=== PATIENT | female | born 1945 | race Caucasian/White ===

== ENCOUNTER → 2017-07-10 08:46 | Outpatient (CLI) | payer MEDICARE, SELFPAY ==
--- NOTE | 2017-07-10 08:51 | XR_ITS ---
XR hand LT min 3V HISTORY: ITS.REASON: Possible trigger finger ORDERING PHYSICIAN: Hitesh Garcia MD PATIENT AGE: 72 years COMPARISON: None FINDINGS: There are osteoarthritic changes of the first metacarpal carpal joint, the DIPs, PIPs, DIPs of the digits, and radial ulnar joint. There is flexion deformity of the fourth finger at the PIP. No fracture or dislocation. No lytic or blastic change. IMPRESSION: Osteoarthritis. Flexion deformity at the PIP of the fourth digit
== END ==
PROVIDERS: PCP Family Medicine; Visit Provider Orthopaedic Surgery
DX: M79.645 Pain in left finger(s) (principal)
CPT/HCPCS: 73130

== ENCOUNTER → 2017-09-11 13:55 | Outpatient (CLI) | payer MEDICARE, SELFPAY ==
[2017-09-11 14:23] LABS: Basophils # 0.1 K/mm3 (0-0.2); Basophils % 1.1 % (0.1-2.0); Eosinophils # 0.1 K/mm3 (0.0-0.4); Lymphocytes # 1.9 K/mm3 (0.7-4.5); Lymphocytes % 40.1 K/mm3 (10-50); Mean Corpuscular HGB Conc 33.3 g/dL (31.8-35.4); Mean Corpuscular Hemoglobin 29.7 pg (27.0-31.2); Mean Corpuscular Volume 89.2 fl (81-99); Mean Platelet Volume 8.5 fl (7.4-10.4); Monocytes # 0.3 K/mm3 (0.1-1.0); Monocytes % 6.2 % (1.7-9.3); Neutrophils # 2.3 K/mm3 (1.8-7.8); Neutrophils % 49.6 % (37.0-80.0); Platelet Count 174 K/mm3 (142-424); Red Blood Count 4.71 M/mm3 (4.20-5.40); Red Cell Distribution Width 12.9 % (11.5-17.5); White Blood Count 4.7 K/mm3 (4.8-10.8)
[2017-09-11 15:25] LABS: Alanine Aminotransferase 32 U/L (12-78); Albumin Level 3.8 gm/dL (3.4-5.0); Albumin/Globulin Ratio 1.3 (1.1-1.8); Alkaline Phosphatase 78 U/L (46-116); Anion Gap 13.7 mEq/L (5-15); Aspartate Amino Transferase 23 U/L (15-37); Bilirubin,Total 0.6 mg/dL (0.2-1.0); Blood Urea Nitrogen 19 mg/dL (7-18); Calcium 9.4 mg/dL (8.5-10.1); Carbon Dioxide 29 mmol/L (21.0-32.0); Chloride 102 mmol/L (98-107); Chol/HDL Ratio 2.3 (1-3.5); Cholesterol 159 mg/dL (140-200); Creatinine,Serum 0.77 mg/dL (0.55-1.02); Estimated Glomerular Filt Rate 74 ml/min (>60); GFR (African American) 89 ML/MIN (>60); Globulin 2.9 gm/dl (1.3-3.2); Glucose 248 mg/dL (74-106); HDL Cholesterol 69 mg/dL (29-89); LDL Cholesterol 57 mg/dL (0-130); Potassium 4.7 mmoL/L (3.5-5.1); Sodium 140 mmol/L (136-145); Thyroid Stimulating Hormone 1.92 uIU/ml (0.358-3.740); Total Protein,Serum 6.7 gm/dL (6.4-8.2); Triglycerides 163 mg/dL (30-200); VLDL Cholesterol 33 mg/dL (0-40)
[2017-09-13 09:17] LABS: Creatinine, Urine 32.8 mg/dL (Not Estab.); Microalbumin, Urine <3.0 ug/mL (Not Estab.)
[2017-09-13 20:10] LABS: Vitamin B12 1077 pg/mL (232-1245); Vitamin D 25 Hydroxy 51.7 ng/mL (30.0-100.0)
== END ==
PROVIDERS: Visit Provider Family Medicine
DX: E53.8 Deficiency of other specified B group vitamins (principal); E78.2 Mixed hyperlipidemia; E11.9 Type 2 diabetes mellitus without complications; E55.9 Vitamin D deficiency, unspecified; I10 Essential (primary) hypertension
CPT/HCPCS: 36415; 80053; 80061; 82043; 82570; 82607; 82652; 84443; 85025

== ENCOUNTER → 2017-09-13 11:22 | Outpatient (POV) | payer MEDICARE, SELFPAY | PROVIDERS: Visit Provider Podiatrist | DX: Z00.00 Encounter for general adult medical examination without abnormal findings (principal) ==

== ENCOUNTER 2018-04-09 08:55 | Outpatient (CLI) | payer MEDICARE, SELFPAY ==
[2018-04-09 09:02] VITALS: BMI 26.4
[2018-04-09 09:30] LABS: Calcium 8.8 mg/dL (8.5-10.1); Creatinine Clearance Estimated 62 mL/min (50-200); Creatinine,Serum 0.73 mg/dL (0.55-1.02); Estimated Glomerular Filt Rate 79 ml/min (>60); GFR (African American) 95 ML/MIN (>60)
[2018-04-09 09:31] LABS: Albumin Level 3.4 gm/dL (3.4-5.0)
[2018-04-09 10:10] VITALS: BP 137/65; PULSE 67; RESP 18
[2018-04-09 10:25] VITALS: BP 133/57; PULSE 61; RESP 18
== END 2018-04-09 10:35 | disposition home or self-care (01) ==
LOC: INF 09:00
PROVIDERS: Visit Provider Family Medicine
DX: M85.89 Other specified disorders of bone density and structure, multiple sites (principal)
CPT/HCPCS: 82040; 82310; 82565; 96374; J3489

== ENCOUNTER → 2018-04-18 08:41 | Outpatient (CLI) | payer MEDICARE, SELFPAY ==
--- NOTE | 2018-04-18 08:43 | MM_ITS ---
MM Dig screening mamm BI w/CAD CAD Screening COMPARISON: Digital mammograms with CAD 05/10/2015 and 05/16/2016 INDICATION: There is a history of breast cancer patient's sister diagnosed at age 60 TECHNIQUE: Standard CC and MLO images were obtained. R2 CAD reviewed. FINDINGS: Moderate diffuse heterogenic fibroglandular densities are seen in the central portions of both breasts. There are few scattered benign-appearing calcination is in each breast and there is arterial calcification right breast. There is a mole marker left breast. There is no suspicious lesion and there are no suspicious microcalcifications. IMPRESSION: Stable exam no suspicious lesion seen BI-RADS Category: 2 Benign Finding(s) RECOMMENDED FOLLOW-UP: 1YR - 1 YEAR FOLLOW-UP (A letter has been sent to the patient regarding results of the study.)
== END ==
PROVIDERS: PCP Family Medicine; Visit Provider Family Medicine
DX: Z12.31 Encounter for screening mammogram for malignant neoplasm of breast (principal)
CPT/HCPCS: 77067

== ENCOUNTER → 2018-07-22 08:26 | Outpatient (CLI) | payer MEDICARE, SELFPAY ==
[2018-07-22 09:12] LABS: Basophils # 0.1 K/mm3 (0-0.2); Basophils % 1.3 % (0.1-2.0); Eosinophils # 0.2 K/mm3 (0.0-0.4); Eosinophils % 4.2 % (0.1-12.0); Hemoglobin 14.7 g/dL (12.2-16.2); Lymphocytes # 2.7 K/mm3 (0.7-4.5); Lymphocytes % 52.8 % (10-50); Mean Corpuscular HGB Conc 32.7 g/dL (31.8-35.4); Mean Corpuscular Hemoglobin 29.5 pg (27.0-31.2); Mean Corpuscular Volume 90.2 fl (81-99); Mean Platelet Volume 7.8 fl (7.4-10.4); Monocytes # 0.3 K/mm3 (0.1-1.0); Monocytes % 6.7 % (1.7-9.3); Neutrophils # 1.8 K/mm3 (1.8-7.8); Platelet Count 177 K/mm3 (142-424); Red Blood Count 4.99 M/mm3 (4.20-5.40); Red Cell Distribution Width 13.2 % (11.5-17.5); White Blood Count 5.1 K/mm3 (4.8-10.8)
[2018-07-22 09:40] LABS: MANUAL DIFFERENTIAL MANUAL DIFFERENTIAL (MANUAL DIFF)
[2018-07-22 10:57] LABS: Alanine Aminotransferase 26 U/L (12-78); Albumin/Globulin Ratio 1.4 (1.1-1.8); Alkaline Phosphatase 45 U/L (46-116); Anion Gap 15.1 mEq/L (5-15); Aspartate Amino Transferase 20 U/L (15-37); Bilirubin,Total 0.9 mg/dL (0.2-1.0); Blood Urea Nitrogen 14 mg/dL (7-18); Calcium 9.3 mg/dL (8.5-10.1); Carbon Dioxide 28 mmol/L (21.0-32.0); Chloride 104 mmol/L (98-107); Chol/HDL Ratio 2.3 (1-3.5); Cholesterol 151 mg/dL (140-200); Creatinine,Serum 0.74 mg/dL (0.55-1.02); Eosinophils % 3 % (0-3); Estimated Glomerular Filt Rate 77 ml/min (>60); GFR (African American) 93 ML/MIN (>60); Globulin 2.9 gm/dl (1.3-3.2); Glucose 142 mg/dL (74-106); HDL Cholesterol 65 mg/dL (29-89); LDL Cholesterol 63 mg/dL (0-130); Lymphocytes % 51 % (10-50); Monocytes % 6 % (2-9); Neutrophils % 39 % (42-76); Potassium 4.1 mmoL/L (3.5-5.1); RBC Morphology Normal; Sodium 143 mmol/L (136-145); Thyroid Stimulating Hormone 3.76 uIU/ml (0.358-3.740); Total Cells Counted 100; Total Protein,Serum 6.9 gm/dL (6.4-8.2); Triglycerides 113 mg/dL (30-200); VLDL Cholesterol 23 mg/dL (0-40)
[2018-07-22 10:58] LABS: Platelet Estimate Normal
[2018-07-23 10:14] LABS: Creatinine, Urine 96.1 mg/dL (Not Estab.); Microalbumin, Urine 5.9 ug/mL (Not Estab.)
== END ==
PROVIDERS: Visit Provider Internal Medicine Endocrinology, Diabetes & Metabolism
DX: E11.65 Type 2 diabetes mellitus with hyperglycemia (principal); Z79.84 Long term (current) use of oral hypoglycemic drugs
CPT/HCPCS: 36415; 80053; 80061; 82043; 82570; 84443; 85007; 85025

== ENCOUNTER 2018-08-05 11:00 | Outpatient (RCR) | payer MEDICARE, SELFPAY ==
--- NOTE | 2018-06-02 16:19 | HMH.PTOPEV ---
PT Outpatient Evaluation Rehab PT Outpatient Evaluation Start: 06/02/18 16:00 Freq: Status: Active Protocol: Document 06/02/18 16:01 HUGH (Rec: 06/02/18 16:14 PHORNE [id number]) Electronically Signed By Lexx Mehta, PT 06/02/18 16:01 Outpatient Therapy Subjective History Subjective History Pt is 73 yowf who presents with c/o decreased balance, especially during ambulation, x ~ 6 mos with insidious, gradual onset of symptoms. She reports often feeling like I 'm veering off to the side when I walk. and c/o decreased endurance with most activity. She reports that ~ 2 yrs ago she fell on a sidewalk with resulting pelvic fxs and humerus fx that had to be repaired with a reverse total shld surgery. She also reports she has hx of blurred vision due to problems with her retina, but she sees an opthalmalogist every 6 mos. PMH: HTN, DM-II, Aortic valve replacement. Chief Complaint Weakness Symptoms Relieved By Nothing Symptoms Aggravated By Walking Prior Functional Limitations Walking Stairs Current Functional Limitations Walking Stairs Balance Level of pain today (0-10) 0 Pain scale - at its worst (0-10) 0 Balance Eval Hx of Falls Hx Falls Yes Number in last 6 months 0 Gait/Posture Asssessment General Gait Observation Wide Based Gait Assistive Devices None / NA Hip Observation in Gait Swing Decreased Flexion Hip Observation in Gait Stance Inadequate Extension Ankle/Foot Observation in Gait Swing No Deviation Ankle/Foot Observation in Gait Stance No Deviation Body Alignment Posture Rigid Nystagmus Nystagmus Presence None Oculomotor Gaze Oculomotor Gaze Nml: Vergence Smooth Pursuit Saccades VOR Cancellation [place] Feet Together/Eyes open/Stable Surface pass Feet Together/Eyes Closed/Stable Surface pass Feet Together/Eyes open/Unstable Surface pass Feet Together/Eyes Closed/Unstable pass Surface Dynamic Gait Index Test Protocol Gait Level Whitaker
--- NOTE | 2018-07-08 08:51 | HMH.RHREAS ---
Rehab Reassessment Rehab OP Re-assessment Start: 07/08/18 08:48 Freq: Status: Active Protocol: Document 07/08/18 08:48 HUGH (Rec: 07/08/18 08:51 HUGH [id number]) Electronically Signed By Lexx Mehta, PT 07/08/18 08:48 Rehab Re-assessment Subjective Subjective Pt reports feeling stronger with better balance and less anxious when walking outside. Objective Objective Notes Dynamic Gait Index (DGI)= 21/ 24. MMT rick LE 4+/5 throughout . Assessment Progress Assessment Progressing as Expected Assessment Notes Pt with significant improvement in static and dynamic balance. DGI is 3 pts higher. Patient goals met ST,2,3,4 LT Goals Not Met LT,2,3,5 Revised Goals None Plan Plan Continue per initial POC. Transition to independent with wellness program. Frequency of Therapy 1-2 x/wk Duration of therapy 4 wks Time and Billing Re-Eval Time 15 Re-Eval Billing Units 1 PHYSICIAN CERTIFICATION: I certify the specified therapy services for Halley Stallworth are required, authorized, and reviewed every 30 days.
== END 2018-08-05 11:05 | disposition home or self-care (01) ==
LOC: PT 11:00
PROVIDERS: Visit Provider Family Medicine
DX: R27.0 Ataxia, unspecified (principal)
CPT/HCPCS: 97110; 97112; 97163; 97164

== ENCOUNTER → 2019-01-20 11:40 | Outpatient (CLI) | payer MEDICARE, SELFPAY ==
[2019-01-20 14:39] LABS: Free T4 (Free Thyroxine) 0.89 ng/dl (0.76-1.46); Thyroid Stimulating Hormone 1.92 uIU/ml (0.358-3.740)
[2019-01-21 16:46] LABS: Thyroglobulin Level <1.0 IU/mL (0.0-0.9); Triiodothyronine (T3) Free 2.7 pg/mL (2.0-4.4)
== END ==
PROVIDERS: Visit Provider Internal Medicine Endocrinology, Diabetes & Metabolism
DX: E78.5 Hyperlipidemia, unspecified (principal); E34.9 Endocrine disorder, unspecified; E11.65 Type 2 diabetes mellitus with hyperglycemia; R94.6 Abnormal results of thyroid function studies; Z79.84 Long term (current) use of oral hypoglycemic drugs
CPT/HCPCS: 36415; 84439; 84443; 84481; 86800

== ENCOUNTER → 2019-06-01 08:55 | Outpatient (CLI) | payer MEDICARE, SELFPAY ==
--- NOTE | 2019-06-01 09:03 | MM_ITS ---
PROCEDURE: MM DIG SCREENING MAMM BI W/CAD CLINICAL INDICATION: SCREENING There is a history of breast cancer in patient's sister diagnosed at age 60. COMPARISON: [facility] DIG MAMM-SCREEN AGUSTINA from 05/10/2015 [facility] DIG MAMM-SCREEN AGUSTINA W/CAD from 05/16/2016 [facility] MM Dig screening mamm BI w/CAD from 04/18/2018 TECHNIQUE: Standard CC and MLO images and 3D Tomosynthesis was obtained. R2 CAD reviewed. FINDINGS: Moderate diffuse somewhat heterogenic fibroglandular densities are seen in the central portions of both breasts. There are scattered benign-appearing calcifications in each breast and there is minimal arterial calcification noted bilaterally. Twan images are helpful in this type of heterogenic breast parenchyma and I see no suspicious lesion in either breast. There are no suspicious microcalcifications. IMPRESSION: Moderate breast density with no suspicious lesions seen BI-RAD Category: 2 Benign Finding(s) FOLLOW-UP: 1YR 1 Year Follow-up (A letter has been sent to the patient regarding results of the study.) Dictated by: Dr. Fausto Rubio MD 06/02/2019 09:[address] Fausto Rubio MD in [place] 06/02/2019 09:36
== END ==
PROVIDERS: PCP Family Medicine; Visit Provider Family Medicine
DX: Z12.31 Encounter for screening mammogram for malignant neoplasm of breast (principal)
CPT/HCPCS: 77063; 77067

== ENCOUNTER → 2019-08-17 08:19 | Outpatient (CLI) | payer MEDICARE, SELFPAY ==
--- NOTE | 2019-08-17 08:42 | XR_ITS ---
PROCEDURE: XR DEXA AXIAL SKELETON CLINICAL HISTORY: OSTEOPENIA COMPARISON: No exams were available for comparison FINDINGS: Right femoral neck density 0.713 grams/centimeters sq with a T-score of -1.2. Post a left femur density is 0.760 grams/centimeters sq with a T-score of -1 point. L1-L4 density is 1.102 grams/centimeters sq with a T-score of 0.5. IMPRESSION: Osteopenia with moderate fracture risk. Treatment advised. Suggest follow-up exam in 2 years Dictated by: Juan Jose Barrios MD 08/17/2019 15:04 Electronically signed by Juan Jose Barrios MD in [place] 08/17/2019 15:04
--- NOTE | 2019-08-17 08:43 | FL_ITS ---
PROCEDURE: FL UPPER GI W AIR CLINICAL INDICATION: ESOPHAGEAL DYSPHAGIA COMPARISON: No exams were available for comparison TECHNIQUE: FLUOROSCOPY TIME : 1 minutes and 31 seconds FINDINGS: The esophagus, stomach, and duodenum have an unremarkable appearance.There is a small sliding hiatal hernia with non constricting Schatzki's ring. There has been a prior cholecystectomy. There was some minimal GE reflux. No ulcer or mass evident. No mucosal abnormalities apparent. There is normal peristalsis. The duodenal C-loop is nondisplaced. There has been a prior median sternotomy. IMPRESSION: Small sliding hiatal hernia with non constricting Schatzki's ring and minimal GE reflux Dictated by: Juan Jose Barrios MD 08/17/2019 14:47 Electronically signed by Juan Jose Barrios MD in [place] 08/17/2019 14:47
[2019-08-17 10:27] LABS: Chloride 105 mmol/L (98-107); Potassium 4.1 mmoL/L (3.5-5.1); Sodium 138 mmol/L (136-145)
[2019-08-17 10:30] LABS: Alanine Aminotransferase 17 U/L (12-78); Albumin Level 4.2 g/dl (3.5-5.0); Albumin/Globulin Ratio 1.8 (1.1-1.8); Alkaline Phosphatase 47 U/L (38-126); Anion Gap 8.1 mEq/L (5-15); Aspartate Amino Transferase 29 U/L (14-36); Bilirubin,Total 0.8 mg/dl (0.2-1.3); Blood Urea Nitrogen 17 mg/dl (7-17); Carbon Dioxide 29 mmol/L (22.0-30.0); Cholesterol 130 mg/dl (140-200); Estimated Glomerular Filt Rate 82 ml/min (>60); GFR (African American) 99 ML/MIN (>60); Globulin 2.4 g/dL (1.3-3.2); Total Protein,Serum 6.6 g/dl (6.3-8.2); Triglycerides 118 mg/dl (30-150); VLDL Cholesterol 24 mg/dL (0-40)
[2019-08-17 10:31] LABS: Chol/HDL Ratio 2.2 (1-3.5); HDL Cholesterol 59 mg/dl (40-60)
[2019-08-17 10:37] LABS: Calcium 9.4 mg/dl (8.4-10.2)
[2019-08-17 10:41] LABS: Direct LDL Cholesterol 67.04 mg/dL (100-129)
[2019-08-17 10:49] LABS: Glucose 149 mg/dl (74-100)
[2019-08-17 11:01] LABS: Thyroid Stimulating Hormone 3.66 uIU/mL (0.465-4.68)
[2019-08-18 09:40] LABS: Microalbumin, Urine 29.2 ug/mL (Not Estab.)
[2019-08-18 12:44] LABS: Vitamin B12 837 pg/mL (232-1245); Vitamin D 25 Hydroxy 61.9 ng/mL (30.0-100.0)
== END ==
PROVIDERS: PCP Family Medicine; Visit Provider Family Medicine
DX: R13.10 Dysphagia, unspecified (principal); M85.89 Other specified disorders of bone density and structure, multiple sites; I10 Essential (primary) hypertension; E53.8 Deficiency of other specified B group vitamins; E78.1 Pure hyperglyceridemia; E78.2 Mixed hyperlipidemia; E55.9 Vitamin D deficiency, unspecified
CPT/HCPCS: 36415; 74246; 77080; 80053; 80061; 82043; 82570; 82607; 82652; 84443

== ENCOUNTER → 2019-09-02 10:00 | Outpatient (CLI) | payer MEDICARE, SELFPAY ==
[2019-09-03 14:14] LABS: Covid-19 Nasal PCR Sendout Lex NOT DETECTED
== END ==
PROVIDERS: Visit Provider Internal Medicine Gastroenterology
DX: Z03.818 Encounter for observation for suspected exposure to other biological agents ruled out (principal)
CPT/HCPCS: U0004

== ENCOUNTER 2019-09-04 09:49 | Day surgery (SDC) | payer MEDICARE, SELFPAY ==
--- NOTE | 2019-08-31 15:24 | SUR.PREOP ---
08/31/2019--PHONE CALL MADE TO PATIENT. PATIENT UNDERSTANDS THAT LAB WORK AND COVID TESTING NEEDS TO BE COMPLETED @ 0930 ON 09/02/2019. PATIENT UNDERSTANDS IF LAB WORK AND COVID-19 TESTS ARE NOT COMPLETED BY 12PM ON THAT DATE, THE SURGERY SCHEDULED WILL BE CANCELLED AND RESCHEDULED FOR ANOTHER TIME.
[2019-09-01 12:17] VITALS: BMI 26.6
[2019-09-04] VITALS (7 sets, daily range): BP systolic 89–146; BP diastolic 46–67; PULSE 50–64; RESP 18; TEMP 36.1; O2SAT 92–98
[2019-09-04 10:26] LABS: POC Glucose,Bedside 147 (70-110)
--- NOTE | 2019-09-04 11:41 | P.PCN_ITS ---
[facility] Procedure Note Procedure Note:: Upper Endoscopy Procedure Report: Esophagogastroduodenoscopy with cold biopsies and TTS balloon dilation Endoscopost: Diego Grimaldo II, MD Referring Physician: Mateusz Estevez MD Date of Procedure: September 04, 2019 Equipment: Olympus GIF 180 standard upper endoscope Sedation: MAC sedation Indications: Mrs. Stallworth is a 74-year-old female with increasing dysphagia to meats/solids. She also has had some heartburn, indigestion and belching. She reports no bloating, nausea or early satiety. She is not on any PPI therapy. She did have a barium swallow/upper GI series on August 17, 2019. She did have a very small hiatal hernia with non-constricting Schatzki's ring and minimal GE reflux. The patient does have some alternating constipation with diarrhea (alternating IBS). The patient does have a family history of colon cancer (mother in her 60s). The patient did have 3 consecutive normal colonoscopies in August 1999, December 2004 and January 2010. She has not had a colonoscopy since 2009. Procedure: Prior to the procedure, a history and physical exam was performed, and patient's medications and allergies were reviewed. The risks, benefits and alternatives of the sedation and procedure were discussed with the patient. All questions were answered and informed consent was obtained. The patient was brought to the procedure room. Patient identification and proposed procedure were verified by the physician and the nurse. The patient was placed in a left lateral decubitus position and the scope was passed under direct vision. Throughout the procedure, the patient's blood pressure, pulse, and oxygen saturations were monitored continuously. The upper GI endoscopy was accomplished without difficulty. The patient tolerated the procedure well. Findings: The scope was passed directly into the upper esophagus and advanced to the third portion of the duodenum. The post bulbar duodenum and duodenal bulb were normal with normal mucosa and conniventes. There was minimal scalloping of the duodenal conniventes so biopsies were obtained to rule out celiac disease. The scope was withdrawn through a normal duodenal bulb and pylorus into the stomach. There was bile reflux with some mild linear reactive gastropathy of the antrum and body. There were a couple of erosions identified. The remainder of the antrum, body and fundus of the stomach were grossly normal. Upon retroflexion there was a very small 1 to 2 cm sliding hiatal hernia. 2 biopsies were taken in the antrum and along the lesser curvature for histology to rule out gastritis and/or H pylori. The scope was then withdrawn into the esophagus. There was a distal Schatzki's ring. There was also grade A?B reflux esophagitis (LA classification). Biopsies were taken at the GE junction. This Schatzki's ring and entire esophagus were dilated to 60 Armenian/20 mm with a TTS hydrostatic balloon. There was some resistance at the cricopharyngeus. The remainder of the esophageal mucosa was normal. Impression: 1. Schatzki's ring dilated to 20 mm 2. Grade A?B reflux esophagitis with very small 1 to 2 cm hiatal hernia 3. Bile reflux with linear reactive gastropathy Plan: I would recommend PPI therapy daily for 3 months for healing of the reflux esophagitis and Schatzki's ring. I will follow-up the biopsies. I would encourage repeat surveillance colonoscopy due to her family history and length recent surveillance interval 10 years.
== END 2019-09-04 12:58 | disposition home or self-care (01) ==
LOC: OUTP 09:51
PROVIDERS: PCP Family Medicine; Visit Provider Internal Medicine Gastroenterology
PROC: 0DJ08ZZ Inspection of Upper Intestinal Tract, Via Natural or Artificial Opening Endoscopic (ICD-10-PCS; CPT 43235; principal; 2019-09-04 11:00)
DX: K22.2 Esophageal obstruction (principal); K44.9 Diaphragmatic hernia without obstruction or gangrene; K31.9 Disease of stomach and duodenum, unspecified; K21.0 Gastro-esophageal reflux disease with esophagitis; R13.10 Dysphagia, unspecified; E11.9 Type 2 diabetes mellitus without complications; Z79.84 Long term (current) use of oral hypoglycemic drugs; I10 Essential (primary) hypertension; K58.2 Mixed irritable bowel syndrome
CPT/HCPCS: 43239; 43249; 82962; 88305; C1726

== ENCOUNTER → 2019-10-02 11:03 | Outpatient (CLI) | payer MEDICARE, SELFPAY ==
[2019-10-02 13:40] LABS: Coronavirus 19 IgG Antibody Negative (Negative); Coronavirus 19 IgM Antibody Negative (Negative)
== END ==
PROVIDERS: Visit Provider Internal Medicine Gastroenterology
DX: Z01.818 Encounter for other preprocedural examination (principal)
CPT/HCPCS: 36415; 86328

== ENCOUNTER 2019-10-05 09:58 | Day surgery (SDC) | payer MEDICARE, SELFPAY ==
--- NOTE | 2019-09-30 10:35 | SUR.PREOP ---
Instructed to come to [facility] for COVID testing 10/01 between 8-
[2019-10-05] VITALS (7 sets, daily range): BP systolic 72–150; BP diastolic 38–83; PULSE 47–58; RESP 18; TEMP 36.3–36.6; O2SAT 96–100; BMI 26.8
[2019-10-05 10:29] LABS: POC Glucose,Bedside 97 (70-110)
--- NOTE | 2019-10-05 10:32 | HMH.PROC ---
[facility] Procedure Note Procedure Note:: Colonoscopy Procedure Report: Colonoscopy with cold snare polypectomy Endoscopist: Diego Grimaldo II, MD Referring physician: Mateusz Estevez MD Date of Procedure: October 05, 2019 Equipment: Olympus 180 variable stiffness pediatric colonoscope Sedation: MAC sedation Indication: Mrs. Stallworth is a 74-year-old female who is here for follow-up screening/surveillance colonoscopy. Her mother had colon cancer in her 60s. The patient did have normal colonoscopies in August 1999, December 2004 and January 2010. The patient does have some long-term bowel irregularity (alternating constipation with diarrhea?alternating IBS). She reports no rectal bleeding, abdominal pain or weight loss. She did recently have an EGD with dilation of a Schatzki's ring. She was placed on omeprazole and her symptoms of heartburn and indigestion have significantly improved. Procedure: Prior to the procedure, a history and physical exam was performed, and patient's medications and allergies were reviewed. The risks, benefits and alternatives of the sedation and procedure were discussed with the patient. All questions were answered and informed consent was obtained. The patient was brought to the procedure room. Patient identification and proposed procedure were verified by the physician and the nurse. The patient was placed in a left lateral decubitus position and the scope was passed under direct vision. Throughout the procedure, the patient's blood pressure, pulse, and oxygen saturations were monitored continuously. The colonoscopy was accomplished without difficulty. The patient tolerated the procedure well. Findings: On digital rectal examination there was normal rectal tone. There were no external hemorrhoids. The colonoscope was introduced through the anal canal to the rectum and advanced to the cecum. The ileocecal valve and appendiceal orifice were identified. The scope was advanced a short distance into the ileum which appeared grossly normal. The scope was then withdrawn into the colon. The cecum and ascending colon were normal. There was a 6 mm polyp in the transverse colon removed via cold snare polypectomy. There were a few scattered diverticuli throughout the descending and sigmoid colon (LEFT colon). The rectum itself was normal. Upon retroflexion within the rectum there were grade 1 internal hemorrhoids. The preparation was excellent throughout with [place] Preparation Score of 9. The cecal time was 10 minutes. Impression: 1. Transverse colon polyp (6 mm) 2. Left-sided diverticulosis (mild) 3. Grade 1 internal hemorrhoids Plan: I will follow up the polyp pathology and recommend repeat colonoscopy again in 5 years based upon the patient's family history and present polyp histology. I would encourage fiber supplementation on a long-term daily maintenance basis.
--- NOTE | 2019-10-05 10:40 | HMH.ANESCL ---
[facility] Anesthesia Checklist - Patient Identification Patient Identification: Arm Band - Structural Data Admitted From: Home Planned Operative Procedure/s: colonoscopy Consent for Planned Operative Procedure(s) Verified: Yes Verified Documents: Surgical Consent, History and Physical - NPO Status Verified Time NPO: 00:00 - Additional verifications Anesthesia Reactions: No Hx Blood Transfusions: No Blood Transfusion Reaction: No - Airway Assessment C-Spine Mobility Assessed: Yes (mp2) TMJ Mobility Assessed: Yes Dentition: Good Dentition - Neurological Assessment Level of Consciousness: Awake, Alert - Anesthesia Plan Anesthesia Risk discussed: Yes Anesthesia Plan: Verified ASA Class: III Anesthesia Type: MAC [facility] History I have reviewed the patient's past medical history: Yes Medical History: Reports:: Diabetes Mellitus Type 2, Gastroesophageal Reflux Disease(GERD), Hyperlipidemia, Hypertension Denies:: Cancer, Chronic Obstructive Pulmonary Disease (COPD), Diabetes Mellitus Type 1, Internal Pacemaker, MRSA, Seizures *Have you ever received a pneumonia vaccine?: Yes *Have you received a flu vaccine this season?: Yes Other Medical History: Reports: Cataracts. Denies: Blood Transfusion Reaction Anesthesia experience/problems:: nac Laterality Cases: Left: Arthroscopy Shoulder, Bilateral: Tonsillectomy Other Surgeries: Yes: Cardiac Surgery, Cholecystectomy, Tubal Ligation. No: Pacemaker Amputation: No Fractures: Yes (Right Foot Fracture 10 years ago ) - *Social History Educational Level: Completed High School Smoking Status: Never smoker Alcohol Intake: never Alcohol Intake Frequency:: other Substance Use Type: denies use *Occupational Status:: retired Housing: house Household Members: spouse *Travel in the last 8 weeks: None Family Hx:: Cancer, Diabetes
--- NOTE | 2019-10-05 11:00 | PC.NURSE ---
sophia ADORNO [employer]OOK [employer] AWARE AND OKAY WITH DECREASED BP. CONTINUE TO TRY TO AWAKEN AND STIMULATE PT. RESPIRATION EVEN AND UNLABORED.
== END 2019-10-05 11:40 | disposition home or self-care (01) ==
LOC: OUTP 10:00
PROVIDERS: PCP Family Medicine; Visit Provider Internal Medicine Gastroenterology
PROC: 0DJD8ZZ Inspection of Lower Intestinal Tract, Via Natural or Artificial Opening Endoscopic (ICD-10-PCS; CPT 45378; principal; 2019-10-05 11:00)
DX: Z12.11 Encounter for screening for malignant neoplasm of colon (principal); K57.30 Diverticulosis of large intestine without perforation or abscess without bleeding; K64.0 First degree hemorrhoids; Z80.0 Family history of malignant neoplasm of digestive organs; K58.2 Mixed irritable bowel syndrome; Z87.19 Personal history of other diseases of the digestive system; K63.5 Polyp of colon; E11.9 Type 2 diabetes mellitus without complications; Z79.82 Long term (current) use of aspirin; Z79.84 Long term (current) use of oral hypoglycemic drugs; Z79.899 Other long term (current) drug therapy
CPT/HCPCS: 45385; 82962; 88305

== ENCOUNTER → 2019-10-30 08:43 | Outpatient (CLI) | payer MEDICARE, SELFPAY ==
[2019-10-30 09:39] LABS: Creatinine,Urine Random 110 mg/dL (Not Estab.)
[2019-10-30 09:40] LABS: Microalbumin/Creatinine Ratio 13.8
[2019-10-30 09:44] LABS: Chloride 106 mmol/L (98-107); Potassium 4.5 mmoL/L (3.5-5.1); Sodium 139 mmol/L (136-145)
[2019-10-30 09:46] LABS: Alanine Aminotransferase 17 U/L (12-78); Aspartate Amino Transferase 27 U/L (14-36); Blood Urea Nitrogen 19 mg/dl (7-17); Estimated Glomerular Filt Rate 98 ml/min (>60); GFR (African American) 119 ML/MIN (>60)
[2019-10-30 09:47] LABS: Alkaline Phosphatase 39 U/L (38-126); Anion Gap 7.5 mEq/L (5-15); Bilirubin,Total 0.8 mg/dl (0.2-1.3); Calcium 9.4 mg/dl (8.4-10.2); Carbon Dioxide 30 mmol/L (22.0-30.0); Chol/HDL Ratio 2.2 (1-3.5); Cholesterol 132 mg/dl (140-200); Glucose 142 mg/dl (74-100); HDL Cholesterol 59 mg/dl (40-60); Triglycerides 81 mg/dl (30-150); VLDL Cholesterol 16 mg/dL (0-40)
[2019-10-30 09:58] LABS: Direct LDL Cholesterol 64.84 mg/dL (100-129)
[2019-10-30 10:16] LABS: 25-OH Vitamin D, Total 62.4 ng/mL (30-100)
[2019-10-30 10:17] LABS: Thyroid Stimulating Hormone 3.27 uIU/mL (0.465-4.68)
[2019-10-31 11:11] LABS: Vitamin B12 1141 pg/mL (232-1245)
== END ==
PROVIDERS: Visit Provider Internal Medicine Endocrinology, Diabetes & Metabolism
DX: E11.9 Type 2 diabetes mellitus without complications (principal); E53.8 Deficiency of other specified B group vitamins; E55.9 Vitamin D deficiency, unspecified; I10 Essential (primary) hypertension; Z79.84 Long term (current) use of oral hypoglycemic drugs
CPT/HCPCS: 36415; 80053; 80061; 82043; 82306; 82570; 82607; 84443

== ENCOUNTER 2020-04-04 10:05 | Outpatient (CLI) | payer MEDICARE, SELFPAY ==
[2020-04-04 10:08] VITALS: BMI 26.6
[2020-04-04 10:40] LABS: Albumin Level 4.4 g/dl (3.5-5.0)
[2020-04-04 10:43] LABS: Calcium 9.5 mg/dl (8.4-10.2)
[2020-04-04 11:01] LABS: Creatinine Clearance Estimated 59 mL/min (50-200); Estimated Glomerular Filt Rate 70 ml/min (>60); GFR (African American) 85 ML/MIN (>60)
[2020-04-04 11:05] VITALS: BP 145/68; PULSE 52; RESP 18; TEMP 36.3; O2SAT 98
[2020-04-04 11:27] VITALS: BP 139/69; PULSE 54; RESP 18; O2SAT 97
== END 2020-04-04 11:27 | disposition home or self-care (01) ==
LOC: INF 10:05
PROVIDERS: Visit Provider Family Medicine
DX: M85.89 Other specified disorders of bone density and structure, multiple sites (principal)
CPT/HCPCS: 82040; 82310; 82565; 96374; J3489

== ENCOUNTER → 2020-05-27 08:33 | Outpatient (CLI) | payer MEDICARE, SELFPAY ==
[2020-05-27 09:16] LABS: Microalbumin/Creatinine Ratio 17.7
[2020-05-27 09:19] LABS: Creatinine,Urine Random 84 mg/dL (Not Estab.); Hemoglobin A1C 6.9 % (4.0-6.0)
[2020-05-27 09:24] LABS: Chloride 105 mmol/L (98-107); Sodium 141 mmol/L (136-145)
[2020-05-27 09:25] LABS: Potassium 3.9 mmoL/L (3.5-5.1)
[2020-05-27 09:27] LABS: Alanine Aminotransferase 21 U/L (12-78); Albumin Level 4.6 g/dl (3.5-5.0); Albumin/Globulin Ratio 1.8 (1.1-1.8); Alkaline Phosphatase 53 U/L (38-126); Anion Gap 8.9 mEq/L (5-15); Aspartate Amino Transferase 31 U/L (14-36); Bilirubin,Total 0.9 mg/dl (0.2-1.3); Blood Urea Nitrogen 15 mg/dl (7-17); Carbon Dioxide 31 mmol/L (22.0-30.0); Cholesterol 144 mg/dl (140-200); Estimated Glomerular Filt Rate 82 ml/min (>60); GFR (African American) 99 ML/MIN (>60); Globulin 2.5 g/dL (1.3-3.2); Total Protein,Serum 7.1 g/dl (6.3-8.2); Triglycerides 134 mg/dl (30-150); VLDL Cholesterol 27 mg/dL (0-40)
[2020-05-27 09:28] LABS: Calcium 9.9 mg/dl (8.4-10.2); Chol/HDL Ratio 2.3 (1-3.5); Glucose 131 mg/dl (74-100); HDL Cholesterol 64 mg/dl (40-60)
[2020-05-27 09:39] LABS: Direct LDL Cholesterol 54.49 mg/dL (100-129)
[2020-05-27 09:57] LABS: Thyroid Stimulating Hormone 3.87 uIU/mL (0.465-4.68)
[2020-05-27 10:15] LABS: Vitamin B12 867 pg/mL (239-931)
== END ==
PROVIDERS: Family Medicine; Visit Provider Internal Medicine Endocrinology, Diabetes & Metabolism
DX: I10 Essential (primary) hypertension (principal); E11.9 Type 2 diabetes mellitus without complications; E78.00 Pure hypercholesterolemia, unspecified; E53.8 Deficiency of other specified B group vitamins; E55.9 Vitamin D deficiency, unspecified; Z79.84 Long term (current) use of oral hypoglycemic drugs
CPT/HCPCS: 36415; 80053; 80061; 82043; 82306; 82570; 82607; 83036; 84443

== ENCOUNTER → 2020-08-19 08:54 | Outpatient (CLI) | payer MEDICARE, SELFPAY ==
--- NOTE | 2020-08-19 09:01 | MM_ITS ---
PROCEDURE INFORMATION: Exam: MG Screening 3D Mammography Exam date and time: 08/19/2020 9:01 AM Age: 75 years old Clinical indication: Encounter for screening mammogram for malignant neoplasm of breast TECHNIQUE: Imaging protocol: Screening tomosynthesis and 2D mammography including computer-aided detection (CAD) when performed. COMPARISON: 1. MG MM DIG SCREENING MAMM BI W/CAD 06/01/2019 9:08 AM 2. MG [facility] MM Dig screening mamm BI w/CAD 04/18/2018 8:58 AM FINDINGS: MAMMOGRAPHY: Breast composition: The breast tissue is heterogeneously dense, which may obscure small masses. Mass: None. Architectural distortion: None. Calcifications: No suspicious calcifications. Asymmetric density: None. Skin thickening: None. Axillary adenopathy: None. IMPRESSION: No mammographic evidence of malignancy. Annual screening is recommended unless otherwise clinically indicated. ASSESSMENT: BI-RADS Category 1: Negative
== END ==
PROVIDERS: PCP Family Medicine; Visit Provider Family Medicine
DX: Z12.31 Encounter for screening mammogram for malignant neoplasm of breast (principal)
CPT/HCPCS: 77063; 77067

== ENCOUNTER 2020-12-24 09:51 | Emergency (ER) | payer MEDICARE, SELFPAY ==
[2020-12-24 10:00] VITALS: BP 143/63; PULSE 58; RESP 20; TEMP 36.7; O2SAT 100; BMI 27.4
--- NOTE | 2020-12-24 10:39 | HMH.EDUTC ---
[facility] [place] Disposition Clinical Impression: Exposure to COVID-19 virus Disposition: Home, Self-Care Condition on Discharge: Good Instructions: DI for COVID-19 (Suspected or Confirmed ), Preventing the Spread of Coronavirus Discharge Instructions Additional Instructions: *Monitor Temp, Over the counter Motrin or Tylenol as directed/as needed Tylenol every 4 hours and Motrin every 6 hours (as long as your family doctor has told you that you can take it) for fever or pain. and straight to ER if unable to lower temp less than 101.0 after medication given Follow up IMMEDIATELY for new or worsening symptoms or no Noticeable improvement over the next 48-72 hours. 911 for difficulty breathing or swallowing You were tested for today for COVID19 your test result should be back in the next 24-48 hours, You was given written instructions for [facility] portal you can see your results there when they come back you may check it often to see if they are done You was given a handout with instructions for Self Quarantine and Self isolation for while you wait on test results and what to do if they are positive If you are positive the Health Dept will be contacting you also Make sure to take your Vitamins Vit. C Vit D and Zinc if you can take them Referrals: Mateusz Estevez MD [Primary Care Provider] - As needed Time of Disposition: 10:42 Medical Decision Making - Martin Inquiry Pt receiving controlled substance: No Martin was queried for this patient: No Vital Signs: 12/24/20 10:00 Temperature 98.1 F Temperature Source Oral Pulse Rate [Right Brachial] 58 L Respiratory Rate 20 Blood Pressure [Right Arm] 143/63 H Blood Pressure Mean [Right Arm] 89 Blood Pressure Source [Right Arm] Automatic Cuff Blood Pressure Position [Right Arm] Sitting 02 Sat by Pulse Oximetry 100 Oxygen Delivery Method Room Air Orders (Tests/Meds): ORDERS Category Date Time Status Covid-19 Nasal PCR ([facility]) Routine Lab 12/24/20 10:05 Received [facility] HPI - General Stated complaint: covid test Time Seen by Provider: 12/24/20 10:39 Mode of Arrival: Ambulatory Source of Information: Patient Limitations: No Limitations Description of Symptoms (Recalled from Triage Doc. by RN): COVID TEST D/T COVID EXPOSURE THIS PAST SATURDAY AT [facility]. DENIES SYMPTOMS HEENT Symptoms (Recalled from RN notes): No Resp Symptoms (Recalled from RN notes): No Skin Symptoms (Recalled from RN notes): No MS Symptoms (Recalled from RN notes): No Functional Status (Recalled from RN notes): WNL - History of Present Illness Provider Complaint: Patient states that she was around family members last Saturday at [facility] that tested positive for COVID states that she wanted to get tested to make sure that she didnt have it Denies any symptoms - Related Data Home Medications Medication Instructions Recorded Confirmed Lactobacills gasseri-Bifidobac 1 cap PO DAILY 07/10/17 04/04/20 bifidum,longum 1.5 billion cell capsule calcium carbonate 500 mg calcium 500 mg PO BID tab 07/10/17 04/04/20 (1,250 mg) tablet coenzyme Q10 75 mg capsule 75 mg PO DAILY 07/10/17 04/04/20 colesevelam 625 mg tablet 1,250 mg PO BID 07/10/17 04/04/20 empagliflozin 25 mg tablet 25 mg PO QAM 07/10/17 04/04/20 metoprolol tartrate 25 mg tablet 12.5 mg PO BID 07/10/17 04/04/20 omega-3 acid ethyl esters 1 gram 2 cap PO BID 07/10/17 04/04/20 capsule pravastatin 40 mg tablet 40 mg PO QHS 07/10/17 04/04/20 ramipril 2.5 mg capsule 2.5 mg PO BID 07/10/17 04/04/20 vitamin D3 800 unit-folic acid 1 800 cap PO BID 07/10/17 04/04/20 mg-collagen,hydrolys 300 mg capsule Multivitamin [Multivitamins] 1 each PO DAILY 08/13/17 04/04/20 Aspirin [Aspirin 81mg EC Tab] 81 mg PO DAILY 04/09/18 04/04/20 cyanocobalamin (vitamin B-12) 1,000 mcg PO DAILY 04/29/19 04/04/20 1,000 mcg capsule glimepiride 4 mg tablet 4 mg PO BID tab 04/29/19 04/04/20 metformin 1,000 mg tablet 1,000 mg PO BID tab 04/29/19 04/04/20 omeprazole
[2020-12-24 10:45] VITALS: BP 143/63; PULSE 58; RESP 20; TEMP 36.7; O2SAT 100
== END 2020-12-24 10:50 | disposition home or self-care (01) ==
PROVIDERS: Emergency Provider Nurse Practitioner; PCP Family Medicine
DX: Z20.822 Contact with and (suspected) exposure to COVID-19 (principal)
CPT/HCPCS: 99202; G0463; U0003

== ENCOUNTER → 2021-01-04 09:47 | Outpatient (CLI) | payer MEDICARE, SELFPAY | PROVIDERS: Visit Provider Internal Medicine Gastroenterology | DX: Z01.812 Encounter for preprocedural laboratory examination (principal); Z11.52 Encounter for screening for COVID-19; Z13.810 Encounter for screening for upper gastrointestinal disorder | CPT/HCPCS: C9803; U0003; U0005 ==

== ENCOUNTER 2021-01-06 08:49 | Day surgery (SDC) | payer MEDICARE, SELFPAY ==
[2020-12-30 15:31] VITALS: BMI 27.4
[2021-01-06] VITALS (8 sets, daily range): BP systolic 84–131; BP diastolic 47–75; PULSE 48–61; RESP 16–18; TEMP 36.4–36.7; O2SAT 94–100
[2021-01-06 09:22] LABS: POC Glucose,Bedside 149 (70-110)
--- NOTE | 2021-01-06 10:21 | P.PCN_ITS ---
[facility] Procedure Note Procedure Note:: Upper Endoscopy Procedure Report: Esophagogastroduodenoscopy with cold biopsies and TTS balloon dilation Endoscopost: Diego Grimaldo II, MD Referring Physician: Mateusz Estevez MD Date of Procedure: January 06, 2021 Equipment: Olympus GIF 190 standard upper endoscope Sedation: MAC sedation Indications: Mrs. Stallworth is a 75-year-old female who is here for diagnostic upper endoscopy secondary to dysphagia. 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 She has had a prior Schatzki's ring dilated and grade B reflux esophagitis. The patient stopped her PPI therapy. She was seen by Sully CASAREZ in mid October 2020. She was started back on omeprazole and most of her symptoms have resolved. She still gets some intermittent dysphagia. She does have belching, bloating and some gassiness. She also has some bowel irregularity. The patient had cholecystectomy in 1995. She has never had pancreatitis. Procedure: Prior to the procedure, a history and physical exam was performed, and patient's medications and allergies were reviewed. The risks, benefits and alternatives of the sedation and procedure were discussed with the patient. All questions were answered and informed consent was obtained. The patient was brought to the procedure room. Patient identification and proposed procedure were verified by the physician and the nurse. The patient was placed in a left lateral decubitus position and the scope was passed under direct vision. Throughout the procedure, the patient's blood pressure, pulse, and oxygen saturations were monitored continuously. The upper GI endoscopy was accomplished without difficulty. The patient tolerated the procedure well. Findings: The scope was passed directly into the upper esophagus and advanced to the third portion of the duodenum. The post bulbar duodenum and duodenal bulb were normal with normal mucosa and conniventes. There was minor scalloping of the duodenal conniventes so biopsies were obtained from the first portion of the duodenum. The scope was withdrawn through a normal duodenal bulb and pylorus into the stomach. There was bile reflux with linear reactive gastropathy of the antrum and body. The remainder of the fundus of the stomach was grossly normal. Upon retroflexion there was a very small sliding 1 to 2 cm hiatal hernia. 2 biopsies were taken in the antrum and along the lesser curvature for histology to rule out gastritis and/or H pylori. The scope was then withdrawn into the esophagus. There appeared to be a distal Schatzki's ring that was insignificant. There was no evidence of reflux esophagitis or Connelly's. There were tertiary contractions and evidence of moderate esophageal dysmotility. The entire esophagus was dilated to 60 Kyrgyz/20 mm with a TTS hydrostatic balloon. There was some resistance at the cricopharyngeus. The remainder of the esophageal mucosa was normal. Impression: 1. Nonerosive GERD with moderate esophageal dysmotility and very small sliding hiatal hernia 2. Cricopharyngeal spasm status post dilation to 20 mm 3. Insignificant Schatzki's ring 4. Bile reflux with linear reactive gastropathy 5. Mild duodenal scalloping of conniventes?rule out celiac disease Plan: I will follow-up the biopsies. I will obtain celiac serologies today. I would also consider patient doing sucrose C 13 breath testing. The patient is clinically improved and I would continue PPI therapy (omeprazole).
--- NOTE | 2021-01-06 12:14 | P.PN_ITS ---
[facility] Anesthesia Checklist - Patient Identification Patient Identification: Arm Band - Structural Data Admitted From: Home Planned Operative Procedure/s: EGD Consent for Planned Operative Procedure(s) Verified: Yes Verified Documents: Surgical Consent - NPO Status Verified Time NPO: 04:00 - Chart Verification Results Verified: None - Additional verifications Anesthesia Reactions: No Hx Blood Transfusions: No Blood Transfusion Reaction: No - Cardiovascular Assessment Heart Sounds: S1 & S2 Pulse Rhythm: Regular - Airway Assessment Dentition: Good Dentition - Neurological Assessment Level of Consciousness: Awake, Alert, Appropriate - Anesthesia Plan ASA Class: III Anesthesia Type: General [facility] History I have reviewed the patient's past medical history: Yes Medical History: Reports:: Diabetes Mellitus Type 2, Gastroesophageal Reflux Disease(GERD), Hyperlipidemia, Hypertension Denies:: Cancer, Chronic Obstructive Pulmonary Disease (COPD), Diabetes Mellitus Type 1, Internal Pacemaker, MRSA, Seizures *Have you ever received a pneumonia vaccine?: Yes *Have you received a flu vaccine this season?: Yes Other Medical History: Reports: Cataracts. Denies: Blood Transfusion Reaction Anesthesia experience/problems:: none Laterality Cases: Left: Arthroscopy Shoulder, Bilateral: Tonsillectomy Other Surgeries: Yes: Cardiac Surgery, Cholecystectomy, Tubal Ligation. No: Pacemaker Amputation: No Fractures: Yes (Right Foot Fracture 10 years ago ) - *Social History Last grade of school completed: High school graduate Smoking Status: Never smoker Alcohol Intake: never Alcohol Intake Frequency:: other Substance Use Type: denies use *Occupational Status:: retired Housing: house Household Members: spouse *Travel in the last 8 weeks: None Family Hx:: Cancer, Diabetes
[2021-01-07 15:31] LABS: Deamidated Gliadin Abs, IgA 3 units (0-19); Deamidated Gliadin Abs, IgG 2 units (0-19); Tissue Transglutaminase IgA Ab <2 U/mL (0-3); Tissue Transglutaminase IgG Ab <2 U/mL (0-5)
[2021-01-09 16:11] LABS: Endomysial IgA Antibody Negative (Negative)
[2021-01-11 07:22] LABS: Reticulin IgA Antibody Negative titer (Neg:<1:2.5)
== END 2021-01-06 11:32 | disposition home or self-care (01) ==
LOC: OUTP 08:52
PROVIDERS: PCP Family Medicine; Visit Provider Internal Medicine Gastroenterology
PROC: 0DJ08ZZ Inspection of Upper Intestinal Tract, Via Natural or Artificial Opening Endoscopic (ICD-10-PCS; CPT 43235; principal; 2021-01-06 10:00)
DX: K44.9 Diaphragmatic hernia without obstruction or gangrene (principal); J39.2 Other diseases of pharynx; K21.9 Gastro-esophageal reflux disease without esophagitis; K22.4 Dyskinesia of esophagus; K22.2 Esophageal obstruction; K31.9 Disease of stomach and duodenum, unspecified; Z87.19 Personal history of other diseases of the digestive system; Z90.49 Acquired absence of other specified parts of digestive tract; E11.9 Type 2 diabetes mellitus without complications; I10 Essential (primary) hypertension; E78.5 Hyperlipidemia, unspecified; Z80.9 Family history of malignant neoplasm, unspecified
CPT/HCPCS: 43239; 43249; 82962; 83516; 86255; 86256; 88305; C1726

== ENCOUNTER → 2021-01-26 09:28 | Outpatient (POV) | payer MEDICARE, SELFPAY | PROVIDERS: Visit Provider Audiologist | DX: Z00.00 Encounter for general adult medical examination without abnormal findings (principal) ==

== ENCOUNTER → 2021-05-02 08:49 | Outpatient (CLI) | payer MEDICARE, SELFPAY ==
[2021-05-02 09:42] LABS: Creatinine,Urine Random 117 mg/dL (Not Estab.)
[2021-05-02 09:45] LABS: Microalbumin/Creatinine Ratio 8.7
[2021-05-02 10:32] LABS: Alanine Aminotransferase 19 U/L (12-78); Albumin Level 4.5 g/dl (3.5-5.0); Albumin/Globulin Ratio 2.1 (1.1-1.8); Alkaline Phosphatase 41 U/L (38-126); Anion Gap 9.2 mEq/L (5-15); Aspartate Amino Transferase 29 U/L (14-36); Bilirubin,Total 0.9 mg/dl (0.2-1.3); Blood Urea Nitrogen 16 mg/dl (7-17); Calcium 9.7 mg/dl (8.4-10.2); Carbon Dioxide 31 mmol/L (22.0-30.0); Chloride 101 mmol/L (98-107); Chol/HDL Ratio 2.5 (1-3.5); Cholesterol 146 mg/dl (140-200); Estimated Glomerular Filt Rate 82 ml/min (>60); GFR (African American) 99 ML/MIN (>60); Globulin 2.1 g/dL (1.3-3.2); Glucose 146 mg/dl (74-100); HDL Cholesterol 58 mg/dl (40-60); Potassium 4.2 mmoL/L (3.5-5.1); Sodium 137 mmol/L (136-145); Total Protein,Serum 6.6 g/dl (6.3-8.2); Triglycerides 132 mg/dl (30-150); VLDL Cholesterol 26 mg/dL (0-40)
[2021-05-02 10:43] LABS: Direct LDL Cholesterol 63.96 mg/dL (100-129)
== END ==
PROVIDERS: PCP Family Medicine; Visit Provider Internal Medicine Endocrinology, Diabetes & Metabolism
DX: E11.59 Type 2 diabetes mellitus with other circulatory complications (principal); E11.69 Type 2 diabetes mellitus with other specified complication; I15.2 Hypertension secondary to endocrine disorders; E78.5 Hyperlipidemia, unspecified; Z79.84 Long term (current) use of oral hypoglycemic drugs
CPT/HCPCS: 36415; 80053; 80061; 82043; 82570; 83036

== ENCOUNTER → 2021-08-22 10:50 | Outpatient (CLI) | payer MEDICARE, SELFPAY ==
--- NOTE | 2021-08-22 10:54 | MM_ITS ---
PROCEDURE INFORMATION: Exam: MG Bilateral Screening 3D Mammography Exam date and time: 08/22/2021 10:49 AM Age: 76 years old Clinical indication: Screening examination. Her sister had breast cancer at age 60. TECHNIQUE: Imaging protocol: Bilateral Screening tomosynthesis and 2D mammography including computer-aided detection (CAD) when performed. COMPARISON: 1. MG MM DIG SCREENING MAMM BI W/CAD 08/19/2020 9:00 AM 2. MG MM DIG SCREENING MAMM BI W/CAD 06/01/2019 9:08 AM 3. MG SCBI MM Dig screening mamm BI w/CAD 04/18/2018 8:58 AM 4. MG DMSB DIG MAMM-SCREEN AGUST[place] W/CAD 05/16/2016 8:56 AM FINDINGS: MAMMOGRAPHY: Breast composition: The breasts are heterogeneously dense, which may obscure small masses. Mass: None. Architectural distortion: None. Calcifications: No suspicious calcifications. Asymmetric density: None. Skin thickening: None. Axillary adenopathy: None. IMPRESSION: No mammographic evidence of malignancy. Annual screening is recommended unless otherwise clinically indicated. ASSESSMENT: BI-RADS Category 1: Negative
== END ==
PROVIDERS: PCP Family Medicine; Visit Provider Family Medicine
DX: Z12.31 Encounter for screening mammogram for malignant neoplasm of breast (principal)
CPT/HCPCS: 77063; 77067

== ENCOUNTER → 2021-11-21 09:17 | Outpatient (CLI) | payer MEDICARE, SELFPAY ==
--- NOTE | 2021-11-21 09:20 | XR_ITS ---
FINAL REPORT TECHNIQUE: Bone mineral density was calculated of the lumbar spine and hip. CLINICAL HISTORY: .osteopenia FINDINGS: Using L1-4, the bone mineral density of the spine is 1.177 g/cm2, corresponding to T-score of 1.2. Using the right hip, the bone mineral density of the femoral neck is 0.690 g/cm2, corresponding to a T-score of -1.4. IMPRESSION: Normal bone mineral density of the lumbar spine with osteopenia of the proximal right femur. Lumbar spine measurements are likely falsely elevated secondary to hypertrophic change. FRAX data is not provided as patient was treated for osteoporosis. Reviewed, Interpreted and Dictated by Riley Dia III, MD Transcribed by Homero Rios Authenticated and . [facility]
== END ==
PROVIDERS: PCP Family Medicine; Visit Provider Family Medicine
DX: M85.89 Other specified disorders of bone density and structure, multiple sites (principal)
CPT/HCPCS: 77080

== ENCOUNTER 2022-03-06 13:15 | Outpatient (CLI) | payer MEDICARE, SELFPAY ==
[2022-03-06 13:24] VITALS: BMI 27.1
[2022-03-06 13:44] LABS: Albumin Level 4.4 g/dl (3.5-5.0)
[2022-03-06 13:46] LABS: Creatinine Clearance Estimated 58 mL/min (50-200); Estimated Glomerular Filt Rate 82 ml/min (>60); GFR (African American) 99 ML/MIN (>60)
[2022-03-06 13:47] LABS: Calcium 10.2 mg/dl (8.4-10.2)
[2022-03-06 14:34] VITALS: BP 142/49; PULSE 57; RESP 18; TEMP 36.3; O2SAT 99
[2022-03-06 14:41] VITALS: BP 147/51; PULSE 58; RESP 18; O2SAT 99
== END 2022-03-06 14:42 | disposition home or self-care (01) ==
PROVIDERS: PCP Family Medicine; Visit Provider Family Medicine
DX: M85.89 Other specified disorders of bone density and structure, multiple sites (principal)
CPT/HCPCS: 82040; 82310; 82565; 96374; J3489

== ENCOUNTER → 2022-04-03 09:30 | Outpatient (POV) | payer MEDICARE, SELFPAY | PROVIDERS: Visit Provider Dermatology | DX: Z00.00 Encounter for general adult medical examination without abnormal findings (principal) ==

== ENCOUNTER → 2022-08-21 10:28 | Outpatient (CLI) | payer MEDICARE, SELFPAY ==
--- NOTE | 2022-08-21 10:36 | XR_ITS ---
FINAL REPORT CLINICAL HISTORY: KNEE PAIN FINDINGS: RIGHT KNEE Three views demonstrate no acute fracture or dislocation. There is advanced patella femoral joint space narrowing. Moderate osteophytes are seen along the undersurface of the patella. Osteophytes are seen in the medial joint margin. No acute soft tissue abnormality is seen. IMPRESSION: Degenerative changes with no acute bony abnormality. Reviewed, Interpreted and Dictated by Porfirio Potter MD Transcribed by Christy Sandhu Authenticated and [facility]
--- NOTE | 2022-08-21 10:37 | XR_ITS ---
FINAL REPORT CLINICAL HISTORY: LOW BACK PAIN FINDINGS: LUMBAR SPINE Five views were obtained. There is no acute fracture. There is 30 degrees of lumbar scoliosis convex to the right. Advanced hypertrophic changes of degenerative disc disease are seen at L2-3, L3-4, and L5-S1. IMPRESSION: Degenerative changes with no acute bony abnormality. Reviewed, Interpreted and Dictated by Porfirio Potter MD Transcribed by Christy Sandhu Authenticated and [facility]
== END ==
PROVIDERS: PCP Family Medicine; Visit Provider Family Medicine
DX: M25.561 Pain in right knee (principal); M54.50 Low back pain, unspecified
CPT/HCPCS: 72110; 73562

== ENCOUNTER → 2022-08-23 09:55 | Outpatient (CLI) | payer MEDICARE, SELFPAY ==
--- NOTE | 2022-08-23 09:59 | MM_ITS ---
PROCEDURE INFORMATION: Exam: MG Bilateral Screening 3D Mammography Exam date and time: 08/23/2022 9:54 AM Age: 77 years old Clinical indication: Screening mammogram TECHNIQUE: Imaging protocol: Bilateral Screening tomosynthesis and 2D mammography including computer-aided detection (CAD) when performed. COMPARISON: 1. MG MM DIG SCREENING MAMM BI W/CAD 08/22/2021 10:49 AM 2. MG MM DIG SCREENING MAMM BI W/CAD 08/19/2020 9:00 AM 3. MG MM DIG SCREENING MAMM BI W/CAD 06/01/2019 9:08 AM 4. MG SCBI MM Dig screening mamm BI w/CAD 04/18/2018 8:58 AM FINDINGS: MAMMOGRAPHY: Breast composition: The breast is heterogeneously dense, which may obscure small masses. Mass: None. Architectural distortion: No new or suspicious architectural distortion. Calcifications: Stable benign-appearing calcifications are present. No new or suspicious cluster of microcalcifications have developed. Asymmetric density: No new or suspicious asymmetric density is present Skin thickening: None. Axillary adenopathy: None. IMPRESSION: No mammographic evidence of malignancy. Recommend annual screening mammography unless otherwise clinically indicated. ASSESSMENT: BI-RADS category 2: Benign
== END ==
PROVIDERS: PCP Family Medicine; Visit Provider Family Medicine
DX: Z12.31 Encounter for screening mammogram for malignant neoplasm of breast (principal)
CPT/HCPCS: 77063; 77067

== ENCOUNTER → 2022-11-09 09:15 | Outpatient (CLI) | payer MEDICARE, SELFPAY ==
[2022-11-09 10:05] LABS: Alanine Aminotransferase 23 U/L (12-78); Albumin Level 4.3 g/dl (3.5-5.0); Alkaline Phosphatase 59 U/L (38-126); Anion Gap 7.5 mEq/L (5-15); Aspartate Amino Transferase 31 U/L (14-36); Bilirubin,Total 0.7 mg/dl (0.2-1.3); Blood Urea Nitrogen 17 mg/dl (7-17); Calcium 9.4 mg/dl (8.4-10.2); Carbon Dioxide 31 mmol/L (22.0-30.0); Chloride 105 mmol/L (98-107); Cholesterol 147 mg/dl (140-200); Estimated Glomerular Filt Rate 81 ml/min (>60); GFR (African American) 98 ML/MIN (>60); Globulin 2.2 g/dL (1.3-3.2); Glucose 124 mg/dl (74-100); HDL Cholesterol 74 mg/dl (40-60); Potassium 4.5 mmoL/L (3.5-5.1); Sodium 139 mmol/L (136-145); Total Protein,Serum 6.5 g/dl (6.3-8.2); Triglycerides 111 mg/dl (30-150); VLDL Cholesterol 22 mg/dL (0-40)
[2022-11-09 10:07] LABS: Microalbumin/Creatinine Ratio 14.8
[2022-11-09 10:16] LABS: Creatinine,Urine Random 70 mg/dL (Not Estab.); Hemoglobin A1C 7.2 % (4.0-6.0)
[2022-11-09 10:17] LABS: Direct LDL Cholesterol 61.15 mg/dL (100-129)
[2022-11-09 10:23] LABS: 25-OH Vitamin D, Total 56.5 ng/mL (30-100); Free T4 (Free Thyroxine) 1.05 ng/dl (0.78-2.19)
[2022-11-09 10:36] LABS: Thyroid Stimulating Hormone 2.35 uIU/mL (0.465-4.68)
[2022-11-09 10:56] LABS: Vitamin B12 878 pg/mL (239-931)
[2022-11-10 09:14] LABS: Triiodothyronine (T3) Free 2.3 pg/mL (2.0-4.4)
== END ==
PROVIDERS: PCP Family Medicine; Visit Provider Internal Medicine Endocrinology, Diabetes & Metabolism
DX: E11.9 Type 2 diabetes mellitus without complications (principal); E55.9 Vitamin D deficiency, unspecified; E53.8 Deficiency of other specified B group vitamins; Z79.84 Long term (current) use of oral hypoglycemic drugs
CPT/HCPCS: 80053; 80061; 82043; 82306; 82570; 82607; 83036; 84439; 84443; 84481

== ENCOUNTER → 2023-01-11 15:38 | Outpatient (CLI) | payer MEDICARE, SELFPAY ==
--- NOTE | 2023-01-11 15:41 | XR_ITS ---
FINAL REPORT CLINICAL HISTORY: Right foot pain FINDINGS: RIGHT FOOT Three views demonstrate no acute fracture or dislocation. There are mild to moderate hypertrophic changes of the first metatarsophalangeal joint. There is a moderate plantar spur. There are hypertrophic changes at the intertarsal joints. There is soft tissue swelling over the dorsum of the foot. 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 Reviewed, Interpreted and Dictated by Porfirio Potter MD Transcribed by Christy Sandhu Authenticated and [facility]
--- NOTE | 2023-01-11 15:41 | XR_ITS ---
FINAL REPORT CLINICAL HISTORY: Left foot pain FINDINGS: LEFT FOOT Three views demonstrate no acute fracture or dislocation. There are mild to moderate hypertrophic changes of the first metatarsophalangeal joint. There is a moderate plantar spur. There are hypertrophic changes at the intertarsal joints. There is soft tissue swelling over the dorsum of the foot. 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 Reviewed, Interpreted and Dictated by Porfirio Potter MD Transcribed by Christy Sandhu Authenticated and [facility]
== END ==
PROVIDERS: PCP Family Medicine; Visit Provider Podiatrist
DX: M79.671 Pain in right foot (principal); M79.672 Pain in left foot
CPT/HCPCS: 73630

== ENCOUNTER 2023-05-01 09:00 | Outpatient (RCR) | payer MEDICARE, SELFPAY ==
--- NOTE | 2023-05-01 10:11 | HMH.RHREAS ---
Rehab Reassessment Rehab OP Re-assessment Start: 04/02/23 17:45 Freq: Status: Active Protocol: Document 05/01/23 09:51 JENNIFER (Rec: 05/01/23 10:02 JENNIFER [id number]) E-signed By Ciro Mcintyre, PT Tinetti Sitting Balance Sitting Balance Steady, safe Arising from Chair Ability to Arise Able, w/o using arms Standing Balance Immediate Standing Balance Steady w/o support Standing Balance Steady, wide stance Nudged Response Steady Standing with Eyes Closed Steady Turning Step Pattern Turning 360 Degrees Continuous steps Stability Turning 360 Degrees Steady Sitting Down Sitting Down Uses arms or unsteady Gait and Step Initiation of Gait No hesitancy Right Foot Step Length Does pass stance foot Right Foot Step Height Completely clears floor Left Foot Step Length Does pass stance foot Left Foot Step Height Completely clears floor Step Description Step Symmetry Step length appears equal Step Continuity Steps appear continuous Gait Description Path Description Straight Trunk Description No sway Walking Stance Heels together Scoring and Interpretation Tinetti Composite Score (points) 24 Interpretation of Scores Low risk for falls (>24) Rehab Re-assessment Subjective Subjective Patient reports 80% improvement since start of care. Objective Objective Notes AROM: WNL except for EV R 7 L 12 MMT: R WNL L DF/PF WNL INV/EV 4+/5 Neuro: WNL Pain: 2/10 at worst over past week Assessment Progress Assessment Progressing as Expected Assessment Notes PT suggest patient is good to DC. Patient was agreeable. Patient to continue with HEP. Patient goals met All except for ROM/MMT. Goals Not Met ROM;MMT Revised Goals NA Plan Plan Patient to continue with HEP. Time and Billing Re-Eval Time 15 Re-Eval Billing Units 1 PHYSICIAN CERTIFICATION: I certify the specified therapy services for Halley Stallworth are required, authorized, and reviewed every 30 days.
== END 2023-05-01 10:15 | disposition home or self-care (01) ==
LOC: PT 09:00
PROVIDERS: PCP Family Medicine; Visit Provider Podiatrist
DX: R26.2 Difficulty in walking, not elsewhere classified (principal); M79.671 Pain in right foot; M79.672 Pain in left foot
CPT/HCPCS: 97110; 97112; 97163; 97164; 97530

== ENCOUNTER 2023-05-09 08:23 | Outpatient (CLI) | payer MEDICARE, SELFPAY ==
[2023-05-09 09:28] LABS: Creatinine,Urine Random 67 mg/dL (Not Estab.)
[2023-05-09 09:32] LABS: Microalbumin/Creatinine Ratio 10.7
[2023-05-09 09:35] LABS: Alanine Aminotransferase 19 U/L (12-78); Albumin Level 4.2 g/dl (3.5-5.0); Alkaline Phosphatase 53 U/L (38-126); Anion Gap 8.6 mEq/L (5-15); Aspartate Amino Transferase 26 U/L (14-36); Bilirubin,Total 0.6 mg/dl (0.2-1.3); Blood Urea Nitrogen 18 mg/dl (7-17); Carbon Dioxide 31 mmol/L (22.0-30.0); Chloride 105 mmol/L (98-107); Chol/HDL Ratio 2.9 (1-3.5); Cholesterol 135 mg/dl (140-200); Estimated Glomerular Filt Rate 81 ml/min (>60); GFR (African American) 98 ML/MIN (>60); Globulin 2.1 g/dL (1.3-3.2); Glucose 150 mg/dl (74-100); HDL Cholesterol 47 mg/dl (40-60); Potassium 4.6 mmoL/L (3.5-5.1); Sodium 140 mmol/L (136-145); Total Protein,Serum 6.3 g/dl (6.3-8.2); Triglycerides 104 mg/dl (30-150); VLDL Cholesterol 21 mg/dL (0-40)
[2023-05-09 09:46] LABS: Direct LDL Cholesterol 66.02 mg/dL (100-129)
[2023-05-09 09:50] LABS: 25-OH Vitamin D, Total 59.9 ng/mL (30-100)
[2023-05-09 11:02] LABS: Vitamin B12 > 1000 pg/mL (239-931)
[2023-05-09 11:54] LABS: Hemoglobin A1C 7.5 % (4.0-6.0)
== END 2023-05-09 23:59 ==
LOC: LAB 08:23
PROVIDERS: PCP Family Medicine; Visit Provider Internal Medicine Endocrinology, Diabetes & Metabolism
DX: E11.9 Type 2 diabetes mellitus without complications (principal); E11.59 Type 2 diabetes mellitus with other circulatory complications; E11.69 Type 2 diabetes mellitus with other specified complication; I15.2 Hypertension secondary to endocrine disorders; E55.9 Vitamin D deficiency, unspecified; E78.5 Hyperlipidemia, unspecified; E53.8 Deficiency of other specified B group vitamins; Z79.84 Long term (current) use of oral hypoglycemic drugs
CPT/HCPCS: 36415; 80053; 80061; 82043; 82306; 82570; 82607; 83036

== ENCOUNTER 2023-09-11 08:21 | Outpatient (CLI) | payer MEDICARE, SELFPAY ==
--- NOTE | 2023-09-11 08:27 | MM_ITS ---
PROCEDURE INFORMATION: Exam: MG Bilateral Screening 3D Mammography Exam date and time: 09/11/2023 8:22 AM Age: 78 years old Clinical indication: Screening examination TECHNIQUE: Imaging protocol: Bilateral Screening tomosynthesis and 2D mammography including computer-aided detection (CAD) when performed. COMPARISON: 1. MG MM DIG SCREENING MAMM BI W/CAD 08/23/2022 9:54 AM 2. MG MM DIG SCREENING MAMM BI W/CAD 08/22/2021 10:49 AM FINDINGS: MAMMOGRAPHY: Breast composition: The breasts are heterogeneously dense, which may obscure small masses. Mass: None. Architectural distortion: None. Calcifications: No suspicious calcifications. Asymmetric density: None. Skin thickening: None. Axillary adenopathy: None. IMPRESSION: No mammographic evidence of malignancy. Annual screening is recommended unless otherwise clinically indicated. ASSESSMENT: BI-RADS Category 1: Negative
== END 2023-09-11 23:59 | disposition home or self-care (01) ==
LOC: RAD 08:22
PROVIDERS: PCP Family Medicine; Visit Provider Family Medicine
DX: Z12.31 Encounter for screening mammogram for malignant neoplasm of breast (principal)
CPT/HCPCS: 77063; 77067

== ENCOUNTER 2023-10-23 08:48 | Outpatient (CLI) | payer MEDICARE, SELFPAY ==
--- NOTE | 2023-10-23 08:55 | XR_ITS ---
FINAL REPORT TECHNIQUE: Bone mineral density was calculated of the lumbar spine and hip. CLINICAL HISTORY: osteopenia COMPARISON: 11/21/2021 FINDINGS: Using L1-4, the bone mineral density of the spine is 1.202 g/cm2, corresponding to T-score of 1.4. Using the right hip, the bone mineral density of the femoral neck is 0.690 g/cm2, corresponding to a T-score of -1.4. Using the left hip the bone mineral density of the femoral neck is 0.751 g/cm?, corresponding to a T-score of -1.4. NOTE: T-score: Standard deviation compared with peak bone mass of young adult mean. *Following the recommendations of the International Society of Bone densitometry, classification of hip BMD is based on the lower of two T-scores; total hip or femoral neck. IMPRESSION: Diminished bone mineral density of the hips bilaterally, consistent with low bone density. Normal bone mineral density of the lumbar spine, although this is likely falsely elevated secondary to bony sclerosis. Reviewed, Interpreted and Dictated by Riley Dia III, MD Transcribed by Tigist Mccall Authenticated and . [facility]
== END 2023-10-23 23:59 | disposition home or self-care (01) ==
LOC: RAD 08:50
PROVIDERS: PCP Family Medicine; Visit Provider Family Medicine
DX: Z13.820 Encounter for screening for osteoporosis; M85.89 Other specified disorders of bone density and structure, multiple sites
CPT/HCPCS: 77080

== ENCOUNTER 2023-11-05 09:35 | Outpatient (CLI) | payer MEDICARE, SELFPAY ==
[2023-11-05 10:48] LABS: Chloride 106 mmol/L (98-107); Potassium 4.5 mmoL/L (3.5-5.1); Sodium 139 mmol/L (136-145)
[2023-11-05 10:50] LABS: Alanine Aminotransferase 27 U/L (12-78); Aspartate Amino Transferase 29 U/L (14-36); Blood Urea Nitrogen 21 mg/dl (7-17); Estimated Glomerular Filt Rate 81 ml/min (>60); GFR (African American) 98 ML/MIN (>60)
[2023-11-05 10:51] LABS: Albumin Level 4.3 g/dl (3.5-5.0); Albumin/Globulin Ratio 1.9 (1.1-1.8); Alkaline Phosphatase 65 U/L (38-126); Anion Gap 11.5 mEq/L (5-15); Bilirubin,Total 0.8 mg/dl (0.2-1.3); Calcium 9.9 mg/dl (8.4-10.2); Carbon Dioxide 26 mmol/L (22.0-30.0); Chol/HDL Ratio 2.4 (1-3.5); Cholesterol 165 mg/dl (140-200); Globulin 2.3 g/dL (1.3-3.2); Glucose 211 mg/dl (74-100); HDL Cholesterol 70 mg/dl (40-60); Total Protein,Serum 6.6 g/dl (6.3-8.2); Triglycerides 105 mg/dl (30-150); VLDL Cholesterol 21 mg/dL (0-40)
[2023-11-05 11:02] LABS: Direct LDL Cholesterol 65.82 mg/dL (100-129)
[2023-11-05 11:12] LABS: Microalbumin/Creatinine Ratio 12.2
[2023-11-05 11:14] LABS: Creatinine,Urine Random 103 mg/dL (Not Estab.)
[2023-11-05 11:21] LABS: Thyroid Stimulating Hormone 2.87 uIU/mL (0.465-4.68)
[2023-11-05 11:45] LABS: Hemoglobin A1C 7.8 % (4.0-6.0)
[2023-11-05 11:59] LABS: 25-OH Vitamin D, Total 49.9 ng/mL (30-100)
[2023-11-05 12:32] LABS: Vitamin B12 953 pg/mL (239-931)
== END 2023-11-05 23:59 | disposition home or self-care (01) ==
PROVIDERS: PCP Family Medicine; Visit Provider Family Medicine
DX: E11.9 Type 2 diabetes mellitus without complications (principal); E55.9 Vitamin D deficiency, unspecified; E11.59 Type 2 diabetes mellitus with other circulatory complications; I15.2 Hypertension secondary to endocrine disorders; E11.69 Type 2 diabetes mellitus with other specified complication; E78.5 Hyperlipidemia, unspecified; E53.8 Deficiency of other specified B group vitamins; E78.2 Mixed hyperlipidemia; I10 Essential (primary) hypertension
CPT/HCPCS: 36415; 80053; 80061; 82043; 82306; 82570; 82607; 83036; 84443

== ENCOUNTER 2024-03-03 13:51 | Outpatient (CLI) | payer MEDICARE, SELFPAY ==
--- OUTSIDE RECORDS SUMMARY | 2024-03-03 13:53 | XMS_ITS ---
[facility] Address [address] [place] [id number] Care Team Providers Care Tool Programmer Name Role Phone Jose Alfredo Estevezian Primary Care Provider ALLERGIES No Known Allergies REASON FOR VISIT 6 months MEDICATIONS Medication SIG (Take, Route, Frequency, Duration) Notes Start Date End Date Status Pravastatin Sodium 40 MG 1 tab(s) orally once a day for 90 days Active Gemtesa 75 MG TAKE ONE TABLET BY M OUTH ONCE A DAY Active Celecoxib 100 MG 1 capsule Orally Onc e a day for 90 days Active Sucralfate 1 GM/10ML 2 mL with every meal Orally 0 12/09/2023 Active Colesevelam HCl 625 MG 2 tab(s) orally 2 times a day for 90 days Active Ramipril 2.5 MG 1 cap(s) orally 2 ti mes a day Active Vitamin B-12 1000 MCG 1 tab(s) orally Once a day 0 09/20/2010 Active Vitamin D3 50 MCG (2000 UT) 2 cap(s) orally once a day 09/24/2012 A ctive oxyBUTYnin Chloride ER 10 MG TAKE TWO TABLETS BY MOUTH ONCE A DAY Active [id number] Ethyl Esters 1 GM TAKE 4 CAPSULES BY MOUTH ONCE A DAY Orally Active Estradiol 0.1 MG/GM as directed intravag inally once daily at night Active Metoprolol Tartrate 25 MG 1/2 tab(s) ora lly 2 times a day Active metFORMIN HCl 1000 MG 1 tab orally twice daily Active Aspirin 81 MG 1 tab(s) orally once a day for 30 day(s) Active Glimepiride 4 MG 1 tab orally twice daily Active CoQ10 100 MG 1 cap(s) orally once a day Active [facility] - 1 cap(s) orally once a day Active Jardiance 25 MG 1 tab(s) orally once a day (in the morning) Active Jobst 30-40mmHg Compression Sm DIRECTED 07/25/2016 Active Contour Test - 2 times a day 01/20/2016 Active Reclast 5 MG/100ML 5 mg intravenously e very other year 01/26/2016 Active Multiple Vitamin - 1 cap(s) orally once daily Active Calcium + Vitamin D3 600-5 MG-MCG 1 tablet with a meal Orally Once a day for 30 day(s) Active Lantus SoloStar 100 UNIT/ML 8 units Subcutaneous once daily Active MiraLax - DIRECTED ORALLY O NCE A DAY for 7 DAY(S) Active Omeprazole 10 MG 1 cap(s) orally once a day for 90 days Active IMMUNIZATIONS Vaccine Route Administration Date Status Comme nts Fluzone High Dose (65yr and older) IM Intramuscular 02/24/2024 Administered VITAL SIGNS Weight 169.2 lbs 02/24/2024 Blood pressure systolic 130 mm Hg 02/24/20 24 Blood pressure diastolic 72 mm Hg 024 Heart Rate 68 /min 02/24/2024 Height 66.75 in 02/24/2024 BMI 26.70 kg/m2 02/24/2024 Encounters Encounter Location Date Provider Diagnosis [facility] [address] [phone] 02/24/2024 Mateusz Estevez Essential hypertensi on I10 ; Gastroesophageal reflux disease, esophagitis presence not specified K21.9 ; Osteopenia with high risk of fracture M85.80 and Encounter for immunization Z23 ASSESSMENTS Encounter Date Diagnosis Assessment Notes Treatment Notes Treatment Clinical Notes 02/24/2024 Essential hypertensi on (ICD-10 - I10) 02/24/2024 Gastroesophageal ref lux disease, esophagitis presence not specified (ICD-10 - K21.9) 02/24/2024 Osteopenia with high risk of fracture (ICD-10 - M85.80) 02/24/2024 Encounter for immunization (ICD-10 - Z23) PLAN OF TREATMENT Medication Medication Name Sig Start Date Stop Date Notes Ramipril 2.5 MG 1 cap(s) orally 2 times a day Metoprolol Tartrate 25 MG 1/2 tab(s) orally 2 times a day Reclast 5 MG/100ML 5 mg intravenously e very other year 01/26/2016 Omeprazole 10 MG 1 cap(s) orally once a day for 90 days Next Appt Details Follow Up: 6 Months, Reason: Provider Name:Mateusz akins, 08/24/2024 09:00:00 AM, [address] [facility] [address] [facility], [address], [place], [place], [phone], Progress Notes * Examination Category Sub-Category Detail Notes Endocrinology HEENT: unremarkable Heart: RSR Lungs: clear to auscultatio n Extremities: no leg edema General Appearance: NAD, using a cane to assist with ambulation Skin: normal, no rash History and Physical Notes * HPI (History of Present Illness) Category Sub-Category Detail Notes Endocrinology Recent Blood Sugars Pt here to f /u on DM 2. Pt states she saw endo on 02/19 and her A1C was 7.2% Cardiology Blood Pressure Elevated Pt here for 6 mo f/u on hypertension, states she is doing well and does not have any concerns Hyperlipidemia Pt is fasting today
--- OUTSIDE RECORDS SUMMARY | 2024-03-03 13:53 | XMS_ITS ---
Author Organization [facility] Address [address] [facility] [address] [place] [phone] Care Team Providers Care Vascular Ultrasound Technician Name Role Phone Mateusz Estevez Primary Care Provider REASON FOR VISIT pa reclast MEDICATIONS Medication SIG (Take, Route, Fr equency, Duration) Notes Start Date End Date Status Reclast 5 MG/100ML 5 mg intravenously e very other year 01/26/2016 Active Encounters Encounter Location Date Provider Diagnosis [facility] [address] [facility] [address] [place] [phone] 02/24/2024 Mateusz Estevez Osteopenia with high risk of fracture M85.80 ASSESSMENTS Encounter Date Diagnosis Assessment Notes Treatment Notes Treatment Clinical Notes 02/24/2024 Osteopenia with high risk of fracture (ICD-10 - M85.80) PLAN OF TREATMENT Medication Medication Name Sig Start Date Stop Date Notes Reclast 5 MG/100ML 5 mg intravenously every other year 09/2015 Next Appt Details Provider Name:Mateusz Rogers ry, 08/24/2024 09:00:00 AM, [address] [facility], [address], [place], [phone],
--- OUTSIDE RECORDS SUMMARY | 2024-03-03 13:53 | XMS_ITS ---
Author Organization [facility] Address [address] [facility] [address] [place] [id number] Care Team Providers Care Animal Doctor Name Role Phone Mateusz Estevez Primary Care Provider [phone] REASON FOR VISIT message Encounters Encounter Location Date Provider Diagnosis [facility] [address] [facility] [address] [place] [phone] 02/24/2024 Mateusz Estevez PLAN OF TREATMENT Next Appt Details Provider Name:Mateusz Rogers ry, 08/24/2024 09:00:00 AM, [address], [address], [place], [phone],
--- OUTSIDE RECORDS SUMMARY | 2024-03-03 13:54 | XMS_ITS ---
Author Organization [facility] Address [address] [place] [address] Phone Care Team Providers Care Manuscript Reader Name Role Phone Mia ALFRED, Stiven Hallman Unavailable + [phone] KYA MOJICA Primary Care Provider [phone] Problems Includes: Active, inactive, and resolved Problems All Visits Onset Date Resolved Date Provider Condition S tatus Joint Pain in the Right Knee 09/02/2023 Gonzalo Hall PA-C Active Last Documented On 4 10:38AM ; [facility] Joint Pain Fingers of Left Hand 01/31/2017 Salomon Sanders MD Active Last Documented On 7 10:15AM ; [facility] Note: Trigger finger Pain in Right Upper Arm Only Near the Shoulder 10/03/2015 Maurisio Izquierdo MD Active Last Documented On 6 12:57PM ; [facility] Plan of Treatment Findings Encounter Date Patient screened for future fall risk: documentation of any fall with injury in past year Physician Specified with Gonzalo Hall PA-C 09/02/2023 Last Documented On 4 9:34AM ; [facility] Future Appointments Date Time Location Provi na Follow Up 03/05/2024 1:15PM [facility] Gavino Poe PA-C Last Documented On 4 9:31AM ; [facility] Instructions to patient Lose weight Last Documented On 4 10:40AM ; [facility] Instructions for patient co nsult pcp for bp Last Documented On 7 10:16AM ; [facility] Lose weight Last Documented On 7 10:16AM ; [facility] Instructions for patient con sult pcp for bp Last Documented On 7 10:16AM ; [facility] Lose weight Last Documented On 7 10:16AM ; [facility] Instructions for patient con sult pcp for bp Last Documented On 6 1:51PM ; [facility] Lose weight Last Documented On 6 1:51PM ; [facility] Instructions for patient con sult pcp for bp Last Documented On 6 10:05AM ; [facility] Lose weight Last Documented On 6 10:05AM ; [facility] Instructions for patient con sult pcp for bp Last Documented On 6 10:32AM ; [facility] Lose weight Last Documented On 6 10:32AM ; [facility] Instructions for patient con sult pcp for bp Last Documented On 6 1:58PM ; [facility] Lose weight Last Documented On 6 1:58PM ; [facility] Instructions for patient con sult pcp for bp Last Documented On 6 1:33PM ; [facility] Lose weight Last Documented On 6 1:33PM ; [facility] Instructions for patient con sult pcp for bp Last Documented On 6 11:30AM ; [facility] Lose weight Last Documented On 6 11:31AM ; [facility] Instructions for patient Last Documented On 6 1:06PM ; [facility] Assessments Includes: Assessments for all patient encounters Findings Encounter Date Overweight Physician Specified with Gonzalo Hall PA-C 09/02/2023 Last Documented On 4 9:34AM ; [facility] Instructions Includes: Instructions for all patient encounters Instructions to patient Lose weight Last Documented On 4 10:40AM ; [facility] Instructions for patient con sult pcp for bp Last Documented On 7 10:16AM ; [facility] Lose weight Last Documented On 7 10:16AM ; [facility] Instructions for patient con sult pcp for bp Last Documented On 7 10:16AM ; [facility] Lose weight Last Documented On 7 10:16AM ; [facility] Instructions for patient con sult pcp for bp Last Documented On 6 1:51PM ; [facility] Lose weight Last Documented On 6 1:51PM ; [facility] Instructions for patient con sult pcp for bp Last Documented On 6 10:05AM ; [facility] Lose weight Last Documented On 6 10:05AM ; [facility] Instructions for patient con sult pcp for bp Last Documented On 6 10:32AM ; [facility] Lose weight Last Documented On 6 10:32AM ; [facility] Instructions for patient con sult pcp for bp Last Documented On 6 1:58PM ; [facility] Lose weight Last Documented On 6 1:58PM ; [facility] Instructions for patient con sult pcp for bp Last Documented On 6 1:33PM ; [facility] Lose weight Last Documented On 6 1:33PM ; [facility] Instructions for patient con sult pcp for bp Last Documented On 6 11:30AM ; [facility] Lose weight Last Documented On 6 11:31AM ; [facility] Instructions for patient Last Documented On 6 1:06PM ; [facility] Medical Equipment - Implanted Devices Includes: Current and historical Devices No Medical Equipment Recorded Medications Includes: Current and historical Medications Current Medications (continue as prescribed) Ramipril 5 MG Capsule 10/03/2015 Provider: Diagnosis: Last Documented On 6 12:58PM By Laxmi Hoover ; [facility] Metoprolol Succinate ER 25 MG Tablet Extended Re lease 24 Hour 10/03/2015 Provider: Diagnosis: Last Documented On 6 12:59PM By Laxmi Hoover ; [facility] Pravastatin Sodium 10 MG Tablet 10/03/2015 Provider: Diagnosis: Last Documented On 6 12:59PM By Laxmi Hoover ; [facility] Ecotrin Low Strength 81 MG Tablet Delayed Release 09/20 Provider: Diagnosis: Last Documented On 6 12:59PM By Laxmi Hoover ; [facility] EQL Vitamin D Gummies Child 400 UNIT Tablet Chewable 0 10/03/2015 Provider: Diagnosis: Last Documented On 6 1:00PM By Laxmi Hoover ; [facility] Co Q 10 10 MG Capsule 10/03/2015 Provider: Diagnosis: Last Documented On 6 1:00PM By Laxmi Hoover ; [facility] Oscal 500/200 D-3 500-200 MG-UNIT Tablet 10/03/2015 Provider: Diagnosis: Last Documented On 6 1:00PM By Laxmi Hoover ; [facility] ChoiceFul Multivitamin Capsule 10/03/2015 Provider: Diagnosis: Last Documented On 6 1:01PM By Laxmi Hoover ; [facility] Percocet 5-325 MG Tablet 10/03/2015 Provider: Diagnosis: Last Documented On 6 1:01PM By Laxmi Hoover ; [facility] Welchol 625 MG Tablet 10/03/2015 Provider: Diagnosis: Last Documented On 6 1:01PM By Laxmi Hoover ; [facility] SM Vitamin B12 TR 1000 MCG Tablet Extended Release Provider: Diagnosis: Last Documented On 6 12:58PM By Laxmi Hoover ; [facility] Januvia 25 MG Tablet 10/03/2015 Provider: Diagnosis: Last Documented On 6 12:58PM By Laxmi Hoover ; [facility] Actos 15 MG Tablet 10/03/2015 Provider: Diagnosis: Last Documented On 6 12:58PM By Laxmi Hoover ; [facility] GlyBURIDE-MetFORMIN 1.25-250 MG Tablet 10/03/2015 Pr ovider: Diagnosis: Last Documented On 6 12:57PM By Laxmi Hoover ; [facility] CO-Q 10 [place]-3 Fish Oil Capsule 10/03/2015 Provider : Diagnosis: Last Documented On 6 12:57PM By Laxmi Hoover ; [facility] Past Medications on file Cyclobenzaprine HCl 5 MG Tablet 05/21/2016 - 06/20/2016 Provider: Maurisio thomas MD Diagnosis: three times a day Last Documented On 7 9:38AM By Rohan Green ; [facility] Cyclobenzaprine HCl 5 MG Tablet 04/04/2016 - 05/04/2016 Provider: Maurisio thomas MD Diagnosis: three times a day Last Documented On 6 11:13AM By Elysia Schroeder ; [facility] Percocet 5-325 MG Tablet 11/25/2015 - 12/05/2015 Provider: Maurisio Izquierdo MD Diagnosis: Displaced commin uted fx shaft of humerus, right arm, init 1-2 po q 4-6h prn pain Last Documented On 6 9:40AM By Laxmi Hoover ; [facility] Bactrim DS 800-160 MG Tablet 10/11/2015 - 10/18/2015 Provider: Maurisio thomas MD Diagnosis: Displ commnt fx shaft of humer, r arm, 7thD twice a day Last Documented On 6 11:32AM By Laxmi Hoover ; [facility] Percocet 5-325 MG Tablet 10/05/2015 - 10/15/2015 Provider: Maurisio Izquierdo MD Diagnosis: Displaced commin uted fx shaft of humerus, right arm, init 1-2 po q 4-6h prn pain Last Documented On 6 1:30PM By Laxmi Hoover ; [facility] Medications Administered Includes: Administered Medications in patient's chart No Administered Medications Recorded Vital Signs Includes: Vital Signs from 03/03/2023 through 03/03/2024 Vital Name 09/02/2023 10:40A Height (in) 65 Weight (lb) 163 Body Mass Index 27.1 Body Surface Area 1.8 Note: ab Last Documented: On 09/02/2023 10:40A M ; [facility] Results Includes: Results from 03/03/2023 through 03/03/2024 No Results Recorded For Specified Dates History of Present Illness History of Present Illness not supported for this document type No History of Present Illness Recorded Social History Description Last Updated No recent change in diet 09/02/2023 Last Documented On 4 9:34AM ; [facility] Not a current smoker. 09/02/2023 Last Documented On 4 9:34AM ; [facility] Not using alcohol 09/02/2023 Last Documented On 4 9:34AM ; [facility] Not using drugs 09/02/2023 Last Documented On 4 9:34AM ; [facility] Smoking status : Never smoker 10/26/2015 Last Documented On 6 2:14PM ; [facility] No tobacco use 10/05/2015 Last Documented On 6 3:00PM ; [facility] Caffeine use 10/03/2015 Last Documented On 6 10:34AM ; [facility] Not a current smoker 10/03/2015 Last Documented On 6 10:34AM ; [facility] Not exercising regularly 10/03/2015 Last Documented On 6 10:34AM ; [facility] Recent change in diet 10/03/2015 Last Documented On 6 10:34AM ; [facility] Procedures and Surgical History Includes: Procedures from 03/03/2023 through 03/03/2024 Procedures Code Diagnosis Performing Provider Service Location Service Date Triamcinolone/Ke nalog, 10mg per cc [id number] Unilateral primary osteoarthritis, right knee Gavino Poe PA-C [facility] 01/22/2024 Last Documented On 4 8:54AM ; [facility] DRAIN/INJECT, JOINT/BURSA (RIGHT) Unilateral primary osteoarthritis, right knee Gavino Deepika [facility] 01/22/2024 Last Documented On 4 8:54AM ; [facility] Triamcinolone/Kenalog, 10mg per cc [id number] Unilateral primary osteoarthritis, right knee Gavino Deepika [facility] 10/16/2023 Last Documented On 4 10:53AM ; [facility] DRAIN/INJECT, JOINT/BURSA (RIGHT) Unilateral primary osteoarthritis, right knee Gavino Deepika [facility] 10/16/2023 Last Documented On 4 10:53AM ; [facility] X-RAY EXAM KNEE 4 OR MORE (RIGHT) [id number] Unilateral primary osteoarthritis, right knee Gonzalo Hall PA-C [facility] 09/02/2023 Last Documented On 4 6:44PM ; [facility] DRAIN/INJECT, JOINT/BURSA (RIGHT) Unilateral primary osteoarthritis, right knee Gonzalo Hall PA-C [facility] 09/02/2023 Last Documented On 4 6:44PM ; [facility] Surgical History Last Updated History of heart surgery 10/03/2015 Last Documented On 6 10:34AM ; [facility] History of hernia repair 10/03/2015 Last Documented On 6 10:34AM ; [facility] Medical History Includes: Medical History in patient's chart Description Last Updated History of Hypertension 09/02/2023 Last Documented On 4 9:34AM ; [facility] A recent immunization for pneumococcal p neumonia 03/06/2015 10/03/2015 Last Documented On 6 10:34AM ; [facility] Arthritic joint problems 10/03/2015 Last Documented On 6 10:34AM ; [facility] Gallbladder disease 10/03/2015 Last Documented On 6 10:34AM ; [facility] History of diabetes mellitus 10/03/2015 Last Documented On 6 10:34AM ; [facility] Intermittent hypertension 10/03/2015 Last Documented On 6 10:34AM ; [facility] Family History Includes: Family History in patient's chart Description Last Updated Family history of cancer mother, father, sister 10/03/2015 Last Documented On 6 10:34AM ; [facility] Family history of diabetes mellitus moth er, father, brother, sister 10/03/2015 Last Documented On 6 10:34AM ; [facility] Family history of hypertension mother, f ather 10/03/2015 Last Documented On 6 10:34AM ; [facility] Paternal history of family history of he art disease father 10/03/2015 Last Documented On 6 10:34AM ; [facility] Review of Systems Review of Systems not supported for this document type No Review of Systems Recorded Mental Status No Mental Status Recorded Functional Status No Functional Status Recorded Physical Exam Physical Exam not supported for this document type No Physical Exam Recorded Immunizations Includes: Immunizations in patient's chart Vaccine Dose # Date Site Reaction(s) Status Source PCV (Pneumovax 23) 1 01/03/2016 Complete ( Reported) Patient Last Documented On 6 1:58PM ; [facility] Allergies Includes: Active, inactive, and resolved Allergies No Known Allergies Encounters Includes: Encounters from 03/03/2023 through 03/03/2024 Encounter Provider Location Date Check-In Time Check-Out Time Diagnosis INJECTION Gavino Poe PA-C [facility] 01/22/20 24 8:53AM 9:25AM INJECTION Gavino Poe PA-C [facility] 10/16/19 24 10:38AM 11:01AM Physician Specified Gonzalo Hall PA-C [facility] 09/02/19 24 10:04AM 11:17AM Overweight Insurance Includes: Active Insurance Policies Plan Name Member ID Group # Subscriber Relationship Effect anahi Dates 1 - [employer] [id number] Halley Stallworth Self 04/22/2015 - Unknown Clinical Notes Includes: Signed Clinical Notes starting from 04/05/2022 * Progress note Date Encounter Last Documented by 09/02/2023 Physician Specified Last maggi dobbs on 09/13/2023; 9:34 AM, Gonzalo Hall PA-C; [facility] Active Problems & Conditions - Joint Pain Fingers of Left Hand - Trigger finger - Joint Pain in the Right Knee - Pain in Right Upper Arm Only Near the Shoulder Subjective Which knee or hip hurts the most? Where on the hip or knee?right knee pain on the inside of the knee Have you had prior knee or hip surgery?no What medicines have you taken for the pain?tylenol sometimes What injections have you tried for the pain?no Do you need a cane or walker to ambulate?no Have you improved your shoes or tried a brace?knee brace sometimes and it does not help Have you tried to lose weight?no Chief Complaint The Chief Complaint is: Right knee pain. Referred Here Referred by. History of Present Illness Halley Stallworth is a 78 year old female. - Allergy list reviewed - Problem list reviewed - Medication list reviewed - Patient pain level from 1-10: 6 - No previous treatment. - - Review of medications documented Current Medication - Actos 15 MG Tablet once a day 0 days, 0 refills - ChoiceFul Multivitamin Capsule once a day 0 days, 0 refills - Co Q 10 10 MG Capsule 1 every bedtime 0 days, 0 refills - CO-Q 10 [place]-3 Fish Oil Capsule once a day 0 days, 0 refills - Ecotrin Low Strength 81 MG Tablet Delayed Release once a day 0 days, 0 refills - EQL Vitamin D Gummies Child 400 UNIT Tablet Chewable 10 MCG (400 UNIT) once a day 0 days, 0 refills - GlyBURIDE-MetFORMIN 1.25-250 MG Tablet once a day 0 days, 0 refills - Januvia 25 MG Tablet once a day 0 days, 0 refills - Metoprolol Succinate ER 25 MG Tablet Extended Release 24 Hour once a day 0 days, 0 refills - Oscal 500/200 D-3 500-200 MG-UNIT Tablet once a day 0 days, 0 refills - Percocet 5-325 MG Tablet as needed 0 days, 0 refills - Pravastatin Sodium 10 MG Tablet once a day 0 days, 0 refills - Ramipril 5 MG Capsule once a day 0 days, 0 refills - SM Vitamin B12 TR 1000 MCG Tablet Extended Release once a day 0 days, 0 refills - Welchol 625 MG Tablet 1 every bedtime 0 days, 0 refills Past Medical/Surgical History Reported: Medical: Gallbladder disease and joint problems arthritic. Intermittent hypertension. Immunization History: Recent immunization for pneumococcal pneumonia 03/06/2015. Diagnoses: Hypertension. Diabetes mellitus Surgical: - Heart surgery - Hernia repair Social History Not a current smoker. Current diet: Recent change in diet. No recent change in diet. Caffeine use: Caffeine use. Alcohol: Not using alcohol. Drug Use: Not using drugs. Habits: Not exercising regularly. Allergies - No Known Allergies Family History Cancer mother, father, sister Systemic hypertension mother, father Diabetes mellitus mother, father, brother, sister Paternal: Heart disease father Review Of Systems Systemic: Not feeling tired, no recent weight loss, and no recent weight gain. Head: No headache and no sinus pain. Eyes: No vision problems, no Cataracts, no Glasses/Contacts, and no Glaucoma. Otolaryngeal: No hearing loss and no tinnitus. Cardiovascular: No chest pain or discomfort, no palpitations, no Hypertension, and no High Cholesterol. Pulmonary: No daytime asthma symptoms and no chronic cough. No wheezing. Gastrointestinal: No heartburn and no abdominal pain. No Indigestion, no Peptic Ulcer, no GI Stomach Bleed, no Ulcers, and no Acid Reflux. Endocrine: No hot flashes, no muscle weakness, no Diabetes, no Hypothyroid, and no Hyperthyroid. Hematologic: No easy bleeding, no tendency for easy bruising, and no Anemia. Musculoskeletal: No Arthritis and no lower back pain. No soft tissue swelling and no localized joint pain. Neurological: No dizziness, no convulsions, and no numbness. Psychological: No anxiety, no emotional lability, no depression, and no insomnia. Not crying for no reason. Skin: No dry skin. No Ulcers, no Scars, and no rash. Allergic and Immunologic: No complaint of seasonal allergic reaction. Physical Findings - Vitals taken 09/02/2023 10:40 am ab Height 65 in Weight 163 lbs Body Mass Index 27.1 kg/m2 Body Surface Area 1.8 m2 Patient alert and oriented x3 Mildly overweight Normal gait Bilateral hips stiff, equally Right knee exam Skin clean, dry and intact Qinn-um-nzyyepgi knee swelling, mild effusion Knee flexion contracture 5- Knee Flexion 125- Patellar grind test positive Moderately severe MJT, [No] LJT, [No] Pes Tenderness Strength [5/5] TA, [5/5] Gastroc, [5/5] Quad Sensation intact to light touch throughout Palpable pulses DP/PT Tests 4-view x-ray right knee taken today demonstrates severe medial joint space narrowing, severe patellofemoral joint space narrowing. Assessment - Overweight Severe right knee DJD Previous Tests Imaging: Intravascular Ultrasound (Coronary Vessel/Graft): An X-ray was performed. Counseling/Education - Tobacco non-user - Use of tobacco assessment performed - Lose weight Plan - Patient screened for future fall risk: documentation of any fall with injury in past year Fall Risk Assessment: This patient has been identified as a fall risk. Balance/gait along with postural blood pressure, vision and home fall hazards have been assessed. Medications have been reviewed, and recommendations made with regard to contributing factors for future falls. Plan of care: Consideration of vitamin D supplementation along with balance and strength training with consideration for formal physical therapy has been discussed with the patient. Patient presents today for evaluation of right knee pain, stiffness progressively interfering with walking, life activities. We reviewed she has severe knee DJD. Patient wants to proceed with the attempted cortisone injection however diabetic, offered Zilretta as an alternative not to run her sugars up. Due to stiff hip offered Lido test today we will get x-rays in the future. The [Right] knee was prepped with 3 betadine swabs and an alcohol swab. 3cc 1% Lidocaine plain was injected into the knee superficially. The knee was reprepped in the same fashion. 10 cc mix of Marcaine and lidocaine were then injected into the knee with good fill, patient tolerated procedure well. Hemostasis was obtained with a band-aid Patient is remarks immediate relief before leaving Notes This dictation was done with voice recognition software and may contain errors and omissions. Care Team - KYA MOJICA - [facility]
--- OUTSIDE RECORDS SUMMARY | 2024-03-03 13:54 | XMS_ITS | Clinical Summary ---
Author Organization [facility] Address [address] [place] [address] Phone Care Team Providers Care Fumigator And Sterilizer Name Role Phone Mia ALFRED, Stiven Hallman Unavailable + [phone] KYA MOJICA Primary Care Provider [phone] Reason for Visit and Chief Complaint INJECTION Problems Includes: Problems addressed during this encounter and other active Problems All Visits Onset Date Resolved Date Provider Condition S tatus Joint Pain in the Right Knee 09/02/2023 Gonzalo Hall PA-C Active Last Documented On 4 10:38AM ; [facility] Joint Pain Fingers of Left Hand 01/31/2017 Salomon Sanders MD Active Last Documented On 7 10:15AM ; [facility] Note: Trigger finger Pain in Right Upper Arm Only Near the Shoulder 10/03/2015 Maurisio Izquierdo MD Active Last Documented On 6 12:57PM ; [facility] Plan of Treatment Future Appointments Date Time Location Provi na Follow Up 03/05/2024 1:15PM [facility] Gavino Poe PA-C Last Documented On 4 9:31AM ; [facility] Assessments Includes: Assessments from this encounter No Assessments Recorded Medical Equipment - Implanted Devices Includes: Current Devices No Medical Equipment Recorded Medications Includes: Medications discussed during this encounter and other current Medications Current Medications (continue as prescribed) Ramipril 5 MG Capsule 10/03/2015 Provider: Diagnosis: Last Documented On 6 12:58PM By Laxmi Hoover ; [facility] Metoprolol Succinate ER 25 MG Tablet Extended Re lease 24 Hour 10/03/2015 Provider: Diagnosis: Last Documented On 6 12:59PM By Laxmi Hoover ; [facility] Pravastatin Sodium 10 MG Tablet 10/03/2015 Provider: Diagnosis: Last Documented On 6 12:59PM By Laxmi Hoover ; [facility], [facility] Ecotrin Low Strength 81 MG Tablet Delayed Release 09/20 Provider: Diagnosis: Last Documented On 6 12:59PM By Laxmi Hoover ; [facility] EQL Vitamin D Gummies Child 400 UNIT Tablet Chewable 0 10/03/2015 Provider: Diagnosis: Last Documented On 6 1:00PM By Laxmi Hoover ; [facility], [facility] Co Q 10 10 MG Capsule 10/03/2015 Provider: Diagnosis: Last Documented On 6 1:00PM By Laxim Hoover ; [facility], [facility] Oscal 500/200 D-3 500-200 MG-UNIT Tablet 10/03/2015 Provider: Diagnosis: Last Documented On 6 1:00PM By Laxmi Hoover ; [facility], [facility] ChoiceFul Multivitamin Capsule 10/03/2015 Provider: Diagnosis: Last Documented On 6 1:01PM By Laxmi Hoover ; [facility], [facility] Percocet 5-325 MG Tablet 10/03/2015 Provider: Diagnosis: Last Documented On 6 1:01PM By Laxmi Hoover ; [facility], [facility] Welchol 625 MG Tablet 10/03/2015 Provider: Diagnosis: Last Documented On 6 1:01PM By Laxmi Hoover ; [facility] SM Vitamin B12 TR 1000 MCG Tablet Extended Release Provider: Diagnosis: Last Documented On 6 12:58PM By Laxmi Hoover ; [facility], [facility] Januvia 25 MG Tablet 10/03/2015 Provider: Diagnosis: Last Documented On 6 12:58PM By Laxmi Hoover ; [facility], [facility] Actos 15 MG Tablet 10/03/2015 Provider: Diagnosis: Last Documented On 6 12:58PM By Laxmi Lopez [facility] GlyBURIDE-MetFORMIN 1.25-250 MG Tablet 10/03/2015 Pr ovider: Diagnosis: Last Documented On 6 12:57PM By Laxmi Hoover ; [facility] CO-Q 10 [place]-3 Fish Oil Capsule 10/03/2015 Provider : Diagnosis: Last Documented On 6 12:57PM By Laxmi Hoover ; [facility] Medications Administered Includes: Administered Medications from this encounter No Administered Medications Recorded Results Includes: Results discussed during this encounter No Results Recorded For Specified Dates History of Present Illness Includes: History of Present Illness from this encounter No History of Present Illness Recorded Social History No Social History Recorded - Smoking Status Unknown Procedures and Surgical History Includes: Procedures from this encounter Procedures Code Diagnosis Performing Provider Service Location Service Date DRAIN/INJECT, JOINT/BURSA (RIGHT) Unilateral primary osteoarthritis, right knee Gavino Poe PA-C [facility] 01/22/2024 Last Documented On 4 8:54AM ; [facility] Triamcinolone/Kenalog, 10mg per cc [id number] Unilateral primary osteoarthritis, right knee Gavino Poe PA-C [facility] 01/22/2024 Last Documented On 4 8:54AM ; [facility] Medical History Includes: Medical History addressed during this encounter No Medical History Recorded Family History Includes: Family History addressed during this encounter No Family History Recorded Review of Systems Includes: Review of Systems from this encounter No Review of Systems Recorded Mental Status Includes: Mental Status from this encounter No Mental Status Recorded Functional Status Includes: Functional Status from this encounter No Functional Status Recorded Physical Exam Includes: Physical Exam from this encounter No Physical Exam Recorded Allergies Includes: Active Allergies No Known Allergies Encounters Encounter Provider Location Date Check-In Time Check-Out Time Diagnosis INJECTION Gavino Poe PA-C [facility] 4 8:53AM 9:25AM Insurance Includes: Active Insurance Policies Plan Name Member ID Group # Subscriber Relationship Effect anahi Dates 1 - [employer] [id number] Halley Stallworth Self 04/22/2015 - Unknown Clinical Notes Includes: Clinical Notes from this encounter No Clinical Notes Recorded
--- OUTSIDE RECORDS SUMMARY | 2024-03-03 13:54 | XMS_ITS | Patient Health Record ---
Author Organization [facility] Address [address] [place] [id number] Care Team Providers Care Dish Room Worker Name Role Phone Mateusz Estevez Primary Care Provider ALLERGIES No Known Allergies RESULTS Component Value Reference Range Notes Mammogram Reviewed date:09/13/2023 12:08:36 PM Interpretation:Negative; annual f/u Performing Lab: Notes/Report: Negative; annual f/u result neg H-VITAMIN B12 Reviewed date:11/05/2023 02:33:01 PM Interpretation:953 Performing Lab: Notes/Report: SHARE RESULTS WITH ED KEVIN MD VITB12 953 239-931 pg/mL H-Glycohemoglobin A1C Reviewed date:11/05/2023 02:33:01 PM Interpretation:7.8 Performing Lab: Notes/Report: SHARE RESULTS WITH ED KEVIN MD HGBA1C 7.8 4.0-6.0 % < 6% Non-Diabetic Level < 7% Controlled Diabetic Level > 8% Poorly Controlled Diabetic Level H-CMP Reviewed date:11/05/2023 02:33:00 PM Interpretation:bun 21, gluc 211, a/g 1.9 Performing Lab: Notes/Report: SHARE RESULTS WITH ED KEVIN MD NA 139 136-145 mmol/L K 4.5 3.5-5.1 mmoL/L CL 106 98-107 mmol/L CO2 26 22.0-30.0 mmol/L GAP 11.5 5-15 mEq/L BUN 21 7-17 mg/dl CREATT 0.70 0.52-1.04 mg/dl GFRAA 98 >60 ML/MIN EGFR 81 >60 ml/min GLU 211 74-100 mg/dl CA 9.9 8.4-10.2 mg/dl BILIT 0.8 0.2-1.3 mg/dl AST 29 14-36 U/L ALT 27 12-78 U/L TP 6.6 6.3-8.2 g/dl ALB 4.3 3.5-5.0 g/dl GLOB 2.3 1.3-3.2 g/dL AGRATIO 1.9 1.1-1.8 ALP 65 38-126 U/L H-Lipid Panel Reviewed date:11/05/2023 02:33:00 PM Interpretation:dldl 66, hdl 70 Performing Lab: Notes/Report: SHARE RESULTS WITH ED KEVIN MD Patient Fasting? Y TRIG 105 30-150 mg/dl CHOL 165 140-200 mg/dl DLDL 65.82 100-129 mg/dL VLDL 21 0-40 mg/dL HDL 70 40-60 mg/dl CHLHDL 2.4 1-3.5 H-Microalbumine/Creatinine Reviewed date:11/05/2023 02:32:59 PM Interpretation:Normal Performing Lab: Notes/Report: SHARE RESULTS WITH ED KEVIN MD UCREAT 103 Not Estab. mg/dL Random urine reference range not established. 24 hour urine samples recommended. MICROALB 12.600 0-16.7 mg/L MALBCREAT 12.2 Units: mg/g creat Normal: 0 - 29 Moderately Increased: 30 - 300 Severely Increased: >300 H-VITAMIN D Reviewed date:11/05/2023 02:32:59 PM Interpretation:49.9 Performing Lab: Notes/Report: TVITD 49.9 30-100 ng/mL Deficient <20 ng/mL Insufficient 20-30 ng/mL Sufficient 30-100 ng/mL Potential Toxicity >100 ng/mL H-TSH Reviewed date:11/05/2023 02:32:59 PM Interpretation:Normal Performing Lab: Notes/Report: SHARE RESULTS WITH ED KEVIN MD TSH 2.87 0.465-4.68 uIU/mL DEXA Hip and Spine Reviewed date:10/28/2023 12:04:33 PM Interpretation:osteopenia bilateral hips Performing Lab: Notes/Report: osteopenia bilateral hips Dexa results osteopenia bilateral hips H-VITAMIN B12 Reviewed date:11/05/2023 02:31:14 PM Interpretation: Performing Lab: Notes/Report: VITB12 H-Glycohemoglobin A1C Reviewed date:11/05/2023 12:03:39 PM Interpretation: Performing Lab: Notes/Report: HGBA1C H-CMP Reviewed date:11/05/2023 11:36:16 AM Interpretation: Performing Lab: Notes/Report: NA K CL CO2 GAP BUN CREATT GFRAA EGFR GLU CA BILIT AST ALT TP ALB GLOB AGRATIO ALP CRCLE H-Lipid Panel Reviewed date:11/05/2023 11:36:01 AM Interpretation: Performing Lab: Notes/Report: Chol/HDL Ratio Cholesterol HDL Cholesterol LDL Cholesterol Triglycerides VLDL Cholesterol TRIG CHOL DLDL VLDL HDL CHLHDL H-Microalbumine/Creatinine Reviewed date:11/05/2023 11:35:47 AM Interpretation: Performing Lab: Notes/Report: MICROALB UCREAT UCREAT MALBCREAT H-VITAMIN D Reviewed date:11/05/2023 02:30:51 PM Interpretation: Performing Lab: Notes/Report: TVITD H-TSH Reviewed date:11/05/2023 11:35:34 AM Interpretation: Performing Lab: Notes/Report: TSH REASON FOR REFERRAL No Information MEDICATIONS Medication SIG (Take, Route, Frequency, Duration) Notes Start Date End Date Status Pravastatin Sodium 40 MG 1 tab(s) orally once a day for 90 days Active Ramipril 2.5 MG 1 cap(s) orally 2 ti mes a day Active Multiple Vitamin - 1 cap(s) orally once daily Active Gemtesa 75 MG TAKE ONE TABLET BY M OUTH ONCE A DAY Active CoQ10 100 MG 1 cap(s) orally once a day Active Metoprolol Tartrate 25 MG 1/2 tab(s) ora lly 2 times a day Active Lalalama Colon Health - 1 cap(s) orally once a day Active Jardiance 25 MG 1 tab(s) orally once a day (in the morning) Active Jobst 30-40mmHg Compression Sm DIRECTED 07/25/2016 Active metFORMIN HCl 1000 MG 1 tab orally twice daily Active Reclast 5 MG/100ML 5 mg intravenously e very other year 01/26/2016 Active Contour Test - 2 times a day 01/20/2016 Active Aspirin 81 MG 1 tab(s) orally once a day for 30 day(s) Active Glimepiride 4 MG 1 tab orally twice daily Active Omeprazole 10 MG 1 cap(s) orally once a day for 90 days Active Estradiol 0.1 MG/GM as directed intravag inally once daily at night Active Vitamin B-12 1000 MCG 1 tab(s) orally Once a day 0 09/20/2010 Active Vitamin D3 50 MCG (2000 UT) 2 cap(s) orally once a day 09/24/2012 A ctive oxyBUTYnin Chloride ER 10 MG TAKE TWO TABLETS BY MOUTH ONCE A DAY Active Bvbcl-2-ihni Ethyl Esters 1 GM TAKE 4 CAPSULES BY MOUTH ONCE A DAY Orally Active Celecoxib 100 MG 1 capsule Orally Onc e a day for 90 days Active Sucralfate 1 GM/10ML 2 mL with every meal Orally 0 12/09/2023 Active Calcium + Vitamin D3 600-5 MG-MCG 1 tablet with a meal Orally Once a day for 30 day(s) Active Lantus SoloStar 100 UNIT/ML 8 units Subcutaneous once daily Active Colesevelam HCl 625 MG 2 tab(s) orally 2 times a day for 90 days Active MiraLax - DIRECTED ORALLY O NCE A DAY for 7 DAY(S) Active IMMUNIZATIONS Vaccine Route Administration Date Status Comme nts xAdministration of injection IM Intramuscular 02/15/2012 Administered Tetanus Tdap-Adacel (over 7yrs) ID Intradermal 02/14/2015 Administered Shingrix IM Intramuscular 04/05/2018 Administered Shingrix IM Intramuscular 10/07/2018 Administered Prevnar (PCV20) IM Intramuscular 08/21/2022 Administered Prevnar (PCV13) IM Intramuscular 03/25/2015 Administered PNEUMOVAX 23 VACCINE IM Intramuscular 11/11/2012 Administe red PNEUMOVAX 23 VACCINE IM Intramuscular 03/19/2018 Administe red Hepatitis A (adult) IM Intramuscular 04/05/2018 Administer ed Hepatitis A (adult) IM Intramuscular 10/07/2018 Administer ed Fluzone PF Quad (6-35 months) Unknown 02/15/2021 Administered Fluzone PF Quad (6-35 months) Unknown 02/22/2022 Administered Fluzone High Dose (65yr and older) IM Intramuscular 01/29/2014 Administered Fluzone High Dose (65yr and older) IM Intramuscular 02/14/2015 Administered Fluzone High Dose (65yr and older) IM Intramuscular 01/26/2016 Administered Fluzone High Dose (65yr and older) IM Intramuscular 02/13/2017 Administered Fluzone High Dose (65yr and older) IM Intramuscular 03/19/2018 Administered Fluzone High Dose (65yr and older) IM Intramuscular 02/18/2020 Administered Fluzone High Dose (65yr and older) IM Intramuscular 02/25/2023 Administered Fluzone High Dose (65yr and older) IM Intramuscular 02/24/2024 Administered COVID 19 Pfizer Unknown 05/19/2020 Administered COVID 19 Pfizer Unknown 06/09/2020 Administered COVID 19 Pfizer Unknown 01/18/2021 Administered SOCIAL HISTORY Sex Assigned At : Social History Observation Description Sex Assigned At Unknown PROBLEMS Problem Type ICD Code Onset Dates Problem Status W/U Status Risk SNOMED Code Notes Problem Type 2 diabetes mellitus without complications (E11.9) Active confirmed Type I I diabetes mellitus without complication (790277379) Problem Essential (primary) hypertension (I10) Active confirmed Essential hypertension (40030982) Problem Vitamin D deficiency (E55.9) Active confirmed 67343266 Problem Vitamin B12 deficien cy (E53.8) Active confirmed 877845692 Problem Essential hypertensi on (I10) Active confirmed 73384819 Problem Hypertriglyceridemia (E78.1) Active confirmed 453577149 Problem OAB (overactive bladder) (N32.81) Active confirmed 562472464 Problem Mixed hyperlipidemia (E78.2) Active confirmed 633536781 Problem H/O aortic valve replacement (Z95.2) Active confirmed History of heart valve repair with prosthesis (408955883404042 ) Problem Hyperlipidemia, unspecified (E78.5) Active confirmed Hyperlip idemia (88621776) Problem Type 2 diabetes mellitus without complication (E11.9) Active confirmed 12986319 Problem 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) Active confirmed 246594231 Problem Obstructive sleep apnea syndrome (G47.33) Active confirmed 04838993 Problem Gastroesophageal reflux disease, esophagitis presence not specified (K21.9) Active confirmed 574351717 Problem Ataxia (R27.0) Active confirmed 4507602 6 Problem Urge incontinence of urine (N39.41) Active confirmed 62639920 Problem Osteopenia with high risk of fracture (M85.80) Active confirmed 687538648 Problem Body mass index (BMI ) of 30.0-30.9 in adult (Z68.30) Active confirmed 679393759 Problem Schatzki's ring of distal esophagus (K22.2) Active confirmed 104506591 Problem Esophageal dysphagia (R13.10) Active confirmed 38569993 VITAL SIGNS Heart Rate 68 /min 02/24/2024 Blood pressure diastolic 72 mm Hg 02/24/2024 Height 66.75 in 02/24/2024 Blood pressure systolic 130 mm Hg 02/24/2024 Weight 169.2 lbs 02/24/2024 BMI 26.70 kg/m2 02/24/2024 Encounters Encounter Location Date Provider Diagnosis [facility] [facility] [address] [place], [place] [id number] 06/21/2023 Mateusz Avinger Furuncle of chin L02 .02 ; OAB (overactive bladder) N32.81 ; Urge incontinence of urine N39.41 and Pain in right knee M25.561 [facility] [address] [facility] [address] [place], [place] [phone] 07/15/2023 Mateusz Avinger Urge incontinence of urine N39.41 [facility] [address] [facility] [address] [place], [place] [id number] 08/26/2023 Mateusz Avinger Type 2 diabetes matt itus without complication E11.9 ; Essential hypertension I10 ; Mixed hyperlipidemia E78.2 ; Vitamin D deficiency E55.9 ; Vitamin B12 deficiency E53.8 ; Osteopenia with high risk of fracture M85.80 ; Other osteoarthritis involving multiple joints M15.8 ; OAB (overactive bladder) N32.81 ; Urge incontinence of urine N39.41 and Osteoporosis screening Z13.820 [facility] [address] [facility] [address] [place], [place] [id number] 10/28/2023 Mateusz Avinger [facility] [address] [facility] [address] [place], [place] [id number] 11/05/2023 Mateusz Avinger [facility] [address] [facility] [address] [place], [place] [id number] 12/09/2023 Mateusz Avinger [facility] [address] [facility] [address] [place] [id number] 02/24/2024 Mateusz Avinger Essential hypertensi on I10 ; Gastroesophageal reflux disease, esophagitis presence not specified K21.9 ; Osteopenia with high risk of fracture M85.80 and Encounter for immunization Z23 [facility] [address] [facility] [address] [place] [id number] 02/24/2024 Mateusz Avinger Osteopenia with high risk of fracture M85.80 [facility] [address] [facility] [address] [place] [id number] 02/24/2024 Mateusz Avinger ASSESSMENTS Encounter Date Diagnosis Assessment Notes Treatment Notes Treatment Clinical Notes 02/24/2024 Osteopenia with high risk of fracture (ICD-10 - M85.80) 02/24/2024 Essential hypertensi on (ICD-10 - I10) 02/24/2024 Gastroesophageal ref lux disease, esophagitis presence not specified (ICD-10 - K21.9) 08/26/2023 Essential hypertensi on (ICD-10 - I10) 08/26/2023 Type 2 diabetes mellitus without complication (ICD-10 - E11.9) 07/15/2023 Urge incontinence of urine (ICD-10 - N39.41) 06/21/2023 OAB (overactive bladder) (ICD-10 - N32.81) 06/21/2023 Furuncle of chin (ICD-10 - L02.02) 08/26/2023 Mixed hyperlipidemia (ICD-10 - E78.2) 06/21/2023 Urge incontinence of urine (ICD-10 - N39.41) 02/24/2024 Osteopenia with high risk of fracture (ICD-10 - M85.80) 02/24/2024 Encounter for immunization (ICD-10 - Z23) 08/26/2023 Vitamin D deficiency (ICD-10 - E55.9) 06/21/2023 Pain in right knee (ICD-10 - M25.561) OTC topical treatments discussed 08/26/2023 Vitamin B12 deficien cy (ICD-10 - E53.8) 08/26/2023 Osteopenia with high risk of fracture (ICD-10 - M85.80) 08/26/2023 Other osteoarthritis involving multiple joints (ICD-10 - M15.8) 08/26/2023 OAB (overactive bladder) (ICD-10 - N32.81) 08/26/2023 Urge incontinence of urine (ICD-10 - N39.41) 08/26/2023 Osteoporosis screeni ng (ICD-10 - Z13.820) PLAN OF TREATMENT Next Appt Details Provider Name:Mateusz Rogers ry, 08/24/2024 09:00:00 AM, [address], [place], [place], [id number], Insurance Providers Payer Name Payer Address Payer Phone Subscriber Number Group Number Insured Name Patient Relationship to Insured Coverage Start Date Coverage End Date [employer] (MEDICAR E) [address] [address] [place] [address] [id number] SINAN WILKINSON Self - patient is the insured MEDICAL (GENERAL) HISTORY Medical History History ICD Code Hypertension Type 2 DM, followed by Endo Hyperlipidemia Post Menopausal Aortic Stenosis, mod-severe Echo 11/24, s /p valve replacement 11/25 MOLECULAR PHYSICIST - Dr. Lau Optho - [facility]. Campbell at [facility] sleep apnea, Dx 2013 Right proximal humerus fracture September 201 6 Osteopenia, Reclast initiated in 2015 Esophageal Stricture osteoarthritis, multiple joints, right k nee is worst Surgical History Surgery Date(Month/Year) Tonsillectomy Tubal Ligation Cholecystectomy Colonoscopy 2003 Aortic Valve Replacement - [employer]: Mo del [id number], SN [id number] 11/26/2005 RT Eye, Repaired Hole in Macula 04/2009 Yag procedure on right eye 03/26/2013 LT Cateract Removal 01/26/2014 RT Shoulder Repair 09/2015 Hospitalization History Reason Date(Month/Year) Fall- [facility] ER 10/01/2015 RT Shoulder Repair- Psychiatric 10/12-2 10/2015 Clarita Sharma - Physical thera py 10/04/2015
--- OUTSIDE RECORDS SUMMARY | 2024-03-03 13:54 | XMS_ITS ---
Care Plan - [facility], [facility] Created on: March 03, 2024 Halley Stallworth : 1945 Sex: Female Author Organization [facility] Address [address] [place] [address] Phone Care Team Providers Care Bicycle Subassembler Name Role Phone Mia ALFRED, Stiven Hallman Unavailable [phone] KYA MOJICA Primary Care Provider [phone]
--- OUTSIDE RECORDS SUMMARY | 2024-03-03 13:55 | XMS_ITS | Clinical Summary ---
Author Organization [facility] , [facility] Address [address] [place] [address] Phone Care Team Providers Care Animal Caretaker Supervisor Name Role Phone Mia ALFRED, Stiven Hallman Unavailable + [phone] KYA MOJICA Primary Care Provider [phone] Reason for Visit and Chief Complaint The Chief Complaint is: 6 month recheck right shoulder Problems Includes: Problems addressed during this encounter and other active Problems All Visits Onset Date Resolved Date Provider Condition S tatus Joint Pain in the Right Knee 09/02/2023 Gonzalo Hall PA-C Active Last Documented On 4 10:38AM ; [facility], [facility] Joint Pain Fingers of Left Hand 01/31/2017 Salomon Sanders MD Active Last Documented On 7 10:15AM ; [facility], [facility] Note: Trigger finger Pain in Right Upper Arm Only Near the Shoulder 10/03/2015 Maurisio Izquierdo MD Active Last Documented On 6 12:57PM ; [facility], [facility] Plan of Treatment Future Appointments Date Time Location Provi na Follow Up 03/05/2024 1:15PM [facility] Gavino Poe PA-C Last Documented On 4 9:31AM ; [facility], [facility] Instructions to patient Instructions for patient con sulbill pcp for bp Last Documented On 7 10:16AM ; [facility] Lose weight Last Documented On 7 10:16AM ; [facility], [facility] Assessments Includes: Assessments from this encounter No Assessments Recorded Instructions Includes: Instructions from this encounter Instructions to patient Instructions for patient madonna jay pcp for bp Last Documented On 7 10:16AM ; [facility], [facility] Lose weight Last Documented On 7 10:16AM ; [facility], [facility] Medical Equipment - Implanted Devices Includes: Current Devices No Medical Equipment Recorded Medications Includes: Medications discussed during this encounter and other current Medications Current Medications (continue as prescribed) Ramipril 5 MG Capsule 10/03/2015 Provider: Diagnosis: Last Documented On 6 12:58PM By Laxmi Hoover ; [facility] Metoprolol Succinate ER 25 MG Tablet Extended Re lease 24 Hour 10/03/2015 Provider: Diagnosis: Last Documented On 6 12:59PM By Laxmi Hoover ; [facility] Pravastatin Sodium 10 MG Tablet 10/03/2015 Provider: Diagnosis: Last Documented On 6 12:59PM By Laxim Hoover ; [facility] Ecotrin Low Strength 81 MG Tablet Delayed Release 09/20 Provider: Diagnosis: Last Documented On 6 12:59PM By Laxmi Hoover ; [facility], [facility] EQL Vitamin D Gummies Child 400 UNIT Tablet Chewable 0 10/03/2015 Provider: Diagnosis: Last Documented On 6 1:00PM By Laxmi Hoover ; [facility], [facility] Co Q 10 10 MG Capsule 10/03/2015 Provider: Diagnosis: Last Documented On 6 1:00PM By Laxmi Hoover ; [facility], [facility] Oscal 500/200 D-3 500-200 MG-UNIT Tablet 10/03/2015 Provider: Diagnosis: Last Documented On 6 1:00PM By Laxmi Hoover ; [facility], [facility] ChoiceFul Multivitamin Capsule 10/03/2015 Provider: Diagnosis: Last Documented On 6 1:01PM By Laxmi Hoover ; [facility], [facility] Percocet 5-325 MG Tablet 10/03/2015 Provider: Diagnosis: Last Documented On 6 1:01PM By Laxmi Hoover ; [facility], [facility] Welchol 625 MG Tablet 10/03/2015 Provider: Diagnosis: Last Documented On 6 1:01PM By Laxmi Hooevr ; [facility], [facility] Vitamin B12 TR 1000 MCG Tablet Extended Release Provider: Diagnosis: Last Documented On 6 12:58PM By Laxmi Hoover ; [facility], [facility] Januvia 25 MG Tablet 10/03/2015 Provider: Diagnosis: Last Documented On 6 12:58PM By Laxmi Hoover ; [facility], [facility] Actos 15 MG Tablet 10/03/2015 Provider: Diagnosis: Last Documented On 6 12:58PM By Laxmi Hoover ; [facility], [facility] GlyBURIDE-MetFORMIN 1.25-250 MG Tablet 10/03/2015 Pr ovider: Diagnosis: Last Documented On 6 12:57PM By Laxmi Hoover ; [facility], [facility] CO-Q 10 [place]-3 Fish Oil Capsule 10/03/2015 Provider : Diagnosis: Last Documented On 6 12:57PM By Laxmi Hoover ; [facility] Past Medications on file Cyclobenzaprine HCl 5 MG Tablet 05/21/2016 - 06/20/2016 Provider: Maurisio thomas MD Diagnosis: three times a day Last Documented On 7 9:38AM By Rohan Green ; [facility] Cyclobenzaprine HCl 5 MG Tablet 04/04/2016 - 05/04/2016 Provider: Maurisio thomas MD Diagnosis: three times a day Last Documented On 6 11:13AM By Elysia Schroeder ; [facility] Percocet 5-325 MG Tablet 11/25/2015 - 12/05/2015 Provider: Maurisio Izquierdo MD Diagnosis: Displaced commin uted fx shaft of humerus, right arm, init 1-2 po q 4-6h prn pain Last Documented On 6 9:40AM By [facility] ; [facility], [facility] Bactrim DS 800-160 MG Tablet 10/11/2015 - 10/18/2015 Provider: Maurisio thomas MD Diagnosis: Displ commnt fx shaft of humer, r arm, 7thD twice a day Last Documented On 6 11:32AM By Laxmi Hoover ; [facility], [facility] Percocet 5-325 MG Tablet 10/05/2015 - 10/15/2015 Provider: Maurisio Izquierdo MD Diagnosis: Displaced commin uted fx shaft of humerus, right arm, init 1-2 po q 4-6h prn pain Last Documented On 6 1:30PM By Laxmi Hoover ; [facility], [facility] Medications Administered Includes: Administered Medications from this encounter No Administered Medications Recorded Vital Signs Includes: Vital Signs from this encounter Vital Name 10/17/2016 10:30A 10/17/2016 10: 16A Blood Pressure Sitting (mmHg) 161/76 Pulse Rate-Sitting (bpm) 65 Height (in) 69 69 Weight (lb) 191 Body Mass Index (kg/m2) 28.2 Body Surface Area (m2) 2.0 Note: SAW Last Documented: On 10/17/2016 10:31A M ; [facility], [facility] On 10/17/2016 10:16AM ; [facility], [facility] Results Includes: Results discussed during this encounter No Results Recorded For Specified Dates History of Present Illness Includes: History of Present Illness from this encounter HPI Halely Stallworth is a 71 year old female. - Medication list reviewed with patient. Social History Description Last Updated Not using drugs 09/02/2023 Last Documented On 7 10:16AM ; [facility], [facility] Smoking status : Never smoker 10/26/2015 Last Documented On 7 10:16AM ; [facility], [facility] No tobacco use 10/05/2015 Last Documented On 7 10:16AM ; [facility], [facility] Caffeine use 10/03/2015 Last Documented On 7 10:16AM ; [facility], [facility] Not a current smoker 10/03/2015 Last Documented On 7 10:16AM ; [facility], [facility] Not exercising regularly 10/03/2015 Last Documented On 7 10:16AM ; [facility], [facility] Recent change in diet 10/03/2015 Last Documented On 7 10:16AM ; [facility], [facility] Procedures and Surgical History Includes: Procedures from this encounter Procedures Code Diagnosis Performing Provider Service L ocation Service Date Clinical summary provided to patient Last Documented On 7 10:16AM ; [facility], [facility] Surgical History Last Updated History of heart surgery 10/03/2015 Last Documented On 7 10:16AM ; [facility], [facility] History of hernia repair 10/03/2015 Last Documented On 7 10:16AM ; [facility], [facility] Medical History Includes: Medical History addressed during this encounter Description Last Updated A recent immunization for pneumococcal p neumonia 03/06/2015 10/03/2015 Last Documented On 7 10:16AM ; [facility] Arthritic joint problems 10/03/2015 Last Documented On 7 10:16AM ; [facility] Gallbladder disease 10/03/2015 Last Documented On 7 10:16AM ; [facility] History of diabetes mellitus 10/03/2015 Last Documented On 7 10:16AM ; [facility], [facility] Intermittent hypertension 10/03/2015 Last Documented On 7 10:16AM ; [facility], [facility] Family History Includes: Family History addressed during this encounter Description Last Updated Family history of cancer mother, father, sister 10/03/2015 Last Documented On 7 10:16AM ; [facility] Family history of diabetes mellitus moth er, father, brother, sister 10/03/2015 Last Documented On 7 10:16AM ; [facility] Family history of hypertension mother, f ather 10/03/2015 Last Documented On 7 10:16AM ; [facility] Paternal history of family history of he art disease father 10/03/2015 Last Documented On 7 10:16AM ; [facility], [facility] Review of Systems Includes: Review of Systems from this encounter No Review of Systems Recorded Mental Status Includes: Mental Status from this encounter No Mental Status Recorded Functional Status Includes: Functional Status from this encounter No Functional Status Recorded Physical Exam Includes: Physical Exam from this encounter Allergies Includes: Active Allergies No Known Allergies Encounters Encounter Provider Location Date Check-In Time Check- Out Time Diagnosis Follow Up Maurisio Izquierdo MD [facility] 7 10:14AM 11:15AM Insurance Includes: Active Insurance Policies Plan Name Member ID Group # Subscriber Relationship Effect anahi Dates 1 - [employer] [id number] Halley Stallworth Self 04/22/2015 - Unknown Clinical Notes Includes: Clinical Notes from this encounter No Clinical Notes Recorded
--- OUTSIDE RECORDS SUMMARY | 2024-03-03 13:55 | XMS_ITS | Clinical Summary ---
Author Organization [facility] , [facility] Address [address] [place] [address] Phone Care Team Providers Care Child Welfare Manager Name Role Phone Mia ALFRED, Stiven Hallman Unavailable + [phone] KYA MOJICA Primary Care Provider [phone] Reason for Visit and Chief Complaint INJECTION Problems Includes: Problems addressed during this encounter and other active Problems All Visits Onset Date Resolved Date Provider Condition S tatus Joint Pain in the Right Knee 09/02/2023 Gonzalo Hall PA-C Active Last Documented On 4 10:38AM ; [facility], [facility] Joint Pain Fingers of Left Hand 01/31/2017 Salomon Sanders MD Active Last Documented On 7 10:15AM ; [facility], [facility] Note: Trigger finger Pain in Right Upper Arm Only Near the Shoulder 10/03/2015 Maurisio Izquierdo MD Active Last Documented On 6 12:57PM ; [facility], [facility] Plan of Treatment Future Appointments Date Time Location Provi na Follow Up 03/05/2024 1:15PM [facility] Gavino Poe PA-C Last Documented On 4 9:31AM ; [facility], [facility] Assessments Includes: Assessments from this encounter No Assessments Recorded Medical Equipment - Implanted Devices Includes: Current Devices No Medical Equipment Recorded Medications Includes: Medications discussed during this encounter and other current Medications Current Medications (continue as prescribed) Ramipril 5 MG Capsule 10/03/2015 Provider: Diagnosis: Last Documented On 6 12:58PM By Laxmi Hoover ; [facility], [facility] Metoprolol Succinate ER 25 MG Tablet Extended Re lease 24 Hour 10/03/2015 Provider: Diagnosis: Last Documented On 6 12:59PM By Laxmi Hoover ; [facility], [facility] Pravastatin Sodium 10 MG Tablet 10/03/2015 Provider: Diagnosis: Last Documented On 6 12:59PM By Laxmi Hoover ; [facility], [facility] Ecotrin Low Strength 81 MG Tablet Delayed Release 09/20 Provider: Diagnosis: Last Documented On 6 12:59PM By Laxmi Hoover ; [facility], [facility] EQL Vitamin D Gummies Child 400 UNIT Tablet Chewable 0 10/03/2015 Provider: Diagnosis: Last Documented On 6 1:00PM By Laxmi Hoover ; [facility], [facility] Co Q 10 10 MG Capsule 10/03/2015 Provider: Diagnosis: Last Documented On 6 1:00PM By Laxmi Hoover ; [facility], [facility] Oscal 500/200 D-3 500-200 MG-UNIT Tablet 10/03/2015 Provider: Diagnosis: Last Documented On 6 1:00PM By Laxmi Hoover ; [facility], [facility] ChoiceFul Multivitamin Capsule 10/03/2015 Provider: Diagnosis: Last Documented On 6 1:01PM By Laxmi Hoover ; [facility], [facility] Percocet 5-325 MG Tablet 10/03/2015 Provider: Diagnosis: Last Documented On 6 1:01PM By Laxmi Hoover ; [facility], [facility] Welchol 625 MG Tablet 10/03/2015 Provider: Diagnosis: Last Documented On 6 1:01PM By Laxmi Hoover ; [facility], [facility] SM Vitamin B12 TR 1000 MCG Tablet Extended Release Provider: Diagnosis: Last Documented On 6 12:58PM By Laxmi Hoover ; [facility], [facility] Januvia 25 MG Tablet 10/03/2015 Provider: Diagnosis: Last Documented On 6 12:58PM By Laxmi Hoover ; [facility], [facility] Actos 15 MG Tablet 10/03/2015 Provider: Diagnosis: Last Documented On 6 12:58PM By Laxmi Lopez [facility] GlyBURIDE-MetFORMIN 1.25-250 MG Tablet 10/03/2015 Pr ovider: Diagnosis: Last Documented On 6 12:57PM By Laxmi Hoover ; [facility] CO-Q 10 [place]-3 Fish Oil Capsule 10/03/2015 Provider : Diagnosis: Last Documented On 6 12:57PM By Laxmi Hoover ; [facility] Medications Administered Includes: Administered Medications from [...] primary osteoarthritis, right knee Gavino Poe PA-C [facility] 10/16/2023 Last Documented On 4 10:53AM ; [facility] Triamcinolone/Kenalog, 10mg per cc [id number] Unilateral primary osteoarthritis, right knee Gavino Poe PA-C [facility] 10/16/2023 Last Documented On 4 10:53AM ; [facility] Medical History Includes: Medical History addressed [...] Check-Out Time Diagnosis INJECTION Gavino Poe PA-C [facility] 4 10:38AM 11:01AM Insurance Includes: Active Insurance Policies Plan Name Member ID Group # Subscriber Relationship Effect anahi Dates 1 - [employer] [id number] Halley Stallworth Self 04/22/2015 - Unknown Clinical Notes Includes: Clinical Notes from this encounter No Clinical Notes Recorded
--- OUTSIDE RECORDS SUMMARY | 2024-03-03 13:55 | XMS_ITS | Clinical Summary ---
Author Organization [facility] Address [address] [place] [address] Phone Care Team Providers Care C Architect Name Role Phone Mia ALFRED, Stiven Hallman Unavailable + [phone] KYA MOJICA Primary Care Provider [phone] Reason for Visit and Chief Complaint The Chief Complaint is: Left hand trigger finger Problems Includes: Problems addressed during this encounter and other active Problems Current Visit Onset Date Resolved Date Provider Conditio n Status Joint Pain Fingers of Left Hand 01/31/2017 Salomon Sanders MD Active Last Documented On 01/31/2017 10:15AM ; [facility] Note: Trigger finger Past Visits Onset Date Resolved Date Provider Condition Status Joint Pain in the Right Knee 09/02/2023 Gonzalo Hall PA-C Active Last Documented On 4 10:38AM ; [facility] Pain in Right Upper Arm Only Near the Shoulder 10/03/2015 Maurisio Izquierdo MD Active Last Documented On 6 12:57PM ; [facility] Plan of Treatment We discussed her physical exam findings. We discussed the risks and benefits of the trigger finger injection and she wished to proceed today. She will follow-up as needed. Left hand injection: The base of the finger on the palmar surface was prepped with ALCOHOL. The needle was inserted in the sterile area. Aspiration revealed no presence of vascular bed. I then injected 0.5 cc of Kenalog and 0.5 cc of lidocaine into the flexor tendon sheath. - Last Documented On 02/04/2017 1:35PM ; [facility] Future Appointments Date Time Location Provi na Follow Up 03/05/2024 1:15PM [facility] Gavino Poe PA-C Last Documented On 4 9:31AM ; [facility], [facility] Instructions to patient Instructions for patient con sult pcp for bp Last Documented On 7 10:16AM ; [facility] Lose weight Last Documented On 7 10:16AM ; [facility] Assessments Includes: Assessments from this encounter Findings Left hand trigger finger - Last Documented On 02/04/2017 1:35PM ; [facility] Instructions Includes: Instructions from this encounter Instructions to patient Instructions for patient con sult pcp for bp Last Documented On 7 10:16AM ; [facility] Lose weight Last Documented On 7 10:16AM ; [facility] Medical Equipment - Implanted Devices Includes: Current Devices No Medical Equipment Recorded Medications Includes: Medications discussed during this encounter and other current Medications Current Medications (continue as prescribed) Ramipril 5 MG Capsule 10/03/2015 Provider: Diagnosis: Last Documented On 6 12:58PM By Laxmi Lopez [facility] Metoprolol Succinate ER 25 MG Tablet Extended Re lease 24 Hour 10/03/2015 Provider: Diagnosis: Last Documented On 6 12:59PM By Laxmi Lopez [facility] Pravastatin Sodium 10 MG Tablet 10/03/2015 Provider: Diagnosis: Last Documented On 6 12:59PM By Laxmi Lopez [facility] Ecotrin Low Strength 81 MG Tablet Delayed Release 09/20 Provider: Diagnosis: Last Documented On 6 12:59PM By Laxmi Lopez [facility] EQL Vitamin D Gummies Child 400 UNIT Tablet Chewable 0 10/03/2015 Provider: Diagnosis: Last Documented On 6 1:00PM By Laxmi Lopez [facility] Co Q 10 10 MG Capsule 10/03/2015 Provider: Diagnosis: Last Documented On 6 1:00PM By Laxmi Hoover ; [facility] Oscal 500/200 D-3 500-200 MG-UNIT Tablet 10/03/2015 Provider: Diagnosis: Last Documented On 6 1:00PM By Laxmi Hoover ; [facility], [facility] ChoiceFul Multivitamin Capsule 10/03/2015 Provider: Diagnosis: Last Documented On 6 1:01PM By Laxmi Hoover ; [facility] Percocet 5-325 MG Tablet 10/03/2015 Provider: Diagnosis: Last Documented On 6 1:01PM By Laxmi Hoover ; [facility], [facility] Welchol 625 MG Tablet 10/03/2015 Provider: Diagnosis: Last Documented On 6 1:01PM By Laxmi Hoover ; [facility], [facility] Vitamin B12 TR 1000 MCG Tablet Extended Release Provider: Diagnosis: Last Documented On 6 12:58PM By Laxmi Hoover ; [facility] Januvia 25 MG Tablet 10/03/2015 Provider: Diagnosis: Last Documented On 6 12:58PM By Laxmi Hoover ; [facility] Actos 15 MG Tablet 10/03/2015 Provider: Diagnosis: Last Documented On 6 12:58PM By Laxmi Hoover ; [facility] GlyBURIDE-MetFORMIN 1.25-250 MG Tablet 10/03/2015 Pr ovider: Diagnosis: Last Documented On 6 12:57PM By Laxmi Hoover ; [facility] CO-Q 10 Alba-3 Fish Oil Capsule 10/03/2015 Provider : Diagnosis: Last Documented On 6 12:57PM By Laxmi Hoover ; [facility], [facility] Past Medications on file Cyclobenzaprine HCl 5 MG Tablet 05/21/2016 - 06/20/2016 Provider: Maurisio thomas MD Diagnosis: three times a day Last Documented On 7 9:38AM By Rohan Green ; [facility], [facility] Cyclobenzaprine HCl 5 MG Tablet 04/04/2016 - 05/04/2016 Provider: Maurisio thomas MD Diagnosis: three times a day Last Documented On 6 11:13AM By Elysia Schroeder ; [facility] Percocet 5-325 MG Tablet 11/25/2015 - 12/05/2015 Provider: Maurisio Izquierdo MD Diagnosis: Displaced commin uted fx shaft of humerus, right arm, init 1-2 po q 4-6h prn pain Last Documented On 6 9:40AM By Laxmi Hoover ; [facility] Bactrim DS 800-160 MG Tablet 10/11/2015 - 10/18/2015 Provider: Maurisio thomas MD Diagnosis: Displ commnt fx shaft of humer, r arm, 7thD twice a day Last Documented On 6 11:32AM By Laxmi Hoover ; [facility] Percocet 5-325 MG Tablet 10/05/2015 - 10/15/2015 Provider: Maurisio Izquierdo MD Diagnosis: Displaced commin uted fx shaft of humerus, right arm, init 1-2 po q 4-6h prn pain Last Documented On 6 1:30PM By Laxmi Hoover ; [facility] Medications Administered Includes: Administered Medications from this encounter No Administered Medications Recorded Vital Signs Includes: Vital Signs from this encounter Vital Name 01/31/2017 10:17A Blood Pressure Sitting (mmHg) 130/59 Pulse Rate-Sitting (bpm) 48 Height (in) 69 Weight (lb) 191 Body Mass Index (kg/m2) 28.2 Body Surface Area (m2) 2.0 Note: el Last Documented: On 01/31/2017 10:18A M ; [facility] Results Includes: Results discussed during this encounter No Results Recorded For Specified Dates History of Present Illness Includes: History of Present Illness from this encounter ZAKIYA Stallworth is a 71 year old female. - Symptoms Left Trigger finger is locked up. - Medication list reviewed with patient. - Pain is throbbing - Pain is dull, aching Please rate pain on scale of 1 - 10: Previous Treatment: none This is a 71-year-old female who presents today for initial evaluation of left trigger finger. Patient presents today with the ring finger of the left left hand in a locked position. She does have a history of this within the same finger locked 2 years ago that was remedied with injection. Social History Description Last Updated Not using drugs 09/02/2023 Last Documented On 7 10:16AM ; [facility] Smoking status : Never smoker 10/26/2015 Last Documented On 7 10:16AM ; [facility] No tobacco use 10/05/2015 Last Documented On 7 10:16AM ; [facility] Caffeine use 10/03/2015 Last Documented On 7 10:16AM ; [facility] Not a current smoker 10/03/2015 Last Documented On 7 10:16AM ; [facility] Not exercising regularly 10/03/2015 Last Documented On 7 10:16AM ; [facility] Recent change in diet 10/03/2015 Last Documented On 7 10:16AM ; [facility] Procedures and Surgical History Surgical History Last Updated History of heart surgery 10/03/2015 Last Documented On 7 10:16AM ; [facility] History of hernia repair 10/03/2015 Last Documented On 7 10:16AM ; [facility] Medical History Includes: Medical History addressed during this encounter Description Last Updated A recent immunization for pneumococcal p neumonia 03/06/2015 10/03/2015 Last Documented On 7 10:16AM ; [facility] Arthritic joint problems 10/03/2015 Last Documented On 7 10:16AM ; [facility] Gallbladder disease 10/03/2015 Last Documented On 7 10:16AM ; [facility] History of diabetes mellitus 10/03/2015 Last Documented On 7 10:16AM ; [facility] Intermittent hypertension 10/03/2015 Last Documented On 7 10:16AM ; [facility] Family History Includes: Family History addressed during this encounter Description Last Updated Family history of cancer mother, father, sister 10/03/2015 Last Documented On 7 10:16AM ; [facility] Family history of diabetes mellitus moth er, father, brother, sister 10/03/2015 Last Documented On 7 10:16AM ; [facility] Family history of hypertension mother, f ather 10/03/2015 Last Documented On 7 10:16AM ; [facility] Paternal history of family history of he art disease father 10/03/2015 Last Documented On 7 10:16AM ; [facility] Review of Systems Includes: Review of Systems from this encounter All systems within normal limits with exception of musculoskeletal. Musculoskeletal: Left hand ring finger in a locked position with tenderness to palpation about the palmar surface. Mental Status Includes: Mental Status from this encounter No Mental Status Recorded Functional Status Includes: Functional Status from this encounter No Functional Status Recorded Physical Exam Includes: Physical Exam from this encounter Allergies Includes: Active Allergies No Known Allergies Encounters Encounter Provider Location Date Check-In Time Check-Out Time Diagnosis NEW PATIENT Salomon Sanders MD [facility] 02/01/20 17 8:41AM 11:15AM Insurance Includes: Active Insurance Policies Plan Name Member ID Group # Subscriber Relationship Effect anahi Dates 1 - [employer] [id number] Halley Vishal Stallworth Self 04/22/2015 - Unknown Clinical Notes Includes: Clinical Notes from this encounter No Clinical Notes Recorded
--- OUTSIDE RECORDS SUMMARY | 2024-03-03 13:55 | XMS_ITS | Clinical Summary ---
Author Organization [facility] , [facility] Address [address] [place] [address] Phone Care Team Providers Care General Dentist/Owner Name Role Phone Mia ALFRED, Stiven Hallman Unavailable [phone] KYA MOJICA Primary Care Provider [phone] Reason for Visit and Chief Complaint The Chief Complaint is: right knee pain Problems Includes: Problems addressed during this encounter and other active Problems Current Visit Onset Date Resolved Date Provider Condkatieo n Status Joint Pain in the Right Knee 09/02/2023 Gonzalo Hall PA-C Active Last Documented On 4 10:38AM ; [facility], [facility] Past Visits Onset Date Resolved Date Provider Condition Status Joint Pain Fingers of Left Hand 01/31/2017 Salomon Sanders MD Active Last Documented On 01/31/2017 10:15AM ; [facility], [facility] Note: Trigger finger Pain in Right Upper Arm Only Near the Shoulder 10/03/2015 Maurisio Izquierdo MD Active Last Documented On 6 12:57PM ; [facility], [facility] Plan of Treatment - Patient screened for future fall risk: documentation of any fall with injury in past year - Last Documented On 09/13/2023 9:34AM ; [facility], [facility] Fall Risk Assessment: This patient has been [...] therapy has been discussed with the patient. - Last Documented On 09/13/2023 9:34AM ; [facility], [facility] Patient presents today for evaluation of right [...] Patient is remarks immediate relief before leaving - Last Documented On 09/13/2023 9:34AM ; [facility], [facility] Future Appointments Date Time Location Provi na Follow Up 03/05/2024 1:15PM [facility] Gavino Poe PA-C Last Documented On 4 9:31AM ; [facility], [facility] Instructions to patient Lose weight Last Documented On 4 10:40AM ; [facility], [facility] Assessments Includes: Assessments from this encounter Findings - Overweight - Last Documented On 09/13/2023 9:34AM ; [facility], [facility] Severe right knee DJD - Last Documented On 09/13/2023 9:34AM ; [facility], [facility] Instructions Includes: Instructions from this encounter Instructions to patient Lose weight Last Documented On 4 10:40AM ; [facility], [facility] Medical Equipment - Implanted Devices Includes: Current Devices No Medical Equipment Recorded Medications Includes: Medications discussed during this encounter and other current Medications Current Medications (continue as prescribed) Ramipril 5 MG Capsule 10/03/2015 Provider: Diagnosis: Last Documented On 6 12:58PM By Lxami Lopez [facility], [facility] Metoprolol Succinate ER 25 MG Tablet Extended Re lease 24 Hour 10/03/2015 Provider: Diagnosis: Last Documented On 6 12:59PM By Laxmi Lopez [facility], [facility] Pravastatin Sodium 10 MG Tablet 10/03/2015 Provider: Diagnosis: Last Documented On 6 12:59PM By Laxmi Hoover ; [facility], [facility] Ecotrin Low Strength 81 MG Tablet Delayed Release 09/20 Provider: Diagnosis: Last Documented On 6 12:59PM By Laxmi Hoover ; [facility], [facility] EQL Vitamin D Gummies Child 400 UNIT Tablet Chewable 0 10/03/2015 Provider: Diagnosis: Last Documented On 6 1:00PM By Laxmi Hoover ; [facility], [facility] Co Q 10 10 MG Capsule 10/03/2015 Provider: Diagnosis: Last Documented On 6 1:00PM By Laxmi Hoover ; [facility], [facility] Oscal 500/200 D-3 500-200 MG-UNIT Tablet 10/03/2015 Provider: Diagnosis: Last Documented On 6 1:00PM By Laxmi Hoover ; [facility], [facility] ChoiceFul Multivitamin Capsule 10/03/2015 Provider: Diagnosis: Last Documented On 6 1:01PM By Laxmi Hoover ; [facility], [facility] Percocet 5-325 MG Tablet 10/03/2015 Provider: Diagnosis: Last Documented On 6 1:01PM By Laxmi Hoover ; [facility], [facility] Welchol 625 MG Tablet 10/03/2015 Provider: Diagnosis: Last Documented On 6 1:01PM By Laxmi Hoover ; [facility], [facility] SM Vitamin B12 TR 1000 MCG Tablet Extended Release Provider: Diagnosis: Last Documented On 6 12:58PM By Laxmi Hoover ; [facility], [facility] Januvia 25 MG Tablet 10/03/2015 Provider: Diagnosis: Last Documented On 6 12:58PM By Laxmi Hoover ; [facility], [facility] Actos 15 MG Tablet 10/03/2015 Provider: Diagnosis: Last Documented On 6 12:58PM By Laxmi Hoover ; [facility], [facility] GlyBURIDE-MetFORMIN 1.25-250 MG Tablet 10/03/2015 Pr ovider: Diagnosis: Last Documented On 6 12:57PM By Laxmi Hoover ; [facility], [facility] CO-Q 10 [place]-3 Fish Oil Capsule 10/03/2015 Provider : Diagnosis: Last Documented On 6 12:57PM By Laxmi Hoover ; [facility], [facility] Past Medications on file Cyclobenzaprine HCl 5 MG Tablet 05/21/2016 - 06/20/2016 Provider: Maurisio thomas MD Diagnosis: three times a day Last Documented On 7 9:38AM By Rohan Green ; [facility], [facility] Cyclobenzaprine HCl 5 MG Tablet 04/04/2016 - 05/04/2016 Provider: Maurisio thomas MD Diagnosis: three times a day Last Documented On 6 11:13AM By Elysia Schroeder ; [facility] Percocet 5-325 MG Tablet 11/25/2015 - 12/05/2015 Provider: Maurisio Izquierdo MD Diagnosis: Displaced commin uted fx shaft of humerus, right arm, init 1-2 po q 4-6h prn pain Last Documented On 6 9:40AM By Laxmi Hoover ; [facility], [facility] Bactrim DS 800-160 MG Tablet 10/11/2015 - 10/18/2015 Provider: Maurisio thomas MD Diagnosis: Displ commnt fx shaft of humer, r arm, 7thD twice a day Last Documented On 6 11:32AM By Laxmi Hoover ; [facility] Percocet 5-325 MG Tablet 10/05/2015 - 10/15/2015 Provider: Maurisio Izquierdo MD Diagnosis: Displaced commin uted fx shaft of humerus, right arm, init 1-2 po q 4-6h prn pain Last Documented On 6 1:30PM By Laxmi Hoover ; [facility], [facility] Medications Administered Includes: Administered Medications from this encounter No Administered Medications Recorded Vital Signs Includes: Vital Signs from this encounter Vital Name 09/02/2023 10:40A Height (in) 65 Weight (lb) 163 Body Mass Index 27.1 Body Surface Area 1.8 Note: ab Last Documented: On 09/02/2023 10:40A M ; [facility], [facility] Results Includes: Results discussed during this encounter No Results Recorded For Specified Dates History of Present Illness Includes: History of Present Illness from this encounter HPI Halley Stallworth is a 78 year old female. - Allergy list reviewed - Problem list reviewed - Medication list reviewed - Patient pain level from 1-10: 6 - No previous treatment. - - Review of medications documented Social History Description Last Updated No recent change in diet 09/02/2023 Last Documented On 4 9:34AM ; [facility], [facility] Not a current smoker. 09/02/2023 Last Documented On 4 9:34AM ; [facility], [facility] Not using alcohol 09/02/2023 Last Documented On 4 9:34AM ; [facility], [facility] Not using drugs 09/02/2023 Last Documented On 4 9:34AM ; [facility], [facility] Caffeine use 10/03/2015 Last Documented On 4 10:38AM ; [facility], [facility] Not exercising regularly 10/03/2015 Last Documented On 4 10:38AM ; [facility], [facility] Recent change in diet 10/03/2015 Last Documented On 4 10:38AM ; [facility], [facility] Smoking Status Unknown Procedures and Surgical History Includes: Procedures from this encounter Procedures Code Diagnosis Performing Provider Service Location Service Date DRAIN/INJECT, JOINT/BURSA (RIGHT) Unilateral primary osteoarthritis, right knee Gonzalo Hall PA-C [facility] 09/02/2023 Last Documented On 4 6:44PM ; [facility] X-RAY EXAM KNEE 4 OR MORE (RIGHT) 46394 Unilateral primary osteoarthritis, right knee Gonzalo Hall PA-C [facility] 09/02/2023 Last Documented On 4 6:44PM ; [facility] an X-ray was performed [id number] Last Documented On 4 11:09AM ; [facility] Surgical History Last Updated History of heart surgery 10/03/2015 Last Documented On 4 10:38AM ; [facility] History of hernia repair 10/03/2015 Last Documented On 4 10:38AM ; [facility], [facility] Medical History Includes: Medical History addressed during this encounter Description Last Updated History of Hypertension 09/02/2023 Last Document[facility] 4 9:34AM ; [facility] A recent immunization for pneumococcal p neumonia 03/06/2015 10/03/2015 Last Documented On 4 10:38AM ; [facility], [facility] Arthritic joint problems 10/03/2015 Last Documented On 4 10:38AM ; [facility], [facility] Gallbladder disease 10/03/2015 Last Documented On 4 10:38AM ; [facility], [facility] History of diabetes mellitus 10/03/2015 Last Documented On 4 10:38AM ; [facility], [facility] Intermittent hypertension 10/03/2015 Last Documented On 4 10:38AM ; [facility], [facility] Family History Includes: Family History addressed during this encounter Description Last Updated Family history of cancer mother, father, sister 10/03/2015 Last Documented On 4 10:38AM ; [facility] Family history of diabetes mellitus moth er, father, brother, sister 10/03/2015 Last Documented On 4 10:38AM ; [facility] Family history of hypertension mother, f ather 10/03/2015 Last Documented On 4 10:38AM ; [facility] Paternal history of family history of he art disease father 10/03/2015 Last Documented On 4 10:38AM ; [facility], [facility] Review of Systems Includes: Review of Systems from this encounter Systemic: Not feeling tired, no recent weight [...] Immunologic: No complaint of seasonal allergic reaction. Mental Status Includes: Mental Status from this encounter Description No anxiety Functional Status Includes: Functional Status from this encounter No Functional Status Recorded Physical Exam Includes: Physical Exam from this encounter Allergies Includes: Active Allergies No Known Allergies Encounters Encounter Provider Location Date Check-In Time Check-Out Time Diagnosis Physician Specified Gonzalo Hall PA-C [facility] 09/02/19 10:04AM 11:17AM Overweight Insurance Includes: Active Insurance Policies Plan Name Member ID Group # Subscriber Relationship Effect anahi Dates - [employer] [id number] Halley Stallworth Self 04/22/2015 - Unknown Clinical Notes Includes: Clinical Notes from this encounter * Progress note Date Encounter Last Documented by 09/02/2023 Physician Specified Last maggi dobbs on 09/13/2023; 9:34 AM, Gonzalo Hall PA-C; [facility], [facility] Active Problems & Conditions - Joint [...] 0 days, 0 refills - CO-Q 10 [place]-3 Fish Oil Capsule once a day 0 [...] knee exam Skin clean, dry and intact [id number] knee swelling, mild effusion Knee flexion contracture [...] omissions. Care Team - KYA MOJICA - FEEDER OPERATOR
[2024-03-03 13:57] VITALS: BMI 26.6
[2024-03-03 14:15] LABS: Albumin Level 4.8 g/dl (3.5-5.0); Calcium 9.6 mg/dl (8.4-10.2); Creatinine Clearance Estimated 56 mL/min (50-200); Estimated Glomerular Filt Rate 70 ml/min (>60); GFR (African American) 84 ML/MIN (>60)
[2024-03-03 14:25] VITALS: BP 170/72; PULSE 56; RESP 18; O2SAT 99
[2024-03-03] MEDS: ZOLEDRONIC ACID/MANNITOL-WATER 5 MG/100 ML PGGYBK.BTL 400 MG IV (14:25)
[2024-03-03] MEDS: 0.9 % SODIUM CHLORIDE 50 ML 100 ML IV (14:36)
[2024-03-03 14:51] VITALS: BP 178/81; PULSE 61; RESP 18; O2SAT 98
== END 2024-03-03 14:51 | disposition home or self-care (01) ==
LOC: INF 13:51
PROVIDERS: PCP Family Medicine; Visit Provider Family Medicine
DX: M85.80 Other specified disorders of bone density and structure, unspecified site (principal)
CPT/HCPCS: 82040; 82310; 82565; 96374; J3489

== ENCOUNTER 2024-07-17 13:00 | Outpatient (RCR) | payer MEDICARE, SELFPAY | END 2024-07-17 23:59 | disposition home or self-care (01) | LOC: PT 13:00 | PROVIDERS: PCP Family Medicine; Visit Provider Physician Assistant | DX: Z96.651 Presence of right artificial knee joint (principal) | CPT/HCPCS: 97110; 97140; 97163; 97530 ==

== ENCOUNTER 2024-08-17 11:00 | Outpatient (RCR) | payer MEDICARE, SELFPAY | END 2024-08-17 23:59 | disposition home or self-care (01) | LOC: PT 11:00 | PROVIDERS: PCP Family Medicine; Visit Provider Physician Assistant | DX: Z96.651 Presence of right artificial knee joint (principal) | CPT/HCPCS: 97110; 97140; 97530 ==

== ENCOUNTER 2024-09-09 11:00 | Outpatient (RCR) | payer MEDICARE, SELFPAY | END 2024-09-09 23:59 | disposition home or self-care (01) | LOC: PT 11:00 | PROVIDERS: PCP Family Medicine; Visit Provider Physician Assistant | DX: Z47.89 Encounter for other orthopedic aftercare (principal); Z96.651 Presence of right artificial knee joint | CPT/HCPCS: 97110; 97530 ==

== ENCOUNTER 2024-09-23 08:50 | Day surgery (SDC) | payer MEDICARE, SELFPAY ==
--- NOTE | 2024-07-27 14:43 | SUR.PREOP ---
attempted to preop pt, no answer. voicemail left with callback number
[2024-09-21 17:10] VITALS: BMI 25.8
[2024-09-23 09:10] VITALS: BP 155/67; PULSE 67; RESP 17; TEMP 36.1; O2SAT 98
[2024-09-23] MEDS: LACTATED RINGERS 1000ML 1,000 ML 50 ML IV (09:16)
--- NOTE | 2024-09-23 09:38 | EXP.ANES.CKL ---
[facility] Disclaimer: The information contained in this section may have been updated after the patient was seen, as this information can be updated by other users. Medical History Cataracts, both eyes GERD (gastroesophageal reflux disease) Cancer Hyperlipemia Hypertension Diabetes mellitus Surgical History History of right knee joint replacement H/O tubal ligation Family History Other No significant family history Social History Smoking Status: Never smoker second hand exposure: No alcohol intake: never substance use type: denies use current occupational status: retired Travel in the last 8 weeks?: None household members: spouse housing: house current occupational exposures/hazards: No caffeine: Yes Have you lived/traveled outside US in past 30 days?: No Contact w/someone who lives/traveled outside US past 30 days?: No Exposure to someone with infectious disease in past 14 days?: No Do you have a fever (greater than 100.4 F or 38 C)?: No Have you tested positive for COVID-19?: No Exposed to someone with COVID-19 in past 14 days?: No Do you have a sore throat?: No Do you have a cough?: No Do you have any weakness?: No Do you have any diarrhea?: No Are you experiencing any unusual bleeding?: No Do you have any muscle aches/pain?: No Do you have any abdominal pain?: No Are you experiencing loss of taste or smell?: No [facility] Anesthesia Checklist Patient Identification Patient Identification: Arm Band and Verbal (Name & ) Structural Data Admitted From: Home Planned Operative Procedure/s: EGD Verified Documents: Surgical Consent NPO Status Verified Time NPO: 00:00 Chart Verification Results Verified: None Additional verifications Fingerstick Blood Glucose: 88 Anesthesia Reactions: No Hx Blood Transfusions: No Blood Transfusion Reaction: No Airway Assessment Mallampati Score:: Class II C-Spine Mobility Assessed: Yes TMJ Mobility Assessed: Yes Dentition: Good Dentition Neurological Assessment Level of Consciousness: Awake, Alert and Appropriate Hx Seizures: No Numbness or tingling in extremities: No Anesthesia Plan Anesthesia Plan: Verified ASA Class: II Anesthesia Type: MAC
--- NOTE | 2024-09-23 10:37 | EXP.HP ---
History of Present Illness *Admission Date: 09/23/24 *Reason for visit:: Dysphagia/GERD *History of present illness: Mrs. Stallworth is a 79-year-old female who is here for diagnostic EGD because of dysphagia/swallowing difficulty. She also has GERD. She did have esophageal dilation previously several years ago. The examination is deemed medically necessary for diagnostic EGD. The patient has been seen, interviewed and examined prior to the procedure by both myself and the anesthesia provider. [facility] Disclaimer: The information contained in this section may have been updated after the patient was seen, as this information can be updated by other users. Medical History (Updated 09/23/24 @ 10:39 by Diego Grimaldo II, MD) Cataracts, both eyes GERD (gastroesophageal reflux disease) Cancer Hyperlipemia Hypertension Diabetes mellitus Surgical History History of right knee joint replacement H/O tubal ligation Family History Other No significant family history Social History Smoking Status: Never smoker second hand exposure: No alcohol intake: never substance use type: denies use current occupational status: retired Travel in the last 8 weeks?: None household members: spouse housing: house current occupational exposures/hazards: No caffeine: Yes Have you lived/traveled outside US in past 30 days?: No Contact w/someone who lives/traveled outside US past 30 days?: No Exposure to someone with infectious disease in past 14 days?: No Do you have a fever (greater than 100.4 F or 38 C)?: No Have you tested positive for COVID-19?: No Exposed to someone with COVID-19 in past 14 days?: No Do you have a sore throat?: No Do you have a cough?: No Do you have any weakness?: No Do you have any diarrhea?: No Are you experiencing any unusual bleeding?: No Do you have any muscle aches/pain?: No Do you have any abdominal pain?: No Are you experiencing loss of taste or smell?: No Other Medical History Have you received the Flu Vaccine for this season: Yes Have you received the Pneumonia Vaccine: Yes Review of Systems Review of Systems Review of systems (narrative): Negative *Cardiovascular Comments: Negative *Gastrointestinal Comments: Negative *Genitourinary Comments: Negative *Musculoskeletal Comments: Negative *Neurologic Comments: Negative Meds Home Medications and Allergies Home Medications ?Medication ?Instructions ?Recorded ?Confirmed ?Type Lactobacills gasseri-Bifidobac 1 cap PO DAILY Supplement 07/10/17 09/23/24 History bifidum,longum 1.5 billion cell capsule ([employer]) calcium carbonate 500 mg PO BID Supplement 07/10/17 09/23/24 History coenzyme Q10 75 mg capsule (Ultra 75 mg PO DAILY Supplement 07/10/17 09/23/24 History CoQ10) colesevelam 625 mg tablet (WelChol) 1,250 mg PO BID Cholesterol 07/10/17 09/23/24 History empagliflozin 25 mg tablet 25 mg PO QAM sugar 07/10/17 09/23/24 History (Jardiance) metoprolol tartrate 25 mg tablet 12.5 mg PO BID bp 07/10/17 09/23/24 History omega-3 acid ethyl esters 1 gram 2 cap PO BID Supplement 07/10/17 09/23/24 History capsule (Lovaza) pravastatin 40 mg tablet 40 mg PO QHS Cholesterol 07/10/17 09/23/24 History (Pravachol) ramipril 2.5 mg capsule 2.5 mg PO BID bp 07/10/17 09/23/24 History vitamin D3 800 unit-folic acid 1 800 cap PO BID Supplement 07/10/17 09/23/24 History mg-collagen,hydrolys 300 mg capsule multivitamin 1 each PO DAILY Supplement 08/13/17 09/23/24 History aspirin 81 mg tablet,delayed 81 mg PO DAILY heart 04/09/18 09/23/24 History release cyanocobalamin (vitamin B-12) 1,000 mcg PO DAILY Supplement 04/29/19 09/23/24 History 1,000 mcg capsule glimepiride 4 mg tablet 4 mg PO BID Diabetes 04/29/19 09/23/24 History metformin 1,000 mg tablet 1,000 mg PO BID Diabetes 04/29/19 09/23/24 History celecoxib 100 mg capsule 100 mg PO DAILY 01/16/23 09/23/24 History blood sugar diagnostic (Accu-Chek #10 ea 03/20/23 04/08/24 History Shalonda Plus test strips) lancets (Accu-Chek Softclix #100 ea 03/20/23 04/08/24 History Lancets) omeprazole 40 mg capsule,delayed 40 mg PO DAILY #60 caps 04/08/24 09/23/24 Rx release sacrosidase 8,500 unit/mL oral 2 ml PO 6XD #1,080 mL 04/08/24 09/23/24 Rx solution (Sucraid) New Prescriptions to Start Prescriptions: Allergies Allergy/AdvReac Type Severity Reaction Status Date / Time No Known Allergies Allergy Verified 09/23/24 09:05 Exam Data for Last 24 hours Vital signs and Labs for Last 24 Hours: Temp Pulse Resp BP Pulse Ox O2 Del Method 97 F L 67 17 155/67 H 98 Room Air 09/23/24 09:10 09/23/24 09:10 09/23/24 09:10 09/23/24 09:10 09/23/24 09:10 09/23/24 09:10 I & O for Last 24 hours: Intake & Output 09/20/24 09/21/24 09/22/24 09/23/24 23:59 23:59 23:59 23:59 Weight 160 lb *Routine HEENT Exam Head: Present normocephalic Eye: Present EOMI and PERRL ENT: Present mucous membranes moist *Routine Neck Exam Neck: Present supple *Routine Respiratory Exam Respiratory: Present CTA bilaterally *Routine Cardiovascular Exam Cardiovascular: Present RRR *Routine Abdominal Exam Abdominal: Present soft and normoactive bowel sounds; Absent tenderness *Routine Rectal Exam Rectal:: deferred *Routine Genitalia Exam Genitalia:: deferred *Routine Extremities Exam Extremities: Absent cyanosis, clubbing or edema *Routine Skin Exam Skin: Present warm; Absent rash *Routine Neurological Exam Neurological: Present alert and oriented X3 Assessment and Plan *Assessment and plan (1) Dysphagia: Status: Acute Category: Medical Code(s): R13.10 - Dysphagia, unspecified (2) Bloating: Status: Acute Category: Medical Code(s): R14.0 - Abdominal distension (gaseous) (3) Sucrase-isomaltase deficiency: Status: Acute Category: Medical Code(s): E74.31 - Sucrase-isomaltase deficiency (4) GERD (gastroesophageal reflux disease): Status: Acute Category: Medical Code(s): K21.9 - Gastro-esophageal reflux disease without esophagitis Plan A/P: 1. Dysphagia/swallowing difficulty and GERD is the preprocedural diagnosis. The patient also has some bloating and sucrase isomaltase deficiency. The patient will be anesthetized/sedated using MAC sedation. The patient has been seen and examined. Cardiac and lung assessment prior to the examination is stable. Proceed with planned EGD.
--- NOTE | 2024-09-23 10:52 | P.PCN_ITS ---
[facility] Procedure Note Date: 09/23/24 Time: 11:00 Procedure Note:: Upper Endoscopy Procedure Report: Esophagogastroduodenoscopy with cold biopsies and TTS balloon dilation Endoscopost: Diego Grimaldo II, MD Referring Physician: Mateusz Estevez MD Date of Procedure: September 23, 2024 Equipment: Olympus GIF 190 standard upper endoscope Sedation: MAC sedation Indications: Mrs. Stallworth is a 79-year-old female with dysphagia here for diagnostic/therapeutic upper endoscopy. She does have a history of GERD, IBS and sucrase isomaltase deficiency. She does have a lot of bloating and gassiness. She has done very well with low sucrose diet and Sucraid. She does struggle some with constipation but will alternate to explosive diarrhea. She does report some belching and recurrence of dysphagia with food getting hung up several times. She did have esophageal dilation several years ago. Her mother had colon cancer in her 60s but she reports no family history of esophageal cancer or weight loss. She has had no melena. Procedure: Prior to the procedure, a history and physical exam was performed, and patient's medications and allergies were reviewed. The risks, benefits and alternatives of the sedation and procedure were discussed with the patient. All questions were answered and informed consent was obtained. The patient was brought to the procedure room. Patient identification and proposed procedure were verified by the physician and the nurse. The patient was placed in a left lateral decubitus position and the scope was passed under direct vision. Throughout the procedure, the patient's blood pressure, pulse, and oxygen saturations were monitored continuously. The upper GI endoscopy was accomplished without difficulty. The patient tolerated the procedure well. Findings: The scope was passed directly into the upper esophagus and advanced to the fourth portion of duodenum and proximal jejunum. Cold biopsies were taken x 2 of the proximal jejunum for disaccharidase assay. The proximal jejunum, post bulbar duodenum, ampulla and duodenal bulb were normal with normal mucosa and conniventes. The scope was withdrawn through a normal duodenal bulb and pylorus into the stomach. There was some bile reflux with linear reactive gastropathy of the antrum and body of the stomach. Biopsies were taken from the lesser curvature. Upon retroflexion there was a small 1 to 2 cm sliding hiatal hernia. The scope was then withdrawn into the esophagus. There was a distal Schatzki's ring. There were tertiary contractions and evidence of moderate esophageal dysmotility. There was no evidence of reflux esophagitis or Connelly's. The entire esophagus was dilated to 60 Vietnamese/20 mm with a TTS hydrostatic balloon. There was fracturing of the Schatzki's ring. The remainder of the esophageal mucosa was normal. Impression: 1. Schatzki's ring dilated to 20 mm 2. Nonerosive GERD with moderate esophageal dysmotility and very small sliding 1 to 2 cm hiatal hernia 3. Bile reflux with mild linear reactive gastropathy Plan: I will discussed the findings with the patient and family and follow-up biopsies and disaccharidase assay. I would continue the fiber bowel regimen (combined MiraLAX plus Citrucel).
[2024-09-23 11:05] VITALS: BP 103/58; PULSE 65; RESP 16; TEMP 36.2; O2SAT 93
[2024-09-23 11:15] VITALS: BP 89/49; PULSE 63; RESP 17; O2SAT 98
[2024-09-23 11:25] VITALS: BP 109/59; PULSE 60; RESP 18; O2SAT 98
[2024-09-23 11:35] VITALS: BP 138/63; PULSE 62; RESP 18; O2SAT 99
[2024-09-23 16:23] LABS: POC Glucose,Bedside 88 (70-110)
[2024-09-28 15:10] LABS: Disclaimer Notes (.); Interpretation Notes (.); Lactase 74.12 (>/= 14.0); Maltase 308.34 (>/= 110.0); Palatinase 19.58 (>/= 8.5); Reference Notes (.); Sucrase 80.18 (>/= 25.0)
== END 2024-09-23 11:45 | disposition home or self-care (01) ==
PROVIDERS: PCP Family Medicine; Visit Provider Internal Medicine Gastroenterology
PROC: 0DJ08ZZ Inspection of Upper Intestinal Tract, Via Natural or Artificial Opening Endoscopic (ICD-10-PCS; CPT 43239; principal; 2024-09-23 10:30)
DX: K22.2 Esophageal obstruction (principal); K21.9 Gastro-esophageal reflux disease without esophagitis; K22.4 Dyskinesia of esophagus; K44.9 Diaphragmatic hernia without obstruction or gangrene; R13.10 Dysphagia, unspecified; R14.0 Abdominal distension (gaseous); E74.31 Sucrase-isomaltase deficiency; K31.89 Other diseases of stomach and duodenum; I10 Essential (primary) hypertension; E78.5 Hyperlipidemia, unspecified; E11.9 Type 2 diabetes mellitus without complications; Z79.899 Other long term (current) drug therapy; Z79.82 Long term (current) use of aspirin; Z79.84 Long term (current) use of oral hypoglycemic drugs
CPT/HCPCS: 43239; 43249; 82657; 82962; 88305; C1726; J7120

== ENCOUNTER 2024-09-30 14:55 | Outpatient (CLI) | payer MEDICARE, SELFPAY ==
--- OUTSIDE RECORDS SUMMARY | 2024-08-03 15:00 | XMS_ITS | Encounter Summary ---
Author Organization [facility] [address] Care Team Providers Care Quick Mixer Operator Name Role Phone Mateusz Estevez MD Primary Care Provider [phone] Reason for Visit * Reason Comments Diabetes Encounter Details Date Type Department Care Team (Late st Contact Info) Description 08/03/2024 3:00 PM EDT Office Visit [facility] [place] [address] [facility] [address] [place] [address] Reno Suggs MD [address] [place] [address] Type 2 diabetes mellitus without complication, without long-term current use of insulin (HCC) (Primary Dx); Hypertension associated with diabetes (HCC) Social History Tobacco Use Types Packs/Day Years Used Date Smoking Tobacco: Never Smokeless Tobacco: Never Tobacco Cessation:Counseling Given: Not Answered Comments Unknown Sex and Gender Information Value Date Recorded Sex Assigned at Not on file Legal Sex Female 1:19 PM EST Gender Identity Not on file Sexual Orientation Not on file documented as of this encounter Last Filed Vital Signs Vital Sign Reading Time Taken Comments Blood Pressure 126/62 08/03/2024 3:22 PM EDT Pulse 60 08/03/2024 3:22 PM EDT Temperature - - Respiratory Rate 16 08/03/2024 3:22 PM EDT Oxygen Saturation - - Inhaled Oxygen Concentration - - Weight 72.3 kg (159 lb 4.8 oz) 08/03/2024 3:22 P M EDT Height 167.6 cm (5' 6 ) 08/03/2024 3:22 PM EDT Body Mass Index 25.71 08/03/2024 3:22 PM EDT documented in this encounter Ordered Prescriptions Prescription Sig Dispense Quantity Refills Last Filled Start Date End Date metFORMIN (GLUCOPHAGE) 1,000 mg Oral TabletIndications :Type 2 diabetes mellitus without complication, without long-term current use of insulin (HCC) Take 1 Tablet by mouth 2 times daily. 180 Tablet 08/03/2024 Insulin [place], Disposable, (ELO PEN NEEDLE) 32 [facility] x 5/[facility] :Type 2 diabetes mellitus without complication, without long-term current use of insulin (HCC) Subcutaneous (Inject under the skin) 1 Each daily. To be used with insulin pen. 50 Each 3 08/03/2024 insulin glargine (LANTUS SOLOSTAR U-100 INSULIN) 100 unit/mL (3 mL) SubQ Insulin Pen Subcutaneous (Inject under the skin) 10 Units every evening. 15 mL 1 08/03/2024 glimepiride (AMARYL) 4 mg Oral TabletIndications :Type 2 diabetes mellitus without complication, without long-term current use of insulin (HCC) Take 1 Tablet by mouth 2 times daily. 180 Tablet 3 08/03/2024 empagliflozin (JARDIANCE) 25 mg Oral TabletIndications :Type 2 diabetes mellitus without complication, without long-term current use of insulin (HCC) Take 1 Tablet by mouth daily. 90 Tablet 3 08/03/2024 ACCU-CHEK SOFTCLIX LANCETS [facility] USE DIRECTED TO TEST BLOOD SUGAR ONCE DAILY 100 Each 1 08/03/2024 documented in this encounter Progress Notes * Sheri Browne MA - 08/03/2024 3:00 PM EDT Pt checks BS once daily. A1C: 6.7% * Reno Suggs MD - 08/03/2024 3:00 PM EDT Subjective Subjective: Patient ID: Halley Stallworth is a 79 y.o. female. Chief Complaint Patient presents with Diabetes HPI: Halley returns for follow up of Type 2 diabetes. She had successful right TKR since last visit and has recovered well and feeling much better. She hasn't had any problems with hypoglycemia since last visit. She reports FBG in the 124 or lower range . PMSFH: Past Medical History: Diagnosis Date Diabetes mellitus (HCC) Patients past medical, family and social histories were reviewed and updated. There were no changesexcept as noted. Review of Systems Objective Outpatient Medications Marked as Taking for the 08/03/24 encounter (Office Visit) with Reno Suggs MD Medication Sig Dispense Refill ACCU-CHEK LEXI PLUS TEST STRP Misc Strip Use as directed to test BS once daily. 100 Each 3 ACCU-CHEK SOFTCLIX LANCETS Misc Misc USE DIRECTED TO TEST BLOOD SUGAR ONCE DAILY 100 Each 1 [DISCONTINUED] ACCU-CHEK SOFTCLIX LANCETS Misc Misc USE DIRECTED TO TEST BLOOD SUGAR ONCE DAILY 100 Each 1 aspirin 81 mg Oral Tablet, Chewable Take 81 mg by mouth daily. Blood Sugar Diagnostic (ACCU-CHEK GUIDE TEST STRIPS) Misc Strip 1 Strip by Misc.(Non-Drug; Combo Route) route daily. 100 Strip 11 calcium carbonate (OS-FLORENCE) 500 mg calcium (1,250 mg) Oral Tablet Take 1 Tablet by mouth 2 times daily. celecoxib (CELEBREX) 100 mg Oral Capsule Take 100 mg by mouth daily. Cholecalciferol, Vitamin D3, 50 mcg (2,000 unit) Oral Capsule Take 1 Capsule by mouth 2 times daily. Coenzyme Q10 100 mg Oral Capsule Take 1 Tab by mouth daily. cyanocobalamin 1,000 mcg Oral Tablet Take 1,000 mcg by mouth daily. empagliflozin (JARDIANCE) 25 mg Oral Tablet Take 1 Tablet by mouth daily. 90 Tablet 3 [DISCONTINUED] empagliflozin (JARDIANCE) 25 mg Oral Tablet TAKE ONE TABLET BY MOUTH ONCE A DAY 90 Tablet 0 GEMTESA 75 mg Oral Tablet Take 75 mg by mouth daily. glimepiride (AMARYL) 4 mg Oral Tablet Take 1 Tablet by mouth 2 times daily. 180 Tablet 3 [DISCONTINUED] glimepiride (AMARYL) 4 mg Oral Tablet TAKE ONE TABLET BY MOUTH 2 TIMES A DAY 180 Tablet 0 insulin glargine (LANTUS SOLOSTAR U-100 INSULIN) 100 unit/mL (3 mL) SubQ Insulin Pen Subcutaneous (Inject under the skin) 10 Units every evening. 15 mL 1 [DISCONTINUED] insulin glargine (LANTUS SOLOSTAR U-100 INSULIN) 100 unit/mL (3 mL) SubQ Insulin PenSubcutaneous (Inject under the skin) 10 Units every evening. 15 mL 1 Insulin [place], Disposable, (ELO PEN NEEDLE) 32 gauge x 5/32 Misc Needle Subcutaneous (Inject under the skin) 1 Each daily. To be used with insulin pen. 50 Each 3 [DISCONTINUED] Insulin [place], Disposable, (ELO PEN NEEDLE) 32 gauge x 5/32 Misc Needle Subcutaneous (Inject under the skin) 1 Each daily. To be used with insulin pen. 50 Each 3 L gasseri/B bifidum/B longum (Comply365 ORAL) Take 1 Tablet by mouth daily. metFORMIN (GLUCOPHAGE) 1,000 mg Oral Tablet Take 1 Tablet by mouth 2 times daily. 180 Tablet 0 [DISCONTINUED] metFORMIN (GLUCOPHAGE) 1,000 mg Oral Tablet TAKE ONE TABLET BY MOUTH 2 TIMES A DAY 180 Tablet 0 Methylcellulose, with Sugar, (CITRUCEL, SUCROSE,) Oral Powder Take by mouth daily. metoprolol (LOPRESSOR) 25 mg Oral Tablet Take 0.5 Tabs by mouth 2 times daily. multivit with minerals/lutein (MULTIVITAMIN 50 PLUS ORAL) Take 1 Each by mouth daily. omega-3 acid ethyl esters (LOVAZA) 1 gram Oral Capsule Take 2 Caps by mouth 2 times daily. omeprazole (PRILOSEC) 20 mg Oral Capsule, Delayed Release(E.C.) Take 1 Cap by mouth daily. polyethylene glycol (GLYCOLAX) 17 gram/dose Oral Powder Take 17 g by mouth daily. pravastatin (PRAVACHOL) 40 mg Oral Tablet Take 1 Tab by mouth daily. ramipriL (ALTACE) 2.5 mg Oral Capsule Take 1 Cap by mouth 2 times daily. SUCRAID 8,500 unit/mL Oral Solution WELCHOL 625 mg Oral Tablet Take 2 Tabs by mouth 2 times daily. Objective: DATA REVIEW: LABS Recent and historical labs reviewed in chart, results discussed with patient. DIABETES CGM Glucose range reported to be 56-118 with most readings below 100. Lab Results Component Value Date HGBA1C 6.7 (A) 08/03/2024 HGBA1C 7.2 (A) 02/20/2024 HGBA1C 8.1 (A) 11/13/2023 RENAL Lab Results Component Value Date CREATININE 0.7 11/05/2023 No results found for: MICROALBCR LIPIDS No components found for: LDL No results found for: LDLCALC Lab Results Component Value Date LDLDIRECT 66.02 05/09/2023 Lab Results Component Value Date HDL 70 11/05/2023 No results found for: TRIG Lab Results Component Value Date CHOLESTEROL 165 11/05/2023 OTHER Lab Results Component Value Date TSH 2.870 11/05/2023 FREET4 1.05 11/09/2022 Lab Results Component Value Date AOCH01PX 49.9 11/05/2023 Lab Results Component Value Date [id number] 953 11/05/2023 Vitals: 08/03/24 1522 BP: 126/62 BP Location: Left arm Patient Position: Sitting Pulse: 60 Resp: 16 Weight: 159 lb 4.8 oz (72.3 kg) Height: 5' 6 (1.676 m) Body mass index is 25.71 kg/m??. Physical Exam Vitals and nursing note reviewed. Cardiovascular: Pulses: Dorsalis pedis pulses are 2+ on the right side and 2+ on the left side. Posterior tibial pulses are 2+ on the right side and 2+ on the left side. Musculoskeletal: Left foot: Bunion present. Feet: Right foot: Protective Sensation: 10 sites tested. 10 sites sensed. Skin integrity: Skin integrity normal. Toenail Condition: Right toenails are normal. Left foot: Protective Sensation: 10 sites tested. 10 sites sensed. Skin integrity: Skin integrity normal. Toenail Condition: Left toenails are normal. Assessment and Plan: Diagnoses and all orders for this visit: Type 2 diabetes mellitus without complication, without long-term current use of insulin (HCC) (Chronic) - POCT GLYCATED HEMOGLOBIN, TOTAL - empagliflozin (JARDIANCE) 25 mg Oral Tablet; Take 1 Tablet by mouth daily. Dispense: 90 Tablet; Refill: 3 - glimepiride (AMARYL) 4 mg Oral Tablet; Take 1 Tablet by mouth 2 times daily. Dispense: 180 Tablet; Refill: 3 - Insulin [place], Disposable, (ELO PEN NEEDLE) 32 gauge x 5/32 Misc Needle; Subcutaneous (Injectunder the skin) 1 Each daily. To be used with insulin pen. Dispense: 50 Each; Refill: 3 - metFORMIN (GLUCOPHAGE) 1,000 mg Oral Tablet; Take 1 Tablet by mouth 2 times daily. Dispense: 180 Tablet; Refill: 0 Hypertension associated with diabetes (HCC) (Chronic) Other orders - ACCU-CHEK SOFTCLIX LANCETS Misc Misc; USE DIRECTED TO TEST BLOOD SUGAR ONCE DAILY Dispense: 100 Each; Refill: 1 - insulin glargine (LANTUS SOLOSTAR U-100 INSULIN) 100 unit/mL (3 mL) SubQ Insulin Pen; Subcutaneous (Inject under the skin) 10 Units every evening. Dispense: 15 mL; Refill: 1 Assessment and Recommendations: 1. Type 2 diabetes with hyperglycemia. Her HbA1c is much better at 6.7%. She is no longer having hypoglycemia. I recommend continuing Lantus to 8 units. 2. Hypertension controlled with ARB. Her eGFR and UACR are normal. 3. Hypercholesterolemia treated with statin is at goal with LDL < 70. 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 5. Osteopenia managed by Dr. Estevez with Reclast every other year. Return to office: Return in about 6 months (around 02/02/2025) for TYpe 2 diabetes. documented in this encounter Plan of Treatment Upcoming Encounters Date Type Department Care Team (Late st Contact Info) Description 02/03/2025 10:45 AM EDT Office Visit [facility] [place] [address] [address] Reno Suggs MD [address] [place] [address] documented as of this encounter Procedures Procedure Name Priority Date/Time Associated Diagnosis Comments POCT GLYCATED HEMOGLOBIN, TOTAL Routine 08/03/2024 3:24 PM EDT Type 2 diabetes mellitus without complication, without long-term current use of insulin (HCC) documented in this encounter Results * (ABNORMAL) POCT GLYCATED HEMOGLOBIN, TOTAL (08/03/2024 3:24 PM EDT) Hemoglobin A1C 6.7(A) 4 - 6 % SEP OFFICE Lot Number SEP OFFICE Expiration Date SEP OFFICE SeriAl # SEP OFFICE 08/03/2024 3:24 PM EDT us Reno Suggs MD POINT OF CARE TEST ORDERABLES Final Result SEP OFFICE documented in this encounter Visit Diagnoses Diagnosis Type 2 diabetes mellitus without complication, without long-term current use of insulin (HCC)- Primary Hypertension associated with diabetes (HCC) Type II or unspecified type diabetes mellitus with other specified manifestations, not stated as uncontrolled documented in this encounter Discontinued Medications Medication Sig Discontinue Reason Start Date End Da te Insulin [place], Disposable, (ELO PEN NEEDLE) 32 gauge x 5/32 Misc NeedleIndications:Typ e 2 diabetes mellitus without complication, without long-term current use of insulin (HCC) Subcutaneous (Inject under the skin) 1 Each daily. To be used with insulin pen. Reorder 09/25/2023 08/03/2024 insulin glargine (LANTUS SOLOSTAR U-100 INSULIN) 100 unit/mL (3 mL) SubQ Insulin Pen Subcutaneous (Inject under the skin) 10 Units every evening. Reorder 02/20/2024 08/03/2024 ACCU-CHEK SOFTCLIX LANCETS [facility] Misc USE DIRECTED TO TEST BLOOD SUGAR ONCE DAILY Reorder 06/02/2024 08/03/2024 empagliflozin (JARDIANCE) 25 mg Oral TabletIndications:Typ e 2 diabetes mellitus without complication, without long-term current use of insulin (HCC) TAKE ONE TABLET BY MOUTH ONCE A DAY 07/22/2024 08/03/2024 metFORMIN (GLUCOPHAGE) 1,000 mg Oral TabletIndications:Typ e 2 diabetes mellitus without complication, without long-term current use of insulin (HCC) TAKE ONE TABLET BY MOUTH 2 TIMES A DAY Reorder 07/22/2024 08/03/2024 glimepiride (AMARYL) 4 mg Oral TabletIndications:Typ e 2 diabetes mellitus without complication, without long-term current use of insulin (HCC) TAKE ONE TABLET BY MOUTH 2 TIMES A DAY Reorder 07/22/2024 08/03/2024 documented as of this encounter Additional Health Concerns Assessment Noted Time A fall risk assessment has been complete d for the patient 02/20/2024 10:20 AM EDT documented as of this encounter Care Teams Quick Mixer Operator Relationship Specialty Start Date End Date Mateusz Estevez MD [address] [place] [id number] PCP - General Family Medicine 05/02/20 documented as of this encounter
--- NOTE | 2024-09-30 14:58 | MM_ITS ---
PROCEDURE INFORMATION: Exam: MG Bilateral Screening 3D Mammography Exam date and time: 09/30/2024 3:08 PM Age: 79 years old Clinical indication: Screening examination TECHNIQUE: Imaging protocol: Bilateral Screening tomosynthesis and 2D mammography including computer-aided detection (CAD) when performed. COMPARISON: 1. MG MM DIG SCREENING MAMM BI W/CAD 09/11/2023 8:22 AM 2. MG MM DIG SCREENING MAMM BI W/CAD 08/23/2022 9:54 AM FINDINGS: MAMMOGRAPHY: Breast composition: There are scattered areas of fibroglandular density. Mass: None. Architectural distortion: None. Calcifications: No suspicious calcifications. Asymmetric density: None. Skin thickening: None. Axillary adenopathy: None. IMPRESSION: No mammographic evidence of malignancy. Annual screening is recommended unless otherwise clinically indicated. ASSESSMENT: BI-RADS Category 1: Negative.
--- OUTSIDE RECORDS SUMMARY | 2024-09-30 14:58 | XMS_ITS ---
Author Organization Unknown TREATMENT PLAN [facility] Start Date Provider Encounter for Check-up [id number] [facility]
--- OUTSIDE RECORDS SUMMARY | 2024-09-30 14:58 | XMS_ITS | Clinical Summary ---
Author Organization [facility] Address [address] [id number] Care Team Providers Care Body Shop Supervisor Name Role Phone Mateusz Estevez MD Primary Care Provider [phone] Social History Tobacco Use Types Packs/Day Years Used Date Smoking Tobacco: Never Assessed Comments Unknown Sex and Gender Information Value Date Recorded Sex Assigned at Not on file Legal Sex Female 6:30 PM EDT Gender Identity Not on file Sexual Orientation Not on file Plan of Treatment Upcoming Encounters Date Type Department Care Team (Late st Contact Info) Description 04/27/2025 11:00 AM EST Ovarian Cancer Screening [facility] Gynecology [address] [place] [address] Health Maintenance Due Date Last Done Comments [facility]-Bone Density Scan 1945 [facility]-Depression Screening 1945 [facility]-Hepatitis C Screening 1945 [facility]-Medicare Annual Wellness (AWV) 1945 [facility]-/Child/Adol SDOH Screenings 1945 [facility]- SDOH Screenings 1964 [facility]-Adult SDOH Screenings 1964 [facility]-DTaP,Tdap,and Td Vaccines (1 - Tdap) 1965 [facility]-Zoster Vaccines (1 of 2) 1996 [id number] Vaccine ( season) 2024 01/31/2024, 01/17/2022, 01/18/2021, Additional history exists [facility]-Influenza Vaccine (Season Ended) 2024 02/22/2022, 02/15/2021, 02/18/2020, Additional history exists [facility]-Pneumococcal Vaccine: 50+ Years Completed 08/21/2022, 03/19/2018 [facility]-RSV Vaccine: 60+ Years or Completed 05/02/2023 HPV Vaccines Aged Out No longer eligi ble based on patient's age to complete this topic [facility]-HIB Vaccines Aged Out No longer e ligible based on patient's age to complete this topic [facility]-Hepatitis A Vaccines Aged Out No longer eligible based on patient's age to complete this topic [facility]-IPV Vaccines Aged Out No longer e ligible based on patient's age to complete this topic [facility]-Rotavirus Vaccines Aged Out No lo nger eligible based on patient's age to complete this topic Insurance [facility] MEDICARE Care Teams Body Shop Supervisor Relationship Specialty Start Date End Date Mateusz Estevez MD [address] [place] [address] PCP - General 08/31/21
--- OUTSIDE RECORDS SUMMARY | 2024-09-30 14:58 | XMS_ITS | Continuity of Care Document ---
Author Organization [facility] Address [address] [place] [address] Phone Care Team Providers Care Greens Laborer Name Role Phone Mateusz Estevez MD Primary Care Provider [phone] Encounters Date Type Department Care Team Description 08/03/2024 3:00 PM EDT Office Visit [facility] [address] [place], [place] [phone] Reno Suggs MD Type 2 diabetes mellitus without complication, without long-term current use of insulin (HCC) (Primary Dx); Hypertension associated with diabetes (HCC) 07/21/2024 Refill [facility] [address] [place] [phone] Reno Suggs MD Medication Refill 06/05/2024 Telephone [facility] [address] [place] [phone] Reno Suggs MD Cancellation 06/01/2024 Refill [facility] [address] [place] [phone] Reno Suggs MD Medication Refill 02/20/2024 Telephone [facility] [address] [place] [address] Mateusz Estevez MD Results 02/20/2024 [place] [address] Reno Suggs MD Type 2 diabetes mellitus without complication, without long-term current use of insulin (HCC) (Primary Dx) 02/20/2024 10:30 [place] [address] Reno Suggs MD Type 2 diabetes mellitus with hyperglycemia, with long-term current use of insulin (HCC) (Primary Dx) 01/07/2024 [place] [address] Reno Suggs MD Medication Refill 12/06/2023 [place] [address] Reno Suggs MD Blood Sugar Problem 11/13/2023 10:45 [place] [address] Reno Suggs MD Type 2 diabetes mellitus without complication, without long-term current use of insulin (HCC) (Primary Dx) 10/10/2023 10:30 AM EDT Office Visit [facility] [address] [place] [address] Whitney Justin, RD,LD,CDE Type 2 diabetes mellitus without complication, without long-term current use of insulin (HCC) (Primary Dx) 09/26/2023 9:00 AM EDT Office Visit [facility] [address] [address] Thalia Wood LPN Type 2 diabetes mellitus without complication, without long-term current use of insulin (HCC) (Primary Dx) 09/25/2023 Orders Only [facility] [address] [place] [address] Reno Suggs MD Type 2 diabetes mellitus without complication, without long-term current use of insulin (HCC) 09/18/2023 Telephone [facility] [address] [facility] [address] [place] [address] Reno Suggs MD Medication Management 05/15/2023 10:45 AM EST Office Visit [place] [address] [facility] [address] [place], [place] [phone] Reno Suggs MD Type 2 diabetes mellitus without complication, without long-term current use of insulin (HCC) (Primary Dx); Hypertension associated with diabetes (HCC); Hyperlipidemia associated with type 2 diabetes mellitus (HCC); Vitamin D deficiency; Vitamin B 12 deficiency 11/12/2022 11:00 AM EDT Office Visit [address] [place] [facility] [address] [place] [address] Reno Suggs MD Type 2 diabetes mellitus without complication, without long-term current use of insulin (HCC) (Primary Dx); Hypertension associated with diabetes (HCC); Vitamin D deficiency; Vitamin B 12 deficiency; Hyperlipidemia associated with type 2 diabetes mellitus (HCC) 11/07/2022 Telephone [facility] [address] [facility] [address] [place] [address] Reno Suggs MD Labs Only 05/14/2022 10:30 AM EST Office Visit [facility] [address] [address] Reno Suggs MD Type 2 diabetes mellitus without complication, without long-term current use of insulin (HCC) 11/08/2021 10:30 AM EDT Office Visit [place] [address] [facility] [address] [place] [phone] Reno Suggs MD Type 2 diabetes mellitus without complication, without long-term current use of insulin (HCC) (Primary Dx) 05/10/2021 10:00 AM EST Office Visit [place] [address] [employer] [facility] [address] [address] Reno Suggs MD Type 2 diabetes mellitus without complication, without long-term current use of insulin (HCC) (Primary Dx); Hypertension associated with diabetes (HCC); Hyperlipidemia associated with type 2 diabetes mellitus (HCC) 04/27/2021 Telephone [place] [address] [address] Reno Suggs MD Medication Refill 11/04/2020 Travel 11/04/2020 10:15 AM EDT Office Visit [place] [address] [employer] [facility] [address] [address] Reno Suggs MD Type 2 diabetes mellitus without complication, without long-term current use of insulin (HCC) (Primary Dx); Hyperlipidemia associated with type 2 diabetes mellitus (HCC); Hypertension associated with diabetes (HCC) 05/02/2020 Travel 05/02/2020 1:45 PM EST Office Visit [address] [employer] [facility] [address] [address] Reno Suggs MD Type 2 diabetes mellitus without complication, without long-term current use of insulin (HCC) (Primary Dx); Hypercholesterolemia; Essential hypertension Allergies No known active allergies Medications ramipriL (ALTACE) 2.5 mg Oral Capsule Take 1 Cap by mouth 2 times daily. 0 Active metoprolol (LOPRESSOR) 25 mg Oral Tablet Take 0.5 Tabs by mouth 2 times daily. 0 Active oxybutynin (DITROPAN-XL) 10 mg Oral Tablet Extended Rel 24 hr Take 1 Tab by mouth daily. 0 Active pravastatin (PRAVACHOL) 40 mg Oral Tablet Take 1 Tab by mouth daily. 0 Active WELCHOL 625 mg Oral Tablet Take 2 Tabs by mouth 2 times daily. 0 Active Coenzyme Q10 100 mg Oral Capsule Take 1 Tab by mouth daily. Active omega-3 acid ethyl esters (LOVAZA) 1 gram Oral Capsule Take 2 Caps by mouth 2 times daily. 0 Active estradioL (ESTRACE) 0.01 % (0.1 mg/gram) Vagl Cream Place 1 g vaginally nightly. 0 Active omeprazole (PRILOSEC) 20 mg Oral Capsule, Delayed Release(E.C.) Take 1 Cap by mouth daily. 1 Active aspirin 81 mg Oral Tablet, Chewable Take 81 mg by mouth daily. Active Cholecalciferol , Vitamin D3, 50 mcg (2,000 unit) Oral Capsule Take 1 Capsule by mouth 2 times daily. Active L gasseri/B bifidum/B longum ([employer] HEALTH ORAL) Take 1 Tablet by mouth daily. Active cyanocobalamin 1,000 mcg Oral Tablet Take 1,000 mcg by mouth daily. Active Methylcellulose , with Sugar, (CITRUCEL, SUCROSE,) Oral Powder Take by mouth daily. Active polyethylene glycol (GLYCOLAX) 17 gram/dose Oral Powder Take 17 g by mouth daily. Active SUCRAID 8,500 unit/mL Oral Solution 2 Active ACCU-CHEK LEXI PLUS TEST STRP Misc Strip Use as directed to test BS once daily. 100 Each 3 3 Active celecoxib (CELEBREX) 100 mg Oral Capsule Take 100 mg by mouth daily. 4 Active calcium carbonate (OS-FLORENCE) 500 mg calcium (1,250 mg) Oral Tablet Take 1 Tablet by mouth 2 times daily. 8 Active multivit with minerals/lutein (MULTIVITAMIN 50 PLUS ORAL) Take 1 Each by mouth daily. 8 Active Blood Sugar Diagnostic (ACCU-CHEK GUIDE TEST STRIPS) Misc Strip 1 Strip [place] [facility] [place]Non-Drug; Combo Route) route daily. 100 Strip 11 4 Active GEMTESA 75 mg Oral Tablet Take 75 mg by mouth daily. 4 Active ACCU-CHEK SOFTCLIX LANCETS [facility] [facility] [place] DIRECTED TO TEST BLOOD SUGAR ONCE DAILY 100 Each 1 5 Active empagliflozin (JARDIANCE) 25 mg Oral TabletIndicatio ns:Type 2 diabetes mellitus without complication, without long-term current use of insulin (HCC) Take 1 Tablet by mouth daily. 90 Tablet 5 Active glimepiride (AMARYL) 4 mg Oral TabletIndicatio ns:Type 2 diabetes mellitus without complication, without long-term current use of insulin (HCC) Take 1 Tablet by mouth 2 times daily. 180 Tablet 3 Active insulin glargine (LANTUS SOLOSTAR U-100 INSULIN) 100 unit/mL (3 mL) SubQ Insulin Pen Subcutaneous (Inject under the skin) 10 Units every evening. 15 mL Active Insulin [place], Disposable, (ELO PEN NEEDLE) 32 gauge x /32 Misc NeedleIndicatio ns:Type 2 diabetes mellitus without complication, without long-term current use of insulin (HCC) Subcutaneous (Inject under the skin) 1 Each daily. To be used with insulin pen. 50 Each Active metFORMIN (GLUCOPHAGE) 1,000 mg Oral TabletIndicatio ns:Type 2 diabetes mellitus without complication, without long-term current use of insulin (HCC) Take 1 Tablet by mouth 2 times daily. 180 Tablet 5 Active Active Problems Problem Noted Date Diagnosed Date Hyperlipidemia associated with type 2 diabetes m ellitus 10/30/2020 Type 2 diabetes mellitus wit hout complication, without long-term current use of insulin 05/02/2020 Hypercholesterolemia 05/02/2020 Hypertension associated with diabetes 05/02/2020 Social History Smoking Status as of 09/30/2024 Tobacco Use Types Packs/Day Years Used Date Smoking Tobacco: Never Assessed Sex and Gender Information Value Date Recorded Sex Assigned at Not on file Legal Sex Female 1:19 PM EST Gender Identity Not on file Sexual Orientation Not on file Last Filed Vital Signs Vital Sign Reading [...] Mass Index 25.71 08/03/2024 3:22 PM EDT Plan of Treatment Upcoming Encounters Date Type Department Care Team (Late st Contact Info) Description 02/03/2025 10:45 AM EDT Office Visit [facility] [place] [address] [facility] [address] [place] [address] Reno Suggs MD [address] [place] [address] Procedures Procedure Name Priority Date/Time Associated Diagnosis Comments POCT GLYCATED HEMOGLOBIN, TOTAL Routine 08/03/2024 3:24 PM EDT Type 2 diabetes mellitus without complication, without long-term current use of insulin (HCC) POCT GLYCATED HEMOGLOBIN, TOTAL Routine 02/20/2024 10:26 AM EDT Type 2 diabetes mellitus with hyperglycemia, with long-term current use of insulin (HCC) POCT GLYCATED HEMOGLOBIN, TOTAL Routine 11/13/2023 11:08 AM EDT Type 2 diabetes mellitus without complication, without long-term current use of insulin (HCC) COMPREHENSIVE METABOLIC PANEL Routine 11/05/2023 HEMOGLOBIN A1C Routine 11/05/2023 LIPID PANEL REFLEX Routine 11/05/2023 THYROID STIMULATING HORMONE Routine 11/05/2023 VITAMIN B12 LEVEL Routine 11/05/2023 MICROALBUMIN/CREATININ E RATIO URINE Routine 11/05/2023 VITAMIN D 25 HYDROXY Routine 11/05/2023 HM DIABETES EYE EXAM Routine 08/19/2023 7:18 AM EDT SCANNED LABS 05/14/2023 11:00 AM EST VITAMIN D 25 HYDROXY Routine 05/09/2023 MICROALBUMIN/CREATININ E RATIO URINE Routine 05/09/2023 COMPREHENSIVE METABOLIC PANEL Routine 05/09/2023 LIPID PANEL REFLEX Routine 05/09/2023 VITAMIN B12 LEVEL Routine 05/09/2023 HEMOGLOBIN A1C Routine 05/09/2023 SCANNED LABS 11/20/2022 5:40 AM EDT HEMOGLOBIN A1C Routine 11/09/2022 COMPREHENSIVE METABOLIC PANEL Routine 11/09/2022 LIPID PANEL REFLEX Routine 11/09/2022 THYROID STIMULATING HORMONE Routine 11/09/2022 VITAMIN B12 LEVEL Routine 11/09/2022 T3 FREE Routine 11/09/2022 T4, FREE (THYROXINE) Routine 11/09/2022 VITAMIN D 25 HYDROXY Routine 11/09/2022 MICROALBUMIN/CREATININ E RATIO URINE Routine 11/09/2022 POCT GLYCATED HEMOGLOBIN, TOTAL Routine 05/14/2022 11:22 AM EST Type 2 diabetes mellitus without complication, without long-term current use of insulin (HCC) POCT GLYCATED HEMOGLOBIN, TOTAL Routine 11/08/2021 10:31 AM EDT Type 2 diabetes mellitus without complication, without long-term current use of insulin (HCC) MICROALBUMIN/CREATININ E RATIO URINE Routine 05/03/2021 LIPID PANEL REFLEX Routine 05/03/2021 BASIC METABOLIC PANEL Routine 05/03/2021 SCANNED LABS 11/11/2020 2:35 PM EDT POCT GLYCATED HEMOGLOBIN, TOTAL Routine 11/04/2020 10:24 AM EDT Type 2 diabetes mellitus without complication, without long-term current use of insulin (HCC) VITAMIN D 25 HYDROXY Routine 2020 VITAMIN B12 LEVEL Routine 2020 MICROALBUMIN/CREATININ E RATIO URINE Routine 2020 HEMOGLOBIN A1C Routine 2020 THYROID STIMULATING HORMONE Routine 2020 LIPID PANEL REFLEX Routine 2020 COMPREHENSIVE METABOLIC PANEL Routine 2020 Results * (ABNORMAL) POCT GLYCATED HEMOGLOBIN, TOTAL (08/03/2024 3:24 PM EDT) Only the most recent of6 resultswithin the time period is included. Hemoglobin A1C 6.7(A) 4 - 6 % SEP [facility] Lot Number SEP OFFICE Expiration Date SEP OFFICE SeriAl # SEP OFFICE 08/03/2024 3:24 PM EDT us Reno Suggs MD POINT OF CARE TEST ORDERABLES Final Result SEP OFFICE * LIPID PANEL REFLEX (11/05/2023) Only the most recent of5 resultswithin the time period is included. Triglycerides 105 MG/DL [facility] Cholesterol 165 0 - 200 MG/DL SEP [facility] LDL Cholesterol 65.82 MG/DL SEP [facility] VLDL 21 MG/DL SEP [facility] HDL 70 35 - 70 MG/DL SEP OFFICE Chol/HDL Ratio 2.4 SEP OFFICE Blood VENOUS BLOOD / Unknown 11/05/2023 us Mateusz Estevez MD CHEMISTRY ORDERABLES Final R esult Performing Organization Address City/State/[facility] Co de Phone Number SEP OFFICE * VITAMIN D 25 HYDROXY (11/05/2023) Only the most recent of4 resultswithin the time period is included. VIT D 25 OH 49.9 NG/ML [facility]P [facility] Blood VENOUS BLOOD / Unknown 11/05/2023 us Mateusz Estevez MD CHEMISTRY ORDERABLES Final R esult Performing Organization Address City/[facility]/ZIP Co de Phone Number SEP OFFICE * MICROALBUMIN/CREATININE RATIO URINE (11/05/2023) Only the most recent of5 resultswithin the time period is included. Microalbumin/Cr eatinine Ratio-ARUP 12.2 MG/GM SEP OFF[facility] Creatinine Urine 103 SEP OFFICE Ur Microalb 12.600 SEP OFFICE Urine URINE SPECIMEN COLLECTION / Unknown 11/05/2023 us Mateusz Estevez MD URINE ORDERABLES Final Resul t Performing Organization Address City/[facility] Co de Phone Number SEP OFFICE * THYROID STIMULATING HORMONE (11/05/2023) Only the most recent of3 resultswithin the time period is included. TSH 2.870 0.400 - 4.500 MCIU/ML SEP OFF[facility] Blood VENOUS BLOOD / Unknown 11/05/2023 us Mateusz Estevez MD CHEMISTRY ORDERABLES Final R esult SEP OFFICE * HEMOGLOBIN A1C (11/05/2023) Only the most recent of4 resultswithin the time period is included. Hgb A1C 7.8 SEP OFFICE Blood VENOUS BLOOD / Unknown 11/05/2023 Mateusz Estevez MD CHEMISTRY ORDERABLES Final R esult SEP OFFICE * VITAMIN B12 LEVEL (11/05/2023) Only the most recent of4 resultswithin the time period is included. Vitamin B12 953 PG/ML SEP [facility] Blood VENOUS BLOOD / Unknown 11/05/2023 Mateusz Estevez MD CHEMISTRY ORDERABLES Final R esult Performing Organization Address City/[facility] Co de Phone Number SEP OFFICE * COMPREHENSIVE METABOLIC PANEL (11/05/2023) Only the most recent of4 resultswithin the time period is included. Sodium 139 137 - 147 MMOL/L SEP OFFICE Potassium 4.5 3.4 - 5.3 MMOL/L SEP OFFICE Chloride 106 99 - 108 MMOL/L SEP OFFICE CO2 26 MMOL/L SEP [facility] Anion Gap 11.5 MMOL/L SEP OFFICE BUN 21 4 - 21 MG/DL SEP OFFICE Creatinine 0.7 0.5 - 1.1 MG/DL SEP OFFICE GFR Afr Am 98 SEP OFFICE GFR Non Afr Am 81 SEP OFFICE Glucose Lvl 211 MG/DL SEP OFFICE Calcium 9.90 8.70 - 10.70 MG/DL SEP OFFICE Total Bilirubin 0.8 0.1 - 1.4 MG/DL SEP OFFICE AST 29 13 - 35 IU/L SEP OFFICE ALT 27 7 - 35 IU/L SEP OFFICE Total Protein 6.6 6.4 - 8.2 GM/DL SEP OFFICE Albumin 4.3 GM/DL SEP OFFICE Globulin 2.3 G/DL(CALC) SEP OFFICE Albumin/Globulin Ratio 1.9 SEP OFFICE Alk Phos 65 25 - 125 IU/L SEP OFFICE Blood VENOUS BLOOD / Unknown 11/05/2023 us Mateusz Estevez MD CHEMISTRY ORDERABLES Final R esult SEP OFFICE * HM DIABETES EYE EXAM (08/19/2023 7:18 AM EDT) Left Diabetic Retinopathy Not Present Not Present Present/Not Present [facility]P [facility] Right Diabetic Retinopathy Not Present Not Present Present/Not Present SEP OFFICE Impressions SEP OFFICE - 08/19/2023 7:18 AM EDT Jackedr Fredo Torres, OD us Historical Provider HEALTH MAINTENANCE Edited Re sult - Final Performing Organization Address [facility] Co de Phone Number SEP OFFICE * SCANNED LABS (05/14/2023 11:00 AM EST) Only the most recent of3 resultswithin the time period is included. 05/14/2023 11:0 0 AM EST us Unknown Provider HEMATOLOGY ORDERABLES Final Res ult * T3 FREE (11/09/2022) T3 Free 2.3 PG/ML SEP [facility] Comment:2.0-4.4 Blood VENOUS BLOOD / Unknown 11/09/2022 Reno Suggs MD CHEMISTRY ORDERABLES Final Re sult Performing Organization Address [facility] de Phone Number SEP OFFICE * T4, FREE (THYROXINE) (11/09/2022) Free T4 1.05 NG/DL SEP OFFICE Comment:0.78-2.19 Blood VENOUS BLOOD / Unknown 11/09/2022 Reno Suggs MD CHEMISTRY ORDERABLES Final Re sult Performing Organization Address [facility] Co de Phone Number SEP OFFICE * BASIC METABOLIC PANEL (05/03/2021) Sodium 137 137 - 147 MMOL/L SEP OFFICE Comment:136-145 Potassium 4.2 3.4 - 5.3 MMOL/L SEP OFFICE Comment:3.5-5.1 Chloride 101 99 - 108 MMOL/L SEP OFFICE Comment:98-197 CO2 31 MMOL/L SEP OFFICE Comment:22.0-30.0 Anion Gap 9.2 MMOL/L SEP OFFICE Comment:5-15 BUN 16 4 - 21 MG/DL SEP OFFICE Comment:7-17 Creatinine 0.7 0.5 - 1.1 MG/DL SEP OFFICE Comment:0.52-1.04 Gely GFR Afr Am 99 SEP OFFICE Comment:60 Globulin, Total 146 SEP OFFICE Comment:74-100 A1c 7.0 SEP OFFICE Comment:4.0-6.0 Calcium 9.70 8.70 - 10.70 MG/DL SEP OFFICE Total Bilirubin 0.9 0.1 - 1.4 MG/DL SEP OFFICE Comment:0.2-1.3 AST 29 13 - 35 IU/L SEP OFFICE Comment:14-36 ALT 19 7 - 35 IU/L SEP OFFICE Comment:12-78 A/G Ratio 2.1 (CALC) SEP OFFICE Comment:1.1-1.8 Blood VENOUS BLOOD / Unknown 05/03/2021 us Reno Suggs MD CHEMISTRY ORDERABLES Final Re sult SEP OFFICE Visit Diagnoses Diagnosis Start Date Type 2 diabetes mellitus without complication, without long-term current use of insulin ([facility]) 05/02/2020 Hypercholesterolemia Pure hypercholesterolemia 05/02/2020 Essential hypertension Unspecified essential hypertension 05/02/2020 Type 2 diabetes mellitus without complication, without long-term current use of insulin ([facility]) 11/04/2020 Hyperlipidemia associated with type 2 diabetes mellitus (HCC) 11/04/2020 Hypertension associated with diabetes (HCC) Type II or unspecified type diabetes mellitus with other specified manifestations, not stated as uncontrolled 11/04/2020 Type 2 diabetes mellitus without complication, without long-term current use of insulin (HCC) 05/10/2021 Hypertension associated with diabetes (HCC) Type II or unspecified type diabetes mellitus with other specified manifestations, not stated as uncontrolled 05/10/2021 Hyperlipidemia associated with type 2 diabetes mellitus (HCC) 05/10/2021 Type 2 diabetes mellitus without complication, without long-term current use of insulin (HCC) 11/08/2021 Type 2 diabetes mellitus without complication, without long-term current use of insulin ([facility]) 05/14/2022 Type 2 diabetes mellitus without complication, without long-term current use of insulin ([facility]) 11/07/2022 Hypertension associated with diabetes (HCC) Type II or unspecified type diabetes mellitus with other specified manifestations, not stated as uncontrolled 11/07/2022 Vitamin D deficiency Unspecified vitamin D deficiency 11/07/2022 Vitamin B 12 deficiency Other B-complex deficiencies 11/07/2022 Type 2 diabetes mellitus without complication, without long-term current use of insulin ([facility]) 11/12/2022 Hypertension associated with diabetes (HCC) Type II or unspecified type diabetes mellitus with other specified manifestations, not stated as uncontrolled 11/12/2022 Vitamin D deficiency Unspecified vitamin D deficiency 11/12/2022 Vitamin B 12 deficiency Other B-complex deficiencies 11/12/2022 Hyperlipidemia associated with type 2 diabetes mellitus (HCC) 11/12/2022 Type 2 diabetes mellitus without complication, without long-term current use of insulin ([facility]) 05/15/2023 Hypertension associated with diabetes (HCC) Type II or unspecified type diabetes mellitus with other specified manifestations, not stated as uncontrolled 05/15/2023 Hyperlipidemia associated with type 2 diabetes mellitus ([facility]) 05/15/2023 Vitamin D deficiency Unspecified vitamin D deficiency 05/15/2023 Vitamin B 12 deficiency Other B-complex deficiencies 05/15/2023 Type 2 diabetes mellitus without complication, without long-term current use of insulin ([facility]) 09/18/2023 Type 2 diabetes mellitus without complication, without long-term current use of insulin ([facility]) 09/25/2023 Type 2 diabetes mellitus without complication, without long-term current use of insulin ([facility]) 09/26/2023 Type 2 diabetes mellitus without complication, without long-term current use of insulin ([facility]) 10/10/2023 Type 2 diabetes mellitus without complication, without long-term current use of insulin ([facility]) 11/13/2023 Type 2 diabetes mellitus without complication, without long-term current use of insulin ([facility]) 02/20/2024 Type 2 diabetes mellitus with hyperglycemia, with long-term current use of insulin ([facility]) 02/20/2024 Type 2 diabetes mellitus without complication, without long-term current use of insulin ([facility]) 07/21/2024 Type 2 diabetes mellitus without complication, without long-term current use of insulin ([facility]) 08/03/2024 Hypertension associated with diabetes (HCC) Type II or unspecified type diabetes mellitus with other specified manifestations, not stated as uncontrolled 08/03/2024 Care Teams Greens Laborer Relationship Specialty Start Date End Date Mateusz Estevez MD [address] [place] [id number] PCP - General Family Medicine 05/02/20
== END 2024-09-30 23:59 | disposition home or self-care (01) ==
LOC: RAD 14:56
PROVIDERS: PCP Family Medicine; Visit Provider Family Medicine
DX: Z12.31 Encounter for screening mammogram for malignant neoplasm of breast (principal); R92.323 Mammographic fibroglandular density, bilateral breasts
CPT/HCPCS: 77063; 77067

== ENCOUNTER 2024-12-17 10:56 | Day surgery (SDC) | payer MEDICARE, SELFPAY ==
[2024-12-15 15:25] VITALS: BMI 26.6
--- NOTE | 2024-12-16 15:42 | EXP.HP ---
History of Present Illness *Admission Date: 12/17/24 *Reason for visit:: Personal history of adenomatous colon polyps and family history of colon ca *History of present illness: Mrs. Stallworth is a 79-year-old female who is here for screening/surveillance colonoscopy. The patient's last colonoscopy was 5 years ago and she did have adenomatous colon polyps removed. Her mother had colon cancer in her 60s and she is due for repeat surveillance colonoscopy. She does have a history of IBS and sucrase isomaltase deficiency. She has had excessive bloating and gassiness and has significantly improved with low sucrose diet and Sucraid. She does struggle with some constipation and is on MiraLAX plus Citrucel daily.. The examination is deemed medically necessary for screening/surveillance colonoscopy. The patient has been seen, interviewed and examined prior to the procedure by both myself and the anesthesia provider. [facility] Disclaimer: The information contained in this section may have been updated after the patient was seen, as this information can be updated by other users. Medical History Cataracts, both eyes GERD (gastroesophageal reflux disease) Cancer Hyperlipemia Hypertension Diabetes mellitus Surgical History History of reverse total replacement of right shoulder joint History of aortic valve replacement History of right knee joint replacement H/O tubal ligation Family History Other No significant family history Social History (Updated 12/17/24 @ 11:31 by Amie Zamudio RN) Smoking Status: Never smoker second hand exposure: No alcohol intake: never substance use type: denies use current occupational status: retired Travel in the last 8 weeks?: None household members: spouse housing: house current occupational exposures/hazards: No caffeine: Yes Have you lived/traveled outside [place] in past 30 days?: No Contact w/someone who lives/traveled outside [place] past 30 days?: No Exposure to someone with infectious disease in past 14 days?: No Do you have a fever (greater than 100.4 F or 38 C)?: No Have you tested positive for COVID-19?: No Exposed to someone with COVID-19 in past 14 days?: No Do you have a sore throat?: No Do you have a cough?: No Do you have any weakness?: No Are you experiencing any nausea/vomitting?: No Do you have any diarrhea?: No Are you experiencing any unusual bleeding?: No Do you have any muscle aches/pain?: No Do you have any abdominal pain?: No Are you experiencing loss of taste or smell?: No Other Medical History Have you received the Flu Vaccine for this season: Yes Have you received the Pneumonia Vaccine: Yes Review of Systems Review of Systems Review of systems (narrative): Negative *Cardiovascular Comments: Negative *Gastrointestinal Comments: Negative *Genitourinary Comments: Negative *Musculoskeletal Comments: Negative *Neurologic Comments: Negative Meds Home Medications and Allergies Home Medications ?Medication ?Instructions ?Recorded ?Confirmed ?Type calcium carbonate 500 mg PO BID Supplement 07/10/17 12/17/24 History coenzyme Q10 75 mg capsule (Ultra 75 mg PO DAILY Supplement 07/10/17 12/17/24 History CoQ10) colesevelam 625 mg tablet (WelChol) 1,250 mg PO BID Cholesterol 07/10/17 12/17/24 History empagliflozin 25 mg tablet 25 mg PO QAM sugar 07/10/17 12/17/24 History (Jardiance) metoprolol tartrate 25 mg tablet 12.5 mg PO BID bp 07/10/17 12/17/24 History omega-3 acid ethyl esters 1 gram 2 cap PO BID Supplement 07/10/17 12/17/24 History capsule (Lovaza) pravastatin 40 mg tablet 40 mg PO QHS Cholesterol 07/10/17 12/17/24 History (Pravachol) ramipril 2.5 mg capsule 2.5 mg PO BID bp 07/10/17 12/17/24 History vitamin D3 800 unit-folic acid 1 800 cap PO BID Supplement 07/10/17 12/17/24 History mg-collagen,hydrolys 300 mg capsule multivitamin 1 each PO DAILY Supplement 08/13/17 12/17/24 History aspirin 81 mg tablet,delayed 81 mg PO DAILY heart 04/09/18 12/17/24 History release cyanocobalamin (vitamin B-12) 1,000 mcg PO DAILY Supplement 04/29/19 12/17/24 History 1,000 mcg capsule glimepiride 4 mg tablet 4 mg PO BID Diabetes 04/29/19 12/17/24 History metformin 1,000 mg tablet 1,000 mg PO BID Diabetes 04/29/19 12/17/24 History celecoxib 100 mg capsule (Celebrex) 100 mg PO DAILY 01/16/23 12/17/24 History blood sugar diagnostic (Accu-Chek #10 ea 03/20/23 12/15/24 History Shalonda Plus test strips) lancets (Accu-Chek Softclix #100 ea 03/20/23 12/15/24 History Lancets) sacrosidase 8,500 unit/mL oral 2 ml PO 6XD #1,080 mL 04/08/24 12/17/24 Rx solution (Sucraid) methylcellulose (laxative) 2 g PO DAILY 10/07/24 12/15/24 History (Citrucel Sugar Free oral powder) polyethylene glycol 3350 17 17 g PO DAILY 10/07/24 12/17/24 History gram/dose oral powder (Miralax) omeprazole 40 mg capsule,delayed 40 mg PO DAILY #60 caps 10/14/24 12/17/24 Rx release sodium,potassium,mag sulfates 17.5 See Rx Instructions PO .COMPLEX 12/03/24 12/15/24 Rx gram-3.13 gram-1.6 gram oral soln #354 mL (Suprep Bowel Prep Kit) New Prescriptions to Start Prescriptions: Allergies Allergy/AdvReac Type Severity Reaction Status Date / Time No Known Allergies Allergy Verified 12/17/24 11:22 Exam Data for Last 24 hours I & O for Last 24 hours: Intake & Output 12/13/24 12/14/24 12/15/24 12/16/24 23:59 23:59 23:59 23:59 Weight 165 lb *Routine HEENT Exam Head: Present normocephalic Eye: Present EOMI and PERRL ENT: Present mucous membranes moist *Routine Neck Exam Neck: Present supple *Routine Respiratory Exam Respiratory: Present CTA bilaterally *Routine Cardiovascular Exam Cardiovascular: Present RRR *Routine Abdominal Exam Abdominal: Present soft and normoactive bowel sounds; Absent tenderness *Routine Rectal Exam Rectal:: deferred *Routine Genitalia Exam Genitalia:: deferred *Routine Extremities Exam Extremities: Absent cyanosis, clubbing or edema *Routine Skin Exam Skin: Present warm; Absent rash *Routine Neurological Exam Neurological: Present alert and oriented X3 Assessment and Plan *Assessment and plan (1) Family history of colon cancer in mother: Status: Acute Category: Medical Code(s): Z80.0 - Family history of malignant neoplasm of digestive organs (2) History of adenomatous polyp of colon: Status: Acute Category: Medical Code(s): Z86.0101 - Personal history of adenomatous and serrated colon polyps (3) Screening for colon cancer: Status: Acute Category: Medical Code(s): Z12.11 - Encounter for screening for malignant neoplasm of colon Plan A/P: 1. Personal history of adenomatous colon polyps and family history of colon cancer is the preprocedural diagnosis. The patient will be anesthetized/sedated using MAC sedation. The patient has been seen and examined. Cardiac and lung assessment prior to the examination is stable. Proceed with planned screening/surveillance colonoscopy.
[2024-12-17 11:30] VITALS: BP 177/75; PULSE 67; RESP 18; TEMP 36.1; O2SAT 99
[2024-12-17] MEDS: LACTATED RINGERS 1000ML 1,000 ML 50 ML IV (11:42)
[2024-12-17 12:16] LABS: POC Glucose,Bedside 156 gm/dL (70-110)
--- NOTE | 2024-12-17 12:35 | P.PNANES_ITS ---
[facility] Disclaimer: The information contained in this section may have been updated after the patient was seen, as this information can be updated by other users. Medical History Cataracts, both eyes GERD (gastroesophageal reflux disease) Cancer Hyperlipemia Hypertension Diabetes mellitus Surgical History History of reverse total replacement of right shoulder joint History of aortic valve replacement History of right knee joint replacement H/O tubal ligation Family History Other No significant family history Social History (Updated 12/17/24 @ 11:31 by Amie Zamudio RN) Smoking Status: Never smoker second hand exposure: No alcohol intake: never substance use type: denies use current occupational status: retired Travel in the last 8 weeks?: None household members: spouse housing: house current occupational exposures/hazards: No caffeine: Yes Have you lived/traveled outside [place] in past 30 days?: No Contact w/someone who lives/traveled outside [place] past 30 days?: No Exposure to someone with infectious disease in past 14 days?: No Do you have a fever (greater than 100.4 F or 38 C)?: No Have you tested positive for COVID-19?: No Exposed to someone with COVID-19 in past 14 days?: No Do you have a sore throat?: No Do you have a cough?: No Do you have any weakness?: No Are you experiencing any nausea/vomitting?: No Do you have any diarrhea?: No Are you experiencing any unusual bleeding?: No Do you have any muscle aches/pain?: No Do you have any abdominal pain?: No Are you experiencing loss of taste or smell?: No [facility] Anesthesia Checklist Patient Identification Patient Identification: Arm Band Structural Data Admitted From: Home Planned Operative Procedure/s: Colonoscopy Consent for Planned Operative Procedure(s) Verified: Yes Verified Documents: Surgical Consent and History and Physical NPO Status Verified Time NPO: 00:00 Additional verifications Anesthesia Reactions: No Hx Blood Transfusions: No Blood Transfusion Reaction: No Airway Assessment Mallampati Score:: Class II C-Spine Mobility Assessed: Yes TMJ Mobility Assessed: Yes Dentition: Good Dentition Neurological Assessment Level of Consciousness: Awake, Alert and Appropriate Anesthesia Plan Anesthesia Risk discussed: Yes Anesthesia Plan: Verified ASA Class: II Anesthesia Type: MAC
--- NOTE | 2024-12-17 12:46 | P.PCN_ITS ---
[facility] Procedure Note Date: 12/17/24 Time: 13:12 Procedure Note:: Colonoscopy Procedure Report: Colonoscopy with cold snare polypectomy Endoscopist: Diego Grimaldo II, MD Referring physician: Robe Bedolla MD Date of Procedure: December 17, 2024 Equipment: Olympus [id number] adult colonoscope Sedation: MAC sedation Indication: Mrs. Stallworth is a 79-year-old female who is here for screening/surveillance colonoscopy. The patient's last colonoscopy was 5 years ago and she did have adenomatous colon polyps removed. Her mother had colon cancer in her 60s and she is due for repeat surveillance colonoscopy. She does have a history of IBS and sucrase isomaltase deficiency. She has had excessive bloating and gassiness and has significantly improved with low sucrose diet and Sucraid. She does struggle with some constipation and is on MiraLAX plus Citrucel daily.. Procedure: Prior to the procedure, a history and physical exam was performed, and patient's medications and allergies were reviewed. The risks, benefits and alternatives of the sedation and procedure were discussed with the patient. All questions were answered and informed consent was obtained. The patient was brought to the procedure room. Patient identification and proposed procedure were verified by the physician and the nurse. The patient was placed in a left lateral decubitus position and the scope was passed under direct vision. Throughout the procedure, the patient's blood pressure, pulse, and oxygen saturations were monitored continuously. The colonoscopy was accomplished without difficulty. The patient tolerated the procedure well. Findings: On digital rectal examination there was normal rectal tone. There were no external hemorrhoids. The colonoscope was introduced through the anal canal to the rectum and advanced to the cecum. The ileocecal valve and appendiceal orifice were identified. The scope was advanced a short distance into the ileum which appeared grossly normal. The scope was then withdrawn into the colon. There was a single 4 to 5 mm polyp in the mid ascending colon with mucus cap (probable small serrated adenoma) which was removed via cold snare polypectomy. The remaining cecum, ascending and transverse colon and mucosa were grossly normal. There were scattered diverticuli throughout the descending and sigmoid colon (LEFT colon). The rectum itself was normal. Upon retroflexion within the rectum there were small grade 1 internal hemorrhoids. The preparation was excellent throughout with [place] Preparation Score of 9. The cecal time was 12 minutes. Impression: 1. Diminutive ascending colon polyp (4 to 5 mm) 2. Left-sided diverticulosis 3. Grade 1 internal hemorrhoids Plan: I will follow-up the polyp histology. I am not convinced that the patient will require any further preventive/screening colonoscopy.
[2024-12-17 13:14] VITALS: BP 92/46; PULSE 58; RESP 18; TEMP 36.1; O2SAT 98
[2024-12-17 13:24] VITALS: BP 130/62; PULSE 60; RESP 17; TEMP 36.1; O2SAT 100
[2024-12-17 13:34] VITALS: BP 142/82; PULSE 59; RESP 18; TEMP 36.1; O2SAT 96
[2024-12-17 13:46] VITALS: BP 128/71; PULSE 65; RESP 18; TEMP 36.1; O2SAT 98
== END 2024-12-17 13:53 | disposition home or self-care (01) ==
PROVIDERS: PCP Family Medicine; Visit Provider Internal Medicine Gastroenterology
PROC: 0DJD8ZZ Inspection of Lower Intestinal Tract, Via Natural or Artificial Opening Endoscopic (ICD-10-PCS; CPT 45378; principal; 2024-12-17 12:30)
DX: Z12.11 Encounter for screening for malignant neoplasm of colon (principal); K63.5 Polyp of colon; K57.30 Diverticulosis of large intestine without perforation or abscess without bleeding; K64.0 First degree hemorrhoids; E11.9 Type 2 diabetes mellitus without complications; K21.9 Gastro-esophageal reflux disease without esophagitis; I10 Essential (primary) hypertension; E78.5 Hyperlipidemia, unspecified; Z80.0 Family history of malignant neoplasm of digestive organs; Z86.0101 Personal history of adenomatous and serrated colon polyps; Z79.82 Long term (current) use of aspirin; Z79.899 Other long term (current) drug therapy
CPT/HCPCS: 45385; 82962; 88305; J2003; J2704; J7120